=== PATIENT | female | born 1950 | race Hispanic/Latino ===

== ENCOUNTER 2018-09-13 01:54 | Inpatient (IN) | payer OTHER ==
--- NOTE | 2018-09-13 01:42 | ED PDOC ---
Arrival/HPI - General Chief Complaint: Abdominal Pain Time Seen by Provider: 09/13/18 01:59 EDT Historian: Patient, Solar Energy Advisor - History of Present Illness Narrative History of Present Illness (Text): 09/13/18 01:35 EST 68 year old [place] speaking female, whose past medical history includes hypertension, right-sided breast cancer on Tomoxifen, surgery for intestinal obstruction, and history of polyps, presents to the emergency department complaining of abdominal pain associated with nausea and multiple episodes of vomiting that began last night. Patient is coming from a [place]. Patient denies any fevers, chills, chest pain, shortness of breath, diarrhea, back pain, neck pain, urinary symptoms, headache, dizziness, or any other complaint. Time/Duration: 24 hours Symptom Course: Unchanged Activities at Onset: Light Context: Other (Cruise Ship) Past Medical History - Provider Review Nursing Documentation Reviewed: Yes - Infectious Disease Hx of Infectious Diseases: None - Reproductive Menopause: Yes Family/Social History - Physician Review Nursing Documentation Reviewed: Yes Family/Social History: No Known Family HX Allergies/Home Meds Allergies/Adverse Reactions: Allergies No Known Allergies Allergy (Verified 09/13/18 01:12 EST) Home Medications: Home Meds Medication Instructions Recorded Confirmed Unobtainable 09/13/18 09/13/18 Review of Systems - Physician Review All systems were reviewed & negative as marked: Yes - Review of Systems Constitutional: absent: Fevers, Other (Chills) Respiratory: absent: SOB Cardiovascular: absent: Chest Pain Gastrointestinal: Abdominal Pain, Nausea, Vomiting. absent: Diarrhea Genitourinary Female: absent: Dysuria, Frequency, Hematuria Musculoskeletal: absent: Back Pain, Neck Pain Neurological: absent: Headache, Dizziness Physical Exam Vital Signs Reviewed: Yes Vital Signs Temp Pulse Resp BP Pulse Ox 09/13/18 01:14 EST 98.3 F 92 H 18 169/69 H 95 Temperature: Afebrile Blood Pressure: Hypertensive Pulse: Regular Respiratory Rate: Normal Appearance: Positive for: Well-Appearing, Non-Toxic, Comfortable Pain Distress: None Mental Status: Positive for: Alert and Oriented X 3 - Systems Exam Head: Present: Atraumatic, Normocephalic Pupils: Present: PERRL Extroacular Muscles: Present: EOMI Conjunctiva: Present: Normal Mouth: Present: Moist Mucous Membranes Neck: Present: Normal Range of Motion Respiratory/Chest: Present: Clear to Auscultation, Good Air Exchange. No: Respiratory Distress, Accessory Muscle Use Cardiovascular: Present: Regular Rate and Rhythm, Normal S1, S2. No: Murmurs Abdomen: Present: Tenderness (Abdominal diiffuse tenderness ), Distention. No: Peritoneal Signs Back: Present: Normal Inspection Upper Extremity: Present: Normal Inspection. No: Cyanosis, Edema Lower Extremity: Present: Normal Inspection. No: Edema Neurological: Present: GCS=15, CN II-XII Intact, Speech Normal Skin: Present: Warm, Dry, Normal Color. No: Rashes Psychiatric: Present: Alert, Oriented x 3, Normal Insight, Normal Concentration Medical Decision Making ED Course and Treatment: 09/13/18 01:35 EST Impression: 68 year old female presents complaining of abdominal pain associated with nausea and multiple episodes of vomiting that began last night. Plan: -- CT Abd & Pelvis IV Contrast -- EKG -- Labs -- Chest X-ray -- Morphine, Pepcid, IV Fluids, Zofran Inj -- Urinalysis -- Reassess and disposition Progress Notes: 09/13/18 03:30 EKG shows NSR at 91 BPM with prolong QT, no acute changes. Interpreted by me. 09/13/18 05:18 CXR Impression: As read by me, no acute process. EXAM: CT SCAN OF THE ABDOMEN AND PELVIS WITH CONTRAST. Electronically signed on Sep 13, 2018 5:37:44 AM EST by: Yin Mendoza M.D IMPRESSION: Acute sigmoid diverticulitis. Surrounding 7.3x3.8 cm pelvic phlegmon formation. Moderate pneumoperitoneum secondary to diverticular perforation. Diffuse peritoneal inflammatory thickening suggestive of peritonitis. Reactive thickening and enhancement of the adjacent small bowel. Diffuse diverticular disease of the colon. Emergent surgical consultation is recommended. 09/13/18 05:40 Case discussed with surgical first assistant who will come down and evaluate patient. 09/13/18 06:[address] Vides who is aware and agrees with the plan. Accepts patient into his service and request Dr. Pimentel for consult. 09/13/18 06:02 Stat call put in for Dr. Pimentel. Buffet Waiter/Waitress evaluating patient at bed side. 09/13/18 06:15 Patient was admitted but will remain in ER until evaluated by surgery for final disposition and further orders due to possible surgical intervention. - Lab Interpretations I have reviewed the lab results: Yes - EKG Interpretation Interpreted by ED Physician: Yes Type: 12 lead EKG - Scribe Statement The provider has reviewed the documentation as recorded by the Mj Garcias Provider Scribe Attestation: All medical record entries made by the Mj were at my direction and personally dictated by me. I have reviewed the chart and agree that the record accurately reflects my personal performance of the history, physical exam, medical decision making, and the department course for this patient. I have also personally directed, reviewed, and agree with the discharge instructions and disposition. Disposition/Present on Arrival - Present on Arrival Any Indicators Present on Arrival: No History of DVT/PE: No History of Uncontrolled Diabetes: No Urinary Catheter: No History of Decub. Ulcer: No History Surgical Site Infection Following: None - Disposition Have Diagnosis and Disposition been Completed?: Yes Diagnosis: Diverticulitis, Perforation bowel Disposition: HOSPITALIZED Disposition Time: 06:08 Patient Plan: Admission Patient Problems: Current Active Problems Problem Status Onset Diverticulitis Acute Perforation bowel Acute Condition: GUARDED
[~2018-09-13 01:54] MED LIST: Morphine 2 mg/ml ISec IVP STA; Sodium Chloride 0.9% 1,000 ML IV STA
[2018-09-13 02:24] LABS: HEMOGLOBIN 12.3 g/dL (12.0-16.0); MEAN CELL VOLUME 97.9 fl (80.0-105.0); MEAN CORPUSCULAR HEMOGLOBIN 32.8 pg (25.0-35.0); MEAN CORPUSCULAR HGB CONC 33.5 g/dl (31.0-37.0); RBC 3.75 10^6/uL (3.5-6.1); WHITE BLOOD COUNT 16.1 10^3/uL (4.5-11.0)
[2018-09-13 02:30] LABS: ALB/GLOB RATIO 1.1 (1.1-1.8); ALBUMIN 3.1 g/dL (3.0-4.8); ALT/SGPT 37 U/L (7-56); AST/SGOT 23 U/L (14-36); BLOOD UREA NITROGEN 10 mg/dL (7-21); CALCIUM 7.9 mg/dL (8.4-10.5); GFR NON-AFRICAN AMERICAN > 60; LIPASE 11 U/L (23-300)
[2018-09-13] MEDS ORDERED: cefTRIAXone 1 gm 1 GM/100 ML BAG IV STA (02:35)
[2018-09-13] MEDS ORDERED: metroNIDAZOLE IV 500 mg/100 ml 500 MG/100 ML BAG IVPB STA (02:35)
[2018-09-13 02:45] LABS: INR 1.21; PARTIAL THROMBOPLASTIN TIME 26.3 Seconds (25.1-36.5); PROTHROMBIN TIME 13.8 SECONDS (9.4-12.5)
[2018-09-13] MEDS ORDERED: Iohexol 350 MG/100 ML VIAL ONE (03:30)
[2018-09-13] MEDS ORDERED: Piperacillin/Tazobact 3.375 gm 100 ML IV STA (05:42)
[2018-09-13 05:55] LABS: URINE BILIRUBIN NEGATIVE (NEGATIVE); URINE BLOOD NEGATIVE (NEGATIVE); URINE GLUCOSE (UA) NEGATIVE (NEGATIVE); URINE LEUKOCYTE ESTERASE NEGATIVE Leu/uL (NEGATIVE); URINE PROTEIN NEGATIVE mg/dL (<30 mg/dL); URINE UROBILINOGEN 0.2 E.U./dL (<1 E.U./dL)
[2018-09-13 06:03] LABS: URINE APPEARANCE CLEAR (CLEAR); URINE COLOR YELLOW (YELLOW)
[2018-09-13] MEDS ORDERED: HYDROmorphone 1 mg/ml ISec IVP PRN (06:58)
[2018-09-13] MEDS ORDERED: cefTRIAXone 500 MG in Sodium Chloride 0.9% 50 ML IVPB SCH (07:00)
[2018-09-13] MEDS: metroNIDAZOLE IV 500 mg/100 ml 500 MG/100 ML BAG IVPB SCH ×3 (08:10→23:00)
[2018-09-13 08:17] LABS: VENOUS BLOOD GAS BASE EXCESS -0.5 mmol/L (0.0-2.0); VENOUS BLOOD GAS PO2 226 mm/Hg (30-55); VENOUS BLOOD PH 7.44 (7.32-7.43)
--- NOTE | 2018-09-13 09:11 | RAD ---
Date of service: 09/13/2018 HISTORY: abdominal pain COMPARISON: No prior. FINDINGS: LUNGS: No active pulmonary disease. PLEURA: No significant pleural effusion identified, no pneumothorax apparent. CARDIOVASCULAR: Aortic calcification Normal cardiac size. No pulmonary vascular congestion. OSSEOUS STRUCTURES: No significant abnormalities. VISUALIZED UPPER ABDOMEN: Normal. OTHER FINDINGS: None. IMPRESSION: No active disease.
--- NOTE | 2018-09-13 10:01 | CARD ---
APPROVED REPORT Date of service: 09/13/2018 EKG Measurement Heart [id number] <Conclusion> Normal sinus rhythm Prolonged QT Abnormal ECG
[2018-09-13] MEDS ORDERED: Morphine 2 mg/ml ISec IVP PRN (10:02)
--- NOTE | 2018-09-13 10:39 | CP.PCM.CON ---
History of Present Illness - History of Present Illness History of Present Illness: General Surgery Consult Note for Dr. 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 Patient came from a [place] cruise [place] and does not speak gu[place], cook mess used for interpretation. States last night at 7pm she began having excruciating sharp diffuse abdominal pain. She had a similar pain episode 22 years ago when she had a volvulus. Movement aggravates while the pain medication helped alleviate the pain. Admits to subjective fever prior to arrival, multiple episodes of vomiting, nausea. 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 absent: Chills - Cardiovascular Cardiovascular: absent: Chest Pain, Dyspnea - Respiratory Respiratory: absent: Cough, Dyspnea - Gastrointestinal Gastrointestinal: Abdominal Pain, Nausea, Vomiting Past Patient History - Infectious Disease Hx of Infectious Diseases: None - Past Social History Smoking Status: Never Smoked - CARDIAC Hx Hypertension: Yes - HEMATOLOGICAL/ONCOLOGICAL Hx Cancer: Yes (right breast cancer 22 years ago) - PSYCHIATRIC Hx Substance Use: No - SURGICAL HISTORY Other/Comment: hx of obstruction - ANESTHESIA Hx Anesthesia: Yes Hx Anesthesia Reactions: No Hx Malignant Hyperthermia: No Meds Allergies/Adverse Reactions: Allergies Allergy/AdvReac Type Severity Reaction Status Date / Time No Known Allergies Allergy Verified 09/13/18 01:12 EST - Medications Medications: Current Medications Ceftriaxone Sodium 500 mg/ (Sodium Chloride) 50 mls @ 100 mls/hr IVPB Q24H LISA; Protocol Metronidazole (Flagyl) 500 mg in 100 mls @ 100 mls/hr IVPB Q8 LISA; Protocol Last Admin: 09/13/18 08:10 Dose: 100 mls/hr Lactated Ringer's (Lactated Ringer's) 1,000 mls @ 110 mls/hr IV .Q9H6M LISA Morphine Sulfate (Morphine) 2 mg IVP Q4H PRN PRN Reason: Pain, moderate (4-7) Ondansetron HCl (Zofran Inj) 4 mg IVP Q4H PRN PRN Reason: Nausea/Vomiting Physical Exam - Constitutional Appears: Toxic, In Acute Distress - Head Exam Head Exam: ATRAUMATIC, NORMAL INSPECTION, NORMOCEPHALIC - Eye Exam Eye Exam: EOMI - ENT Exam ENT Exam: Mucous Membranes Dry - Cardiovascular Exam Cardiovascular Exam: REGULAR RHYTHM - GI/Abdominal Exam GI & Abdominal Exam: Distended, Firm, Rebound, Tenderness - Neurological Exam Neurological exam: Alert - Psychiatric Exam Psychiatric exam: Normal Affect, Normal Mood Results - Vital Signs Recent Vital Signs: Last Vital Signs Temp 98 F 09/13/18 08:12 Pulse 70 09/13/18 08:12 Resp 18 09/13/18 08:12 BP 160/71 H 09/13/18 08:12 Pulse Ox 99 09/13/18 08:12 - Labs Result Diagrams: 09/13/18 02:15 09/13/18 02:15 Labs: Laboratory Results - last 24 hr 09/13/18 09/13/18 09/13/18 02:15 02:15 02:26 WBC 16.1 H RBC 3.75 Hgb 12.3 Hct 36.7 MCV 97.9 MCH 32.8 MCHC 33.5 RDW 13.0 Plt Count 169 MPV 11.0 PT 13.8 H INR 1.21 APTT 26.3 pO2 VBG pH VBG pCO2 VBG HCO3 VBG Total CO2 VBG O2 Sat (Calc) VBG Base Excess VBG Potassium Glucose Lactate FiO2 Sodium 139 Potassium 3.6 Chloride 108 H Carbon Dioxide 23 Anion Gap 11 BUN 10 Creatinine 0.4 L Est GFR ( Amer) > 60 Est GFR (Non-Af Amer) > 60 Random Glucose 117 H Calcium 7.9 L Total Bilirubin 1.8 H AST 23 ALT 37 Alkaline Phosphatase 50 Total Protein 5.9 Albumin 3.1 Globulin 2.8 Albumin/Globulin Ratio 1.1 Lipase 11 L Venous Blood Potassium Urine Color Urine Appearance Urine pH Ur Specific [place] Urine Protein Urine Glucose (UA) Urine Ketones Urine Blood Urine Nitrate Urine Bilirubin Urine Urobilinogen Ur Leukocyte Esterase 09/13/18 09/13/18 05:00 08:00 WBC RBC Hgb Hct MCV MCH MCHC RDW Plt Count MPV PT INR APTT pO2 226 H VBG pH 7.44 H VBG pCO2 34.0 L VBG HCO3 23.1 VBG Total CO2 24.1 VBG O2 Sat (Calc) 99.4 H VBG Base Excess -0.5 L VBG Potassium 3.7 Glucose 123 H Lactate 1.8 FiO2 21.0 Sodium 141.0 Potassium Chloride 111.0 H Carbon Dioxide Anion Gap BUN Creatinine Est GFR ( Amer) Est GFR (Non-Af Amer) Random Glucose Calcium Total Bilirubin AST ALT Alkaline Phosphatase Total Protein Albumin Globulin Albumin/Globulin Ratio Lipase Venous Blood Potassium 3.7 Urine Color Yellow Urine Appearance Clear Urine pH 7.0 Ur Specific [place] 1.010 Urine Protein Negative Urine Glucose (UA) Negative Urine Ketones 15 H Urine Blood Negative Urine Nitrate Negative Urine Bilirubin Negative Urine Urobilinogen 0.2 Ur Leukocyte Esterase Negative Assessment & Plan - Assessment and Plan (Free Text) Assessment: 68F w/ acute abdomen 2/2 diverticulitis with abscess formation Plan: NPO IVF Pain control and antiemetics IV Abx Serial abdominal exams Recommend IR drainage If patient begins to clinically deteriorate/become hemodynamically unstable, prepare for OR Further recommendations per Dr. Margarito Trinidad PGY1
--- NOTE | 2018-09-13 13:15 | CT ---
Date of service: 09/13/2018 PROCEDURE: CT Abdomen and Pelvis with contrast HISTORY: abdominal pain COMPARISON: None. TECHNIQUE: Contrast dose: 100 cc of Omni 350 Radiation dose: Total exam DLP = 281.25 mGy-cm. This CT exam was performed using one or more of the following dose reduction techniques: Automated exposure control, adjustment of the mA and/or kV according to patient size, and/or use of iterative reconstruction technique. FINDINGS: LOWER THORAX: There is a moderate amount of free air seen beneath the diaphragms LIVER: Mild fatty infiltration of the liver. GALLBLADDER AND BILE DUCTS: Unremarkable. PANCREAS: Unremarkable. No gross lesion or ductal dilatation. SPLEEN: Unremarkable. ADRENALS: Unremarkable. No mass. KIDNEYS AND URETERS: Unremarkable. No hydronephrosis. No solid mass. VASCULATURE: Unremarkable. No aortic aneurysm. Aortic calcifications BOWEL: The source of the free air appears to be due to diverticulitis in the sigmoid colon. There is a fluid collection on the right side of the rectosigmoid consistent with an abscess. This measures 3.5 x 5 cm. APPENDIX: Normal appendix. PERITONEUM: Moderate free air LYMPH NODES: Unremarkable. No enlarged lymph nodes. BLADDER: Unremarkable. REPRODUCTIVE: Unremarkable. BONES: No acute fracture. OTHER FINDINGS: The report concurs with the preliminary [facility] report IMPRESSION: Severe sigmoid diverticulitis with diverticular abscess and moderate pneumoperitoneum.
[2018-09-13] MEDS ORDERED: HYDROmorphone 0.5 mg/0.5 ml ISec IVP STA (15:34)
--- NOTE | 2018-09-13 15:47 | HP ---
HISTORY OF PRESENT ILLNESS: She is a 68-year-old Citizen Of [place]-speaking female who presents with abdominal pain associated with nausea, multiple episodes of vomiting over the past 24 to 36 hours. She was [place] the cruise ship. PAST MEDICAL HISTORY: She has a past medical history of hypertension, right-sided breast cancer on tamoxifen. She had intestinal obstruction in the past and had surgery. She had history of polyps. She is not feeling well. She has had the abdominal pain, nausea and vomiting. She is alert. I had to have the waiter/waitress cocktail lounge Citizen Of [place]brew waiter/waitress cocktail lounge machine at bedside. We had a nice long discussion with the waiter/waitress cocktail lounge. FAMILY HISTORY: No known family history. ALLERGIES: NO KNOWN ALLERGIES. MEDICATIONS: Unobtainable. REVIEW OF SYSTEMS: No acute vision or hearing issues. She has chills. No shortness of breath. No chest pain. She has abdominal pain, nausea, vomiting. No problems urinating. No back pain or neck pain. No headache or dizziness. PHYSICAL EXAMINATION: VITAL SIGNS: She has a 98.3 temperature, 92 pulse, 18 respiratory rate, 169/69 blood pressure, 95% O2 sat. GENERAL: Uncomfortable abdominal pain, looking at me, talking. Alert and oriented x3. HEENT: Head is atraumatic, normocephalic. Extraocular muscles are intact. Pupils are equal and reactive to light. Throat is dry. NECK: Supple. HEART: Regular rate. Normal S1, S2. LUNGS: Decreased breath sounds but clear to auscultation bilaterally. ABDOMEN: Diffusely tender everywhere. Positive guarding, no rebound, almost no bowel sounds at all. EXTREMITIES: No edema. NEUROLOGIC: GCS is 50. Cranial nerves II-XII grossly intact. Normal speech. SKIN: Warm and dry. No apparent rashes or ulcers appreciated. LYMPHS: Thyroid midline. No palpable appreciable lymphadenopathy. Alert and oriented x3, in distress, nausea, vomiting and abdominal pain. She has consults with Surgery and Infectious Disease. MEDICATIONS: She is currently on Rocephin, morphine, lactated Ringer's, Zofran. LABORATORY DATA: She has a urine which was clean. Sodium 139, potassium 3.6, BUN 10, creatinine 0.4, GFR is greater than 60, sugar is 117. Calcium 7.9, total bili is 1.8, AST is 23, ALT is 37, alk phos is 50, total protein is 5.9, albumin is 3.7, lipase is 11. She had 1.8 lactate. INR is 1.21. White count is high at 16.1, hemoglobin 12.3, hematocrit 36.7, platelets of 169. DIAGNOSTICS: CAT scan is pending. Chest x-ray was clear. EKG was clear. ASSESSMENT: She is looking at a diagnosis of diverticulitis versus perforation of bowel. Surgery is on the case, Infectious Disease is on the case. IV antibiotics, IV fluids, n.p.o. Wait for Surgery and Infectious Disease to see her. Check her labs tomorrow with a CAT scan of the abdomen and pelvis to report back, hopefully she will improve. Bethel Vides DO
[2018-09-13] MEDS: Piperacill/Tazo 4.5gm in NS 4.5 GM/100 ML BAG IVPB SCH (16:08)
[2018-09-14] MEDS: Piperacill/Tazo 4.5gm in NS 4.5 GM/100 ML BAG IVPB SCH ×4 (00:15→22:06)
--- NOTE | 2018-09-14 00:51 | CON ---
DATE: 09/13/2018 CHIEF COMPLAINT: Abdominal pain times several days. HISTORY OF PRESENT ILLNESS: This is a 68-year-old female [place] woman [place] with hypertension; history of right-sided breast cancer, on tamoxifen, and has had surgery for intestinal obstruction in the past; history of polyps; presents to the emergency room with abdominal pain associated with nausea, multiple episodes of vomiting. She denies any chest pain or shortness of breath. No diarrhea. No headaches or blurred vision. No dysuria or frequency. REVIEW OF SYSTEMS: The patient's review of systems reveals 14-point review of systems is performed. No fevers or chills reported. No chest pain or shortness of breath. There is abdominal pain with nausea and vomiting. No diarrhea reported. No dysuria, frequency, or hematuria. PAST MEDICAL HISTORY: Breast cancer with tamoxifen and polyps based from a cruise ship. The patient also with hypertension. PAST SURGICAL HISTORY: Significant for abdominal surgery in the past. ALLERGIES: THE PATIENT HAS NO KNOWN ALLERGIES. MEDICATIONS: At home are noted to be tamoxifen. PHYSICAL EXAMINATION GENERAL: The patient is in bed, appears to be uncomfortable. VITAL SIGNS: Temperature of 98, heart rate of 93 to 95, respiratory rate of 18, blood pressure is 160/80. HEENT: Unremarkable. NECK: Supple. LUNGS: Have decreased breath sounds. HEART: Normal S1, S2. ABDOMEN: Tenderness. No rebound, no guarding, no masses. LABORATORY DATA: Laboratory examination reveals a white count of 16,100, hemoglobin of 12, platelets of 169. Chemistries revealed a BUN of 10, creatinine 0.4. The patient's urinalysis is noted. Microbiology is pending. DIAGNOSTIC DATA: The patient had a CT scan of the abdomen and pelvis which reveals the patient to have severe sigmoid diverticulitis with diverticular abscess and moderate pneumoperitoneum. The patient also had a chest x-ray, no active disease. Dr. Delacruz' consultation is reviewed. General surgical consultation for Dr. Pimentel is being called, possible OR as per Dr. Pimentel. ASSESSMENT AND PLAN: This is a 68-year-old [place] female who has breast cancer, on tamoxifen, and polyps from a cruise ship, now admitted with severe sigmoid diverticulitis with diverticular abscess with pneumoperitoneum. We will start the patient on Zosyn and GI consultation. We will discuss with Dr. Pimentel regarding need for surgery pending pancultures and blood culture results with pneumoperitoneum on CAT scan findings. We will make further recommendations. Nehemiah Parham MD
[2018-09-14] MEDS: metroNIDAZOLE IV 500 mg/100 ml 500 MG/100 ML BAG IVPB SCH ×3 (05:21→22:08)
[2018-09-14] MEDS: HYDROmorphone 0.5 mg/0.5 ml ISec IVP PRN ×2 (06:13→22:08)
[2018-09-14] MEDS: Lactated Ringer's 1,000 ML IV SCH ×2 (06:14→18:46)
[2018-09-14 07:11] LABS: HEMOGLOBIN 10.6 g/dL (12.0-16.0); MEAN CELL VOLUME 98.5 fl (80.0-105.0); MEAN CORPUSCULAR HEMOGLOBIN 32.3 pg (25.0-35.0); MEAN CORPUSCULAR HGB CONC 32.8 g/dl (31.0-37.0); RBC 3.28 10^6/uL (3.5-6.1); RED CELL DISTRIBUTION WIDTH 13.1 % (11.5-14.5); WHITE BLOOD COUNT 13.6 10^3/uL (4.5-11.0)
[2018-09-14 08:08] LABS: ALBUMIN 2.7 g/dL (3.0-4.8); ALT/SGPT 31 U/L (7-56); AST/SGOT 21 U/L (14-36); BLOOD UREA NITROGEN 9 mg/dL (7-21); GFR NON-AFRICAN AMERICAN > 60
--- NOTE | 2018-09-14 08:58 | PN ---
DATE: 09/14/2018 SUBJECTIVE: She is from the cruise ship. She is from [place]. She is having abdominal pain. Apparently, she has an abscess and microperforation of the intestine with diverticulitis and she is on Dilaudid, Flagyl IV, lactated Ringer's, morphine, Pepcid, potassium replacement, Rocephin IV, Tylenol, Zofran as needed, Zosyn IV. PHYSICAL EXAMINATION: VITAL SIGNS: She has 99.3 temperature, 98 pulse, 160/79 blood pressure, 18 respiratory rate, 98% O2 sat on room air. HEAD: Atraumatic, normocephalic. HEART: Regular rate. LUNGS: Decreased breath sounds. ABDOMEN: Mildly distended. Decreased bowel sounds. Very tender all over diffusely from guarding, no rebound. EXTREMITIES: No edema. LABORATORY DATA: She has a 13.6 white count, little bit better, 10.6 hemoglobin, 32.3 hematocrit with 149 platelets. She has a 140 sodium, potassium is 2.9, replaced the potassium. BUN is 9, creatinine 0.6, GFR greater than 60, sugar is 90, calcium is 8, total bili is 1.1, AST is 21, ALT is 31, alk phos 65, total protein is 5.3. Urine was clean. Today, we are going to try and do an interventional radiology drainage of the abscess. Surgery is on backup just in case. Also, I called in Cardiology to prepare for possible clearance for a surgery if this does not work out. I am happy that the white count is getting better. Continue with aggressive treatment and care on this nice young lady who has got diverticulitis the microperforation and abscess of the belly. Bethel Vides DO
--- NOTE | 2018-09-14 10:10 | CP.PCM.CON ---
<Maria Elena Knox - Last Filed: 09/14/18 10:02> History of Present Illness - History of Present Illness History of Present Illness: Gastroenterology Fellow/PGY6 Consult Note 68 year old female with PMH of HTN, HLD, and Right Breast Cancer s/p chemoradiation and lumpectomy (1995) and intestinal resection in 1995 presenting with abdominal pain. Patient notes sudden onset of bilateral lower quadrant pain L>R on day 12 of cruise with associated multiple food vomitus episodes. Endorses eating salad-based foods the entire trip. Denies consumption of raw fish, fried rice, sandwich meats, or potato/macaroni salads. Associated fever, chills, sweats. Denies hematemesis, acid reflux, bloating, diarrhea, melena, hematochezia, unintentional weight loss, or prior similar episodes. Admits to EGD/colonoscopy every five years in [facility] since colonic resection 1995. Last endoscopic evaluation two years ago endorsed to be normal with prior history of polyps. Family History- denies Breast cancer, colon cancer Social History- social ETOH use, denies tobacco/illict drug use Surgical History -, appendectomy, colonic resection, right breast lumpectomy Review of Systems - Review of Systems Review of Systems: 12-point review of systems negative except for as above Past Patient History - Infectious Disease Hx of Infectious Diseases: None - Past Social History Smoking Status: Never Smoked - CARDIAC Hx Hypertension: Yes - HEMATOLOGICAL/ONCOLOGICAL Hx Cancer: Yes (right breast cancer 22 years ago) - MUSCULOSKELETAL/RHEUMATOLOGICAL Hx Falls: No - PSYCHIATRIC Hx Substance Use: No - SURGICAL HISTORY Other/Comment: hx of obstruction - ANESTHESIA Hx Anesthesia: Yes Hx Anesthesia Reactions: No Hx Malignant Hyperthermia: No Meds Allergies/Adverse Reactions: Allergies Allergy/AdvReac Type Severity Reaction Status Date / Time No Known Allergies Allergy Verified 09/13/18 01:12 EST - Medications Medications: Current Medications Acetaminophen (Tylenol 325mg Tab) 650 mg PO Q6H PRN PRN Reason: Fever >100.4 F Last Admin: 09/13/18 16:07 Dose: 650 mg Hydromorphone HCl (Dilaudid) 0.5 mg IVP Q4H PRN PRN Reason: Pain, severe (8-10) Last Admin: 09/14/18 06:13 Dose: 0.5 mg Metronidazole (Flagyl) 500 mg in 100 mls @ 100 mls/hr IVPB Q8 [facility]; Protocol Last Admin: 09/14/18 05:21 Dose: 100 mls/hr Lactated Ringer's (Lactated Ringer's) 1,000 mls @ 110 mls/hr IV .Q9H6M [facility] Last Admin: 09/14/18 06:14 Dose: 110 mls/hr Piperacillin Sod/Tazobactam Sod (Zosyn 4.5 Gm In Ns 100ml) 4.5 gm in 100 mls @ 25 mls/hr IVPB Q8 [facility]; Protocol Stop: 09/22/18 15:15 Last Admin: 09/14/18 06:13 Dose: 25 mls/hr Potassium Chloride (Potassium Chloride 10 Meq/100 Ml) 10 meq in 100 mls @ 50 mls/hr IVPB Q2H [facility] Stop: 09/14/18 12:14 Last Admin: 09/14/18 08:45 Dose: 50 mls/hr Potassium Chloride (Potassium Chloride 20 Meq/100 Ml) 20 meq in 100 mls @ 50 mls/hr IVPB Q2H [facility] Stop: 09/14/18 13:29 Morphine Sulfate (Morphine) 2 mg IVP Q4H PRN PRN Reason: Pain, moderate (4-7) Ondansetron HCl (Zofran Inj) 4 mg IVP Q4H PRN PRN Reason: Nausea/Vomiting Physical Exam - Constitutional Appears: Non-toxic, No Acute Distress - Head Exam Head Exam: ATRAUMATIC, NORMOCEPHALIC - Eye Exam Eye Exam: EOMI, PERRL. absent: Scleral icterus Pupil Exam: PERRL. absent: Miosis, Mydriatic - ENT Exam ENT Exam: Mucous Membranes Dry, Normal Oropharynx - Neck Exam Neck exam: Positive for: Full Rom, Normal Inspection - Respiratory Exam Respiratory Exam: Clear to Auscultation Bilateral. absent: Rales, Rhonchi, Wheezes - Cardiovascular Exam Cardiovascular Exam: Tachycardia, +S1, +S2. absent: Gallop, Rubs - GI/Abdominal Exam GI & Abdominal Exam: Hypoactive Bowel Sounds, Soft, Tenderness. absent: Distended, Firm, Guarding, Mass, Rebound, Rigid Additional comments: diffuse tenderness to palpation - Extremities Exam Extremities exam: Positive for: pedal edema - Neurological Exam Neurological exam: Alert, Oriented x3 - Psychiatric Exam Psychiatric exam: Normal Affect, Normal Mood - Skin Skin Exam: Diaphoretic, Warm Results - Vital Signs Recent Vital Signs: Last Vital Signs Temp 99.8 F H 09/14/18 06:00 Pulse 112 H 09/14/18 06:00 Resp 20 09/14/18 06:00 BP 141/69 09/14/18 06:00 Pulse Ox 96 09/14/18 06:00 - Labs Result Diagrams: 09/14/18 06:30 09/14/18 06:30 Labs: Laboratory Results - last 24 hr 09/13/18 09/13/18 09/14/18 17:15 18:00 06:30 WBC 13.6 H RBC 3.28 L Hgb 10.6 L Hct 32.3 L MCV 98.5 MCH 32.3 MCHC 32.8 RDW 13.1 Plt Count 149 MPV 10.0 Sodium Potassium Chloride Carbon Dioxide Anion Gap BUN Creatinine Est GFR ( Amer) Est GFR (Non-Af Amer) Random Glucose Calcium Total Bilirubin AST ALT Alkaline Phosphatase Total Protein Albumin Globulin Albumin/Globulin Ratio Blood Type A NEGATIVE Blood Type Confirm A NEGATIVE Antibody Screen Negative BBK History Checked No verified bt 09/14/18 06:30 WBC RBC Hgb Hct MCV MCH MCHC RDW Plt Count MPV Sodium 140 Potassium 2.9 L* Chloride 110 H Carbon Dioxide 20 L Anion Gap 14 BUN 9 Creatinine 0.6 L Est GFR ( Amer) > 60 Est GFR (Non-Af Amer) > 60 Random Glucose 90 Calcium 8.0 L Total Bilirubin 1.1 AST 21 ALT 31 Alkaline Phosphatase 65 Total Protein 5.3 L Albumin 2.7 L Globulin 2.6 Albumin/Globulin Ratio 1.0 L Blood Type Blood Type Confirm Antibody Screen BBK History Checked Assessment & Plan - Assessment and Plan (Free Text) Assessment: 68 year old female with PMH of HTN, HLD, and Right Breast Cancer s/p chemoradiation and lumpectomy (1995) and intestinal resection in 1995 presenting with abdominal pain. Active treatment of sepsis 2/2 to severe complicated rectosigmoid diverticulitis with sigmoid 3.5x5cm abscess and moderate pneumoperitoneum noted on CT A/P IV contrast. Admits to EGD/colonoscopy every five years in [place] since colonic resection 1995. Last endoscopic evaluation two years ago endorsed to be normal with prior history of polyps. Plan: -NPO -surgery managing- planned for IR abscess drainage today -09/13 on Zosyn and Flagyl -continue IVFs -supportive care- anti-emetics, pain control -close monitoring of clinical status, surgical intervention planned if signs of clinical decompensation <Ilia Fallon - Last Filed: 09/14/18 11:12> Meds - Medications Medications: Current Medications Acetaminophen (Tylenol 325mg Tab) 650 mg PO Q6H PRN PRN Reason: Fever >100.4 F Last Admin: 09/13/18 16:07 Dose: 650 mg Hydromorphone HCl (Dilaudid) 0.5 mg IVP Q4H PRN PRN Reason: Pain, severe (8-10) Last Admin: 09/14/18 06:13 Dose: 0.5 mg Metronidazole (Flagyl) 500 mg in 100 mls @ 100 mls/hr IVPB Q8 [facility]; Protocol Last Admin: 09/14/18 05:21 Dose: 100 mls/hr Lactated Ringer's (Lactated Ringer's) 1,000 mls @ 110 mls/hr IV .Q9H6M [facility] Last Admin: 09/14/18 06:14 Dose: 110 mls/hr Piperacillin Sod/Tazobactam Sod (Zosyn 4.5 Gm In Ns 100ml) 4.5 gm in 100 mls @ 25 mls/hr IVPB Q8 [facility]; Protocol Stop: 09/22/18 15:15 Last Admin: 09/14/18 06:13 Dose: 25 mls/hr Potassium Chloride (Potassium Chloride 10 Meq/100 Ml) 10 meq in 100 mls @ 50 mls/hr IVPB Q2H [facility] Stop: 09/14/18 12:14 Last Admin: 09/14/18 10:45 Dose: 50 mls/hr Potassium Chloride (Potassium Chloride 20 Meq/100 Ml) 20 meq in 100 mls @ 50 mls/hr IVPB Q2H [facility] Stop: 09/14/18 13:29 Morphine Sulfate (Morphine) 2 mg IVP Q4H PRN PRN Reason: Pain, moderate (4-7) Ondansetron HCl (Zofran Inj) 4 mg IVP Q4H PRN PRN Reason: Nausea/Vomiting Results - Vital Signs Recent Vital Signs: Last Vital Signs Temp 99.8 F H 09/14/18 06:00 Pulse 112 H 09/14/18 06:00 Resp 20 09/14/18 06:00 BP 141/69 09/14/18 06:00 Pulse Ox 96 09/14/18 06:00 - Labs Result Diagrams: 09/14/18 06:30 09/14/18 06:30 Labs: Laboratory Results - last 24 hr 09/13/18 09/13/18 09/14/18 17:15 18:00 06:30 WBC 13.6 H RBC 3.28 L Hgb 10.6 L Hct 32.3 L MCV 98.5 MCH 32.3 MCHC 32.8 RDW 13.1 Plt Count 149 MPV 10.0 Sodium Potassium Chloride Carbon Dioxide Anion Gap BUN Creatinine Est GFR ( Amer) Est GFR (Non-Af Amer) Random Glucose Calcium Total Bilirubin AST ALT Alkaline Phosphatase Total Protein Albumin Globulin Albumin/Globulin Ratio Blood Type A NEGATIVE Blood Type Confirm A NEGATIVE Antibody Screen Negative BBK History Checked No verified bt 09/14/18 06:30 WBC RBC Hgb Hct MCV MCH MCHC RDW Plt Count MPV Sodium 140 Potassium 2.9 L* Chloride 110 H Carbon Dioxide 20 L Anion Gap 14 BUN 9 Creatinine 0.6 L Est GFR ( Amer) > 60 Est GFR (Non-Af Amer) > 60 Random Glucose 90 Calcium 8.0 L Total Bilirubin 1.1 AST 21 ALT 31 Alkaline Phosphatase 65 Total Protein 5.3 L Albumin 2.7 L Globulin 2.6 Albumin/Globulin Ratio 1.0 L Blood Type Blood Type Confirm Antibody Screen BBK History Checked Attending/Attestation - Attestation I have personally seen and examined this patient.: Yes I have fully participated in the care of the patient.: Yes I have reviewed all pertinent clinical information: Yes Notes (Text): 09/14/18 11:06 I have seen and examined patient with GI fellow with assistance of Ghanaian translation via telephone services. Agree with above documentation with the following additions. In brief, this is a 68 year old female with history of breast cancer, HTN, hyperlipidemia who presents with complaint of abdominal pain while on cruise ship. She developed sudden onset left sided discomfort, 10/10 intensity associated with multiple episodes of nausea and non-bloody emesis and chills. Prior to this at the beginning of her trip she was in usual state of health. She denies recent weight loss, rectal bleeding, or similar prior epi sodes. She did apparently have a partial colon resection over 20 years ago for unclear reasons. She had a colonoscopy 2 years ago in [place] which was normal as per patient. Additional physical examination: Abdomen: no palpable hepato/splenomegaly History of breast cancer HTN Hyperlipidemia Abdominal pain - acute sigmoid diverticulitis complicated by modesta-colonic abscess and free air as visualized on CT imaging - NPO - Continue with antibiotic therapy - IR has been consulted for potential abcess drainage, follow up results - Follow up surgical recommendations - Serial abdominal examination, will continue to monitor patient clinical course
[2018-09-14] MEDS ORDERED: Midazolam 2 MG/2 ML VIAL ONE (12:28)
[2018-09-14] MEDS ORDERED: Lidocaine 1% Inj (20ml) ONE (12:28)
--- NOTE | 2018-09-14 12:35 | CP.PCM.PN ---
Subjective - Date & Time of Evaluation Date of Evaluation: 09/14/18 Time of Evaluation: 07:30 - Subjective Subjective: General Surgery Progress Note for Dr. Pimentel 68F, seen and evaluated at bedside this morning. No acute events overnight. States pain is now more midline however controled with pain medication. Remains NPO. Minimal ambulation. Admits to some difficulties with urination because of pain/pressure but is urinating. Denies f/c, n/v/d, SOB, CP. Objective - Vital Signs/Intake and Output Vital Signs (last 24 hours): Temp Pulse Resp BP Pulse Ox 99.8 F H 112 H 20 141/69 96 09/14/18 06:00 09/14/18 06:00 09/14/18 06:00 09/14/18 06:00 09/14/18 06:00 - Medications Medications: Current Medications Acetaminophen (Tylenol 325mg Tab) 650 mg PO Q6H PRN PRN Reason: Fever >100.4 F Last Admin: 09/13/18 16:07 Dose: 650 mg Hydromorphone HCl (Dilaudid) 0.5 mg IVP Q4H PRN PRN Reason: Pain, severe (8-10) Last Admin: 09/14/18 06:13 Dose: 0.5 mg Metronidazole (Flagyl) 500 mg in 100 mls @ 100 mls/hr IVPB Q8 [facility]; Protocol Last Admin: 09/14/18 05:21 Dose: 100 mls/hr Lactated Ringer's (Lactated Ringer's) 1,000 mls @ 110 mls/hr IV .Q9H6M [facility] Last Admin: 09/14/18 06:14 Dose: 110 mls/hr Piperacillin Sod/Tazobactam Sod (Zosyn 4.5 Gm In Ns 100ml) 4.5 gm in 100 mls @ 25 mls/hr IVPB Q8 [facility]; Protocol Stop: 09/22/18 15:15 Last Admin: 09/14/18 06:13 Dose: 25 mls/hr Potassium Chloride (Potassium Chloride 20 Meq/100 Ml) 20 meq in 100 mls @ 50 mls/hr IVPB Q2H [facility] Stop: 09/14/18 13:29 Morphine Sulfate (Morphine) 2 mg IVP Q4H PRN PRN Reason: Pain, moderate (4-7) Ondansetron HCl (Zofran Inj) 4 mg IVP Q4H PRN PRN Reason: Nausea/Vomiting - Labs Labs: 09/14/18 06:30 09/14/18 06:30 PT 13.8 SECONDS (9.4-12.5) H 09/13/18 02:26 INR 1.21 09/13/18 02:26 APTT 26.3 Seconds (25.1-36.5) 09/13/18 02:26 - Constitutional Appears: Non-toxic, No Acute Distress - Head Exam Head Exam: ATRAUMATIC, NORMAL INSPECTION, NORMOCEPHALIC - Eye Exam Eye Exam: EOMI - ENT Exam ENT Exam: Mucous Membranes Dry - Cardiovascular Exam Cardiovascular Exam: REGULAR RHYTHM - GI/Abdominal Exam GI & Abdominal Exam: Distended, Soft, Tenderness, Rebound. absent: Guarding - Neurological Exam Neurological Exam: Alert, Awake - Psychiatric Exam Psychiatric exam: Normal Affect, Normal Mood Assessment and Plan - Assessment and Plan (Free Text) Assessment: 68F w/ diverticulitis, phlegmon, and free air Plan: F/u IR drainage Serial abdominal exams AM labs IVF IV Abx NPO Pain control and antiemetics If patient becomes hemodynamically unstable, prep for OR Further recommendations per Dr. Margarito Trinidad PGY1
[2018-09-14] MEDS ORDERED: Midazolam 2 MG/2 ML VIAL IVP ONE (14:00)
[2018-09-14] MEDS ORDERED: BISOPROLOL PO SCH ×2 (17:00→17:33)
[2018-09-14] MEDS ORDERED: [UNRECOGNIZED DRUG - OTHER] PO SCH ×2 (17:00→17:33)
[2018-09-14] MEDS: BISOPROLOL PO SCH (18:45)
[2018-09-14] MEDS: [UNRECOGNIZED DRUG - OTHER] PO SCH (18:45)
--- NOTE | 2018-09-14 19:08 | CP.PCM.PN ---
Subjective - Date & Time of Evaluation Date of Evaluation: 09/14/18 Time of Evaluation: 10:35 - Subjective Subjective: Patient has no increased abdominal pain, no fevers. Objective - Vital Signs/Intake and Output Vital Signs (last 24 hours): Temp Pulse Resp BP Pulse Ox 99.3 F 98 H 18 160/79 H 98 09/13/18 23:24 09/13/18 23:24 09/13/18 23:24 09/13/18 23:24 09/13/18 23:24 - Medications Medications: Current Medications Acetaminophen (Tylenol 325mg Tab) 650 mg PO Q6H PRN PRN Reason: Fever >100.4 F Last Admin: 09/13/18 16:07 Dose: 650 mg Hydromorphone HCl (Dilaudid) 0.5 mg IVP Q4H PRN PRN Reason: Pain, severe (8-10) Last Admin: 09/14/18 06:13 Dose: 0.5 mg Metronidazole (Flagyl) 500 mg in 100 mls @ 100 mls/hr IVPB Q8 [facility]; Protocol Last Admin: 09/14/18 05:21 Dose: 100 mls/hr Lactated Ringer's (Lactated Ringer's) 1,000 mls @ 110 mls/hr IV .Q9H6M [facility] Last Admin: 09/14/18 06:14 Dose: 110 mls/hr Piperacillin Sod/Tazobactam Sod (Zosyn 4.5 Gm In Ns 100ml) 4.5 gm in 100 mls @ 25 mls/hr IVPB Q8 [facility]; Protocol Stop: 09/22/18 15:15 Last Admin: 09/14/18 06:13 Dose: 25 mls/hr Morphine Sulfate (Morphine) 2 mg IVP Q4H PRN PRN Reason: Pain, moderate (4-7) Ondansetron HCl (Zofran Inj) 4 mg IVP Q4H PRN PRN Reason: Nausea/Vomiting - Labs Labs: 09/13/18 02:15 09/13/18 02:15 PT 13.8 SECONDS (9.4-12.5) H 09/13/18 02:26 INR 1.21 09/13/18 02:26 APTT 26.3 Seconds (25.1-36.5) 11/04/18 02:26 - Constitutional Appears: Chronically Ill - Head Exam Head Exam: NORMAL INSPECTION - Respiratory Exam Respiratory Exam: Decreased Breath Sounds - Cardiovascular Exam Cardiovascular Exam: +S1, +S2 - GI/Abdominal Exam GI & Abdominal Exam: Soft. absent: Tenderness Assessment and Plan - Assessment and Plan (Free Text) Plan: Assessment Sepsis from severe sigmoid diverticulitis with diverticular abscess history of breast cancer S/P right breast partial mastectomy HTN dyslipidemia history of cecal volvulus S/P bowel resection Plan continue Zosyn - patient is planned for IR-guided drainage of abscess will continue to monitor clinically
--- NOTE | 2018-09-14 19:44 | CT ---
Date of service: 09/14/2018 PROCEDURE: CT-guided pelvic abscess drainage HISTORY: Diverticulitis with pelvic abscess. Needs drainage COMPARISON: TECHNIQUE: Through an sign language interpreter, the risks and benefits were explained to the patient and consent obtained. The patient was placed supine on the CT scanner and images of the pelvis performed. A right trans gluteal approach was selected. There is a 6 cm abscess in the right pelvis adjacent to the rectosigmoid colon. Conscious sedation monitoring were provided throughout the procedure by a nurse. The skin and soft tissues were anesthetized 1 percent xylocaine. A 19 gauge thin-walled needle was advanced into the 6 cm pelvic abscess. 4 cc of purulent white fluid was aspirated. A microbiology specimen was sent. A 0.035 guidewire was coiled within the collection. Sequential dilatation was performed with subsequent placement of a 12 Bhutanese pigtail drain. 60 cc of purulent fluid was aspirated. The cavity was lavaged with normal saline. Post drainage images were performed which demonstrated no significant residual fluid. The tube was flushed and secured. The patient tolerated the procedure well FINDINGS: IMPRESSION: CT-guided trans gluteal pelvic abscess drainage as described above
--- NOTE | 2018-09-15 00:11 | CON ---
DATE: 09/14/2018 CARDIOLOGY CONSULTATION HISTORY OF PRESENT ILLNESS: The patient is a 68-year-old woman from [facility] who came off the cruise ship with abdominal pain with nausea. She was found to be have peritonitis with a possible abscess in her abdomen. Because of potential surgery, I was asked to see her for cardiac evaluation. 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 She has no previous cardiac history. She does suffer from hypertension and is on medications. She denies exertional shortness of breath. Denies exertional chest pain. No previous cardiac history in the past. SOCIAL HISTORY: The patient does not smoke. REVIEW OF SYSTEMS: A 14-point review of systems revealed no cardiac issues. PHYSICAL EXAMINATION: VITAL SIGNS: Stable. NECK: Negative JVD. LUNGS: Without rales. HEART: With S1 and S2. EXTREMITIES: Without edema. LABORATORY DATA: EKG shows no acute changes. Laboratories were reviewed. IMPRESSION: 1. Peritonitis 2. Abdominal abscess. 3. Sepsis. 4. Hypertension. PLAN: Given these findings, there are no active cardiac issues. If the patient is planned for surgery, we will obtain an echocardiogram to evaluate her LV function. Theo Maxwell MD
[2018-09-15] MEDS: Piperacill/Tazo 4.5gm in NS 4.5 GM/100 ML BAG IVPB SCH ×3 (06:25→22:22)
[2018-09-15] MEDS: metroNIDAZOLE IV 500 mg/100 ml 500 MG/100 ML BAG IVPB SCH ×3 (06:27→22:23)
[2018-09-15 07:05] LABS: ALBUMIN 2.8 g/dL (3.0-4.8); ALT/SGPT 27 U/L (7-56); AST/SGOT 24 U/L (14-36); BLOOD UREA NITROGEN 11 mg/dL (7-21); CALCIUM 8.3 mg/dL (8.4-10.5); GFR NON-AFRICAN AMERICAN > 60
[2018-09-15 07:13] LABS: MEAN CELL VOLUME 96.2 fl (80.0-105.0); MEAN CORPUSCULAR HEMOGLOBIN 31.9 pg (25.0-35.0); MEAN CORPUSCULAR HGB CONC 33.1 g/dl (31.0-37.0); MEAN PLATELET VOLUME 9.7 fl (7.0-11.0); RBC 3.45 10^6/uL (3.5-6.1)
--- NOTE | 2018-09-15 08:50 | CP.PCM.PN ---
<AbilioMaria Elena - Last Filed: 09/15/18 08:47> Subjective - Date & Time of Evaluation Date of Evaluation: 09/15/18 Time of Evaluation: 08:47 - Subjective Subjective: Gastroenterology Fellow/PGY6 Progress Note Patient notes improving abdominal pain and mild soreness at drainage catheter insertion site. Tolerated ice chips. No bowel movement yesterday. A 12-point review of systems negative except for as above. Objective - Vital Signs/Intake and Output Vital Signs (last 24 hours): Temp Pulse Resp BP Pulse Ox 99 F 91 H 18 143/75 96 09/15/18 06:00 09/15/18 06:00 09/15/18 06:00 09/15/18 06:00 09/15/18 06:00 - Medications Medications: Current Medications Acetaminophen (Tylenol 325mg Tab) 650 mg PO Q6H PRN PRN Reason: Fever >100.4 F Last Admin: 09/13/18 16:07 Dose: 650 mg Amlodipine Besylate (Norvasc) 5 mg PO DAILY [facility] Last Admin: 09/14/18 17:06 Dose: 5 mg Home Med (Home Med) 1 unit PO DAILY [facility] Last Admin: 09/14/18 18:45 Dose: 1 unit Hydromorphone HCl (Dilaudid) 0.5 mg IVP Q4H PRN PRN Reason: Pain, severe (8-10) Last Admin: 09/14/18 22:08 Dose: 0.5 mg Metronidazole (Flagyl) 500 mg in 100 mls @ 100 mls/hr IVPB Q8 [facility]; Protocol Last Admin: 09/15/18 06:27 Dose: 100 mls/hr Piperacillin Sod/Tazobactam Sod (Zosyn 4.5 Gm In Ns 100ml) 4.5 gm in 100 mls @ 25 mls/hr IVPB Q8 [facility]; Protocol Stop: 09/22/18 15:15 Last Admin: 09/15/18 06:25 Dose: 25 mls/hr Potassium Chloride (Potassium Chloride 10 Meq/100 Ml) 10 meq in 100 mls @ 50 mls/hr IVPB Q2H [facility] Stop: 09/15/18 12:29 Potassium Chloride/Dextrose/Sod Cl (Potassium Chl 20 Meq In D5-1/2ns) 1,000 mls @ 110 mls/hr IV .Q9H6M [facility] Morphine Sulfate (Morphine) 2 mg IVP Q4H PRN PRN Reason: Pain, moderate (4-7) Ondansetron HCl (Zofran Inj) 4 mg IVP Q4H PRN PRN Reason: Nausea/Vomiting Last Admin: 09/15/18 02:20 Dose: 4 mg Oxycodone/Acetaminophen (Percocet 5/325 Mg Tab) 1 tab PO Q4H PRN PRN Reason: Pain, moderate (4-7) Stop: 09/17/18 14:00 - Labs Labs: 09/15/18 06:30 09/15/18 06:30 PT 13.8 SECONDS (9.4-12.5) H 09/13/18 02:26 INR 1.21 09/13/18 02:26 APTT 26.3 Seconds (25.1-36.5) 09/13/18 02:26 - Constitutional Appears: Non-toxic, No Acute Distress - Head Exam Head Exam: ATRAUMATIC, NORMOCEPHALIC - Eye Exam Eye Exam: EOMI, PERRL. absent: Scleral icterus Pupil Exam: PERRL. absent: Miosis, Mydriatic - ENT Exam ENT Exam: Mucous Membranes Moist, Normal Oropharynx - Neck Exam Neck Exam: Full ROM, Normal Inspection - Respiratory Exam Respiratory Exam: Clear to Ausculation Bilateral. absent: Rales, Rhonchi, Wheezes - Cardiovascular Exam Cardiovascular Exam: RRR, +S1, +S2. absent: Gallop, Rubs - GI/Abdominal Exam GI & Abdominal Exam: Soft, Tenderness, Normal Bowel Sounds. absent: Distended, Firm, Guarding, Rigid, Organomegaly Additional comments: B/L LQ tenderness to palpation - Extremities Exam Extremities Exam: Normal Inspection. absent: Pedal Edema - Neurological Exam Neurological Exam: Alert, Awake - Psychiatric Exam Psychiatric exam: Normal Affect, Normal Mood - Skin Skin Exam: Dry, Intact, Normal Color, Warm Assessment and Plan - Assessment and Plan (Free Text) Assessment: 68 year old female with PMH of HTN, HLD, and Right Breast Cancer s/p chemoradiation and lumpectomy (1995) and intestinal resection in 1995 presenting with abdominal pain. Active treatment of sepsis 2/2 to severe complicated rectosigmoid diverticulitis with sigmoid 3.5x5cm abscess and moderate pneumoperitoneum noted on CT A/P IV contrast. Admits to EGD/colonoscopy every five years in [place] since colonic resection 1995. Last endoscopic evaluation two years ago endorsed to be normal with prior history of polyps. P Plan: -POD1 (09/14) abscess aspiration and drainage catheter placement -follow up microbiology and antibiotic sensitivities -surgery managing- follow up recommendations -09/13 on Zosyn and Flagyl -continue IVFs -supportive care- anti-emetics, pain control -close monitoring of clinical status -thank you for opportunity to participate in the caree of this patient. Please contact if any questions/concerns <Ilia Fallon - Last Filed: 09/15/18 09:00> Objective - Vital Signs/Intake and Output Vital Signs (last 24 hours): Temp Pulse Resp BP Pulse Ox 99 F 91 H 18 143/75 96 09/15/18 06:00 09/15/18 06:00 09/15/18 06:00 09/15/18 06:00 09/15/18 06:00 - Medications Medications: Current Medications Acetaminophen (Tylenol 325mg Tab) 650 mg PO Q6H PRN PRN Reason: Fever >100.4 F Last Admin: 09/13/18 16:07 Dose: 650 mg Amlodipine Besylate (Norvasc) 5 mg PO DAILY [facility] Last Admin: 09/14/18 17:06 Dose: 5 mg Home Med (Home Med) 1 unit PO DAILY [facility] Last Admin: 09/14/18 18:45 Dose: 1 unit Hydromorphone HCl (Dilaudid) 0.5 mg IVP Q4H PRN PRN Reason: Pain, severe (8-10) Last Admin: 09/14/18 22:08 Dose: 0.5 mg Metronidazole (Flagyl) 500 mg in 100 mls @ 100 mls/hr IVPB Q8 [facility]; Protocol Last Admin: 09/15/18 06:27 Dose: 100 mls/hr Piperacillin Sod/Tazobactam Sod (Zosyn 4.5 Gm In Ns 100ml) 4.5 gm in 100 mls @ 25 mls/hr IVPB Q8 [facility]; Protocol Stop: 09/22/18 15:15 Last Admin: 09/15/18 06:25 Dose: 25 mls/hr Potassium Chloride (Potassium Chloride 10 Meq/100 Ml) 10 meq in 100 mls @ 50 mls/hr IVPB Q2H [facility] Stop: 09/15/18 12:29 Potassium Chloride/Dextrose/Sod Cl (Potassium Chl 20 Meq In D5-1/2ns) 1,000 mls @ 110 mls/hr IV .Q9H6M [facility] Morphine Sulfate (Morphine) 2 mg IVP Q4H PRN PRN Reason: Pain, moderate (4-7) Ondansetron HCl (Zofran Inj) 4 mg IVP Q4H PRN PRN Reason: Nausea/Vomiting Last Admin: 09/15/18 02:20 Dose: 4 mg Oxycodone/Acetaminophen (Percocet 5/325 Mg Tab) 1 tab PO Q4H PRN PRN Reason: Pain, moderate (4-7) Stop: 09/17/18 14:00 - Labs Labs: 09/15/18 06:30 09/15/18 06:30 PT 13.8 SECONDS (9.4-12.5) H 09/13/18 02:26 INR 1.21 09/13/18 02:26 APTT 26.3 Seconds (25.1-36.5) 09/13/18 02:26 Attending/Attestation - Attestation I have fully participated in the care of the patient.: Yes I have reviewed all pertinent clinical information, including history, physical exam and plan: Yes Notes (Text): 09/15/18 08:58 Patient s/p IR guided abscess drainage yesterday. Reports ongoing abdominal discomfort, mainly at drainage site, otherwise denies nausea, vomiting. Review of vitals from today shows low grade temperature and tachycardia. HTN Hyperlipidemia History of breast cancer Abdominal pain - acute diverticulitis complicated by modesta-colonic abscess and abdominal free air - NPO - Continue with antibiotic therapy - Await sensitivities and culture results from abscess drainage - Follow up surgical recommendations - No further planned GI intervention, will sign off case. Please reconsult as necessary, thank you.
--- NOTE | 2018-09-15 10:46 | PN ---
DATE: 09/15/2018 SUBJECTIVE: I saw her resting comfortably in bed. She had an Interventional Radiology approach yesterday, and did the aspiration of the abscess versus a drain in her place, which was draining pus, and she is on Dilaudid for pain, and the pain is much better. Flagyl IV, morphine for pain also, Norvasc, Percocet, potassium replacement, Tylenol, Zofran and Zosyn IV. She is doing better than yesterday. Her face looks better. PHYSICAL EXAMINATION: VITAL SIGNS: The temperature was 100.9 last night, it is down to 99. She has a 91 pulse, 143/75 blood pressure, 18 respiratory rate, and 96% on O2 sat. HEENT: Head is atraumatic, normocephalic. GENERAL: She looks less toxic. She looks more comfortable. HEART: Regular rate. LUNGS: Decreased breath sounds. ABDOMEN: Abdomen is a little bit softer, not distended. There is a percutaneous drain draining pus into the abscess. There are a couple of bowel sounds. EXTREMITIES: Have no edema. LABORATORY DATA: She has a 14 white count better than 16, but it was 13.6 yesterday, still up. Hemoglobin is 11, hematocrit 33.2, platelets of 190. She has 139 sodium, potassium 3.2, it was 2.9 yesterday, still replacing the potassium. BUN 11, creatinine 0.5, GFR is greater than 60, sugar is 99, calcium is 8.3, total bili is 0.8. AST is 24, ALT is 27, alk phos 101, total protein is 5.6. She has consults with GI, Infectious Disease, Cardiology, Dr. Theo Herr for drainage. She is currently n.p.o. It is very possible GI might increase her diet to liquids, they mentioned that earlier. We will see how she progresses. We will check her labs tomorrow. I am happy that this abscess is draining right now, and we will check her labs tomorrow. [place] severe abdominal pain. She has an abscess and diverticulitis. Bethel Vides DO [facility] # [id number]
[2018-09-15] MEDS: Potassium Ch 20mEq in D5-1/2NS 1,000 ML IV SCH ×2 (11:51→16:51)
[2018-09-15] MEDS: [UNRECOGNIZED DRUG - OTHER] PO SCH (11:55)
[2018-09-15] MEDS: BISOPROLOL PO SCH (11:55)
--- NOTE | 2018-09-15 15:24 | CP.PCM.PN ---
Subjective - Date & Time of Evaluation Date of Evaluation: 09/15/18 Time of Evaluation: 07:00 - Subjective Subjective: Patient seen and examined. Tmax of 100.9. Patient denies n/v. States she feels better since admission. 60cc of purulent drainage from IR drainage. Objective - Vital Signs/Intake and Output Vital Signs (last 24 hours): Temp Pulse Resp BP Pulse Ox 99 F 91 H 18 143/75 96 09/15/18 06:00 09/15/18 11:54 09/15/18 06:00 09/15/18 11:54 09/15/18 06:00 - Medications Medications: Current Medications Acetaminophen (Tylenol 325mg Tab) 650 mg PO Q6H PRN PRN Reason: Fever >100.4 F Last Admin: 09/13/18 16:07 Dose: 650 mg Amlodipine Besylate (Norvasc) 5 mg PO DAILY [facility] Last Admin: 09/15/18 11:54 Dose: 5 mg Home Med (Home Med) 1 unit PO DAILY [facility] Last Admin: 09/15/18 11:55 Dose: 1 unit Hydromorphone HCl (Dilaudid) 0.5 mg IVP Q4H PRN PRN Reason: Pain, severe (8-10) Last Admin: 09/14/18 22:08 Dose: 0.5 mg Metronidazole (Flagyl) 500 mg in 100 mls @ 100 mls/hr IVPB Q8 [facility]; Protocol Last Admin: 09/15/18 14:19 Dose: 100 mls/hr Piperacillin Sod/Tazobactam Sod (Zosyn 4.5 Gm In Ns 100ml) 4.5 gm in 100 mls @ 25 mls/hr IVPB Q8 [facility]; Protocol Stop: 09/22/18 15:15 Last Admin: 09/15/18 06:25 Dose: 25 mls/hr Potassium Chloride/Dextrose/Sod Cl (Potassium Chl 20 Meq In D5-1/2ns) 1,000 mls @ 110 mls/hr IV .Q9H6M [facility] Last Admin: 09/15/18 11:51 Dose: 110 mls/hr Morphine Sulfate (Morphine) 2 mg IVP Q4H PRN PRN Reason: Pain, moderate (4-7) Ondansetron HCl (Zofran Inj) 4 mg IVP Q4H PRN PRN Reason: Nausea/Vomiting Last Admin: 09/15/18 02:20 Dose: 4 mg Oxycodone/Acetaminophen (Percocet 5/325 Mg Tab) 1 tab PO Q4H PRN PRN Reason: Pain, moderate (4-7) Stop: 09/17/18 14:00 - Labs Labs: 09/15/18 06:30 09/15/18 06:30 PT 13.8 SECONDS (9.4-12.5) H 09/13/18 02:26 INR 1.21 09/13/18 02:26 APTT 26.3 Seconds (25.1-36.5) 09/13/18 02:26 - Constitutional Appears: No Acute Distress - Head Exam Head Exam: NORMOCEPHALIC - Eye Exam Eye Exam: EOMI, Normal appearance - ENT Exam ENT Exam: Mucous Membranes Moist - Respiratory Exam Respiratory Exam: NORMAL BREATHING PATTERN - Cardiovascular Exam Cardiovascular Exam: +S1, +S2 - GI/Abdominal Exam GI & Abdominal Exam: Soft, Tenderness, Rebound. absent: Distended, Firm, Guarding, Rigid - Neurological Exam Neurological Exam: Alert, Awake, Oriented x3 - Psychiatric Exam Psychiatric exam: Normal Mood - Skin Skin Exam: Dry, Intact, Warm Assessment and Plan - Assessment and Plan (Free Text) Assessment: 68F with diverticulitis and pelvic abscess s/p IR drainage Plan: -NPO w/ sips and chips -IVF -ABx -Analgesics prn -Anti-emetics prn -Monitor drain output -DVT ppx -No acute surgical intervention at this present time -Will follow -D/w Dr. Margarito Carrillo PGY3
--- NOTE | 2018-09-15 15:56 | CP.PCM.PN ---
Subjective - Date & Time of Evaluation Date of Evaluation: 09/15/18 Time of Evaluation: 10:50 - Subjective Subjective: Had CT-guided drainage yesterday, no fevers, no increased abdominal pain. Objective - Vital Signs/Intake and Output Vital Signs (last 24 hours): Temp Pulse Resp BP Pulse Ox 98.9 F 112 H 14 180/91 H 97 09/14/18 14:50 09/14/18 17:06 09/14/18 14:50 09/14/18 17:06 09/14/18 14:50 Intake and Output: 09/14/18 09/15/18 18:59 06:59 Intake Total 100 Balance 100 - Medications Medications: Current Medications Acetaminophen (Tylenol 325mg Tab) 650 mg PO Q6H PRN PRN Reason: Fever >100.4 F Last Admin: 09/13/18 16:07 Dose: 650 mg Amlodipine Besylate (Norvasc) 5 mg PO DAILY [facility] Last Admin: 09/14/18 17:06 Dose: 5 mg Home Med (Home Med) 1 unit PO DAILY [facility] Last Admin: 09/14/18 18:45 Dose: 1 unit Hydromorphone HCl (Dilaudid) 0.5 mg IVP Q4H PRN PRN Reason: Pain, severe (8-10) Last Admin: 09/14/18 06:13 Dose: 0.5 mg Metronidazole (Flagyl) 500 mg in 100 mls @ 100 mls/hr IVPB Q8 [facility]; Protocol Last Admin: 09/14/18 17:08 Dose: 100 mls/hr Lactated Ringer's (Lactated Ringer's) 1,000 mls @ 110 mls/hr IV .Q9H6M [facility] Last Admin: 09/14/18 18:46 Dose: 110 mls/hr Piperacillin Sod/Tazobactam Sod (Zosyn 4.5 Gm In Ns 100ml) 4.5 gm in 100 mls @ 25 mls/hr IVPB Q8 [facility]; Protocol Stop: 09/22/18 15:15 Last Admin: 09/14/18 17:06 Dose: 25 mls/hr Potassium Chloride (Potassium Chloride 10 Meq/100 Ml) 10 meq in 100 mls @ 50 mls/hr IVPB ONCE ONE Stop: 09/14/18 19:39 Morphine Sulfate (Morphine) 2 mg IVP Q4H PRN PRN Reason: Pain, moderate (4-7) Ondansetron HCl (Zofran Inj) 4 mg IVP Q4H PRN PRN Reason: Nausea/Vomiting Oxycodone/Acetaminophen (Percocet 5/325 Mg Tab) 1 tab PO Q4H PRN PRN Reason: Pain, moderate (4-7) Stop: 09/17/18 14:00 - Labs Labs: 09/14/18 06:30 09/14/18 06:30 PT 13.8 SECONDS (9.4-12.5) H 09/13/18 02:26 INR 1.21 09/13/18 02:26 APTT 26.3 Seconds (25.1-36.5) 09/13/18 02:26 - Constitutional Appears: Chronically Ill - Head Exam Head Exam: NORMAL INSPECTION - Respiratory Exam Respiratory Exam: Decreased Breath Sounds - Cardiovascular Exam Cardiovascular Exam: +S1, +S2 - GI/Abdominal Exam GI & Abdominal Exam: Soft. absent: Tenderness Assessment and Plan - Assessment and Plan (Free Text) Plan: Assessment Sepsis from severe sigmoid diverticulitis with diverticular abscess S/P R-guided drainage POD #1 history of breast cancer S/P right breast partial mastectomy HTN dyslipidemia history of cecal volvulus S/P bowel resection Plan continue Zosyn - follow up cultures from the abscess will continue to monitor clinically
--- NOTE | 2018-09-15 16:11 | PN ---
DATE: 09/15/2018 CARDIOLOGY FOLLOWUP SUBJECTIVE: The patient seems to be comfortable in bed post percutaneous drainage. PHYSICAL EXAMINATION: VITAL SIGNS: Blood pressure is 158/81, heart rate is in the 80s. NECK: Negative JVD. LUNGS: Without rales. HEART: Reveals S1 and S2. EXTREMITIES: Without edema. LABORATORY DATA: Hemoglobin is 11. Chemistries: BUN and creatinine unremarkable. Potassium is 3.2. IMPRESSION: 1. Peritonitis. 2. Status post percutaneous drainage. 3. Hypertension. 4. Hypokalemia. PLAN: Given these findings, if the patient tolerates her p.o. medications, we will continue on her current medications. If she is unable to tolerate, we will switch to clonidine patch. We will order an echocardiogram to evaluate LV function. I communicated with the patient through a trades helper. She is agreeable for an echocardiogram. Theo Maxwell MD
[2018-09-15] MEDS: HYDROmorphone 0.5 mg/0.5 ml ISec IVP PRN (22:31)
[2018-09-16] MEDS: Potassium Ch 20mEq in D5-1/2NS 1,000 ML IV SCH ×2 (02:08→11:41)
[2018-09-16] MEDS: metroNIDAZOLE IV 500 mg/100 ml 500 MG/100 ML BAG IVPB SCH ×3 (05:22→21:18)
[2018-09-16] MEDS: Piperacill/Tazo 4.5gm in NS 4.5 GM/100 ML BAG IVPB SCH ×3 (05:24→22:35)
[2018-09-16 06:44] LABS: ALBUMIN 2.6 g/dL (3.0-4.8); ALT/SGPT 29 U/L (7-56); AST/SGOT 23 U/L (14-36); BLOOD UREA NITROGEN 9 mg/dL (7-21); CALCIUM 7.5 mg/dL (8.4-10.5); GFR NON-AFRICAN AMERICAN > 60
[2018-09-16 07:07] LABS: HEMOGLOBIN 11.6 g/dL (12.0-16.0); MEAN CELL VOLUME 95.6 fl (80.0-105.0); MEAN CORPUSCULAR HEMOGLOBIN 31.9 pg (25.0-35.0); MEAN CORPUSCULAR HGB CONC 33.3 g/dl (31.0-37.0); MEAN PLATELET VOLUME 9.1 fl (7.0-11.0); RBC 3.64 10^6/uL (3.5-6.1); RED CELL DISTRIBUTION WIDTH 12.9 % (11.5-14.5); WHITE BLOOD COUNT 9.9 10^3/uL (4.5-11.0)
[2018-09-16] MEDS: [UNRECOGNIZED DRUG - OTHER] PO SCH (09:17)
[2018-09-16] MEDS: BISOPROLOL PO SCH (09:17)
--- NOTE | 2018-09-16 12:06 | CP.PCM.PN ---
Subjective - Date & Time of Evaluation Date of Evaluation: 09/16/18 Time of Evaluation: 09:00 - Subjective Subjective: General Surgery Progress Note for Dr. Soliz covering for Dr. Pimentel 68F, seen and evaluated at bedside this morning. No acute events overnight. Patient states she feels "average" but better than upon admission. Drain output 30cc serous fluid overnight. Few episodes of vomiting yesterday otherwise no nausea. BMx3 and passing flatus. Admits to diarrhea. Denies f/c, SOB, CP, or urinary symptoms. Objective - Vital Signs/Intake and Output Vital Signs (last 24 hours): Temp Pulse Resp BP Pulse Ox 98 F 80 20 158/81 H 97 09/16/18 06:00 09/16/18 09:17 09/16/18 06:00 09/16/18 09:17 09/16/18 06:00 Intake and Output: 09/16/18 09/16/18 06:59 18:59 Intake Total 3240 Balance 3240 - Medications Medications: Current Medications Acetaminophen (Tylenol 325mg Tab) 650 mg PO Q6H PRN PRN Reason: Fever >100.4 F Last Admin: 09/13/18 16:07 Dose: 650 mg Amlodipine Besylate (Norvasc) 5 mg PO DAILY [facility] Last Admin: 09/16/18 09:17 Dose: 5 mg Heparin Sodium (Porcine) (Heparin) 5,000 units SC Q8 [facility]; Protocol Last Admin: 09/16/18 05:28 Dose: 5,000 units Home Med (Home Med) 1 unit PO DAILY [facility] Last Admin: 09/16/18 09:17 Dose: 1 unit Hydromorphone HCl (Dilaudid) 0.5 mg IVP Q4H PRN PRN Reason: Pain, severe (8-10) Last Admin: 09/15/18 22:31 Dose: 0.5 mg Metronidazole (Flagyl) 500 mg in 100 mls @ 100 mls/hr IVPB Q8 [facility]; Protocol Last Admin: 09/16/18 05:22 Dose: 100 mls/hr Piperacillin Sod/Tazobactam Sod (Zosyn 4.5 Gm In Ns 100ml) 4.5 gm in 100 mls @ 25 mls/hr IVPB Q8 [facility]; Protocol Stop: 09/22/18 15:15 Last Admin: 09/16/18 05:24 Dose: 25 mls/hr Potassium Chloride/Dextrose/Sod Cl (Potassium Chl 20 Meq In D5-1/2ns) 1,000 mls @ 110 mls/hr IV .Q9H6M [facility] Last Admin: 09/16/18 11:41 Dose: 110 mls/hr Potassium Chloride (Potassium Chloride 10 Meq/100 Ml) 10 meq in 100 mls @ 50 mls/hr IVPB Q2H [facility] Stop: 09/16/18 11:59 Last Admin: 09/16/18 11:42 Dose: 50 mls/hr Morphine Sulfate (Morphine) 2 mg IVP Q4H PRN PRN Reason: Pain, moderate (4-7) Ondansetron HCl (Zofran Inj) 4 mg IVP Q4H PRN PRN Reason: Nausea/Vomiting Last Admin: 09/16/18 11:58 Dose: 4 mg Oxycodone/Acetaminophen (Percocet 5/325 Mg Tab) 1 tab PO Q4H PRN PRN Reason: Pain, moderate (4-7) Stop: 09/17/18 14:00 - Labs Labs: 09/16/18 05:30 09/16/18 05:30 PT 13.8 SECONDS (9.4-12.5) H 09/13/18 02:26 INR 1.21 09/13/18 02:26 APTT 26.3 Seconds (25.1-36.5) 09/13/18 02:26 - Constitutional Appears: Well, Non-toxic, No Acute Distress - Head Exam Head Exam: ATRAUMATIC, NORMAL INSPECTION, NORMOCEPHALIC - Eye Exam Eye Exam: EOMI - ENT Exam ENT Exam: Mucous Membranes Dry - GI/Abdominal Exam GI & Abdominal Exam: Soft, Tenderness. absent: Distended Additional comments: drain site c/d/i - Neurological Exam Neurological Exam: Alert, Awake, Oriented x3 - Psychiatric Exam Psychiatric exam: Normal Affect, Normal Mood Assessment and Plan - Assessment and Plan (Free Text) Assessment: 68F w/ abscess diverticulitis s/p IR drainage POD2 Plan: Continue to monitor drain output Advanced diet to clears today Replete electrolytes as needed Analgesics and antiemetics PRN Continue IV antibiotics Continue IVF AM labs F/u cultures Will repeat CT Abd/Pel on 09/[address] Martínez Trinidad PGY1
[2018-09-16] MEDS ORDERED: Potassium Chloride 20 mEq ER Tab PO ONE (12:22)
--- NOTE | 2018-09-16 13:09 | PN ---
DATE: 09/16/2018 SUBJECTIVE: I saw her in bed this morning. I had a stove cleaner talk for us. She is still uncomfortable with abdominal pain. She is refusing to take the pain medication. She has a drain in place, which drained about 30 mL over the last shift of pus. Her belly is more distended today. She is not able to eat, no appetite, some nauseousness. She has Dilaudid, Flagyl IV, heparin, morphine, Norvasc, Percocet, potassium replacement, Tylenol, Zofran and Zosyn. PHYSICAL EXAMINATION: VITAL SIGNS: She has a 98 temperature, 83 pulse, 159/87 blood pressure, 20 respiratory rate, 97% O2 sat on room air. HEENT: Head is atraumatic, normocephalic. HEART: Regular rate. LUNGS: Decreased breath sounds, but clear. ABDOMEN: Mildly distended. No bowel sounds today. Little discomfort. No guarding, no rebound. It was better yesterday I thought. EXTREMITIES: No edema. LABORATORY DATA: She has a 9.9 white count, best it has been, it came down nicely; hemoglobin 11.6; hematocrit 34.8; platelets of 187. She has 135 sodium; potassium 3.1, I will replace potassium; BUN is 9; creatinine 0.4; GFR is greater than 60; sugar is 168; calcium 7.5. Total bili is 0.6, AST is 23, ALT is 29, alk phos 74, total protein is 5.2. ASSESSMENT/PLAN: She is having intestinal diverticulitis with an abscess with the drain and it is draining. She is uncomfortable with her abdomen. We will continue aggressive treatment and care, replace the potassium. I discussed at length, answered all her questions with the stove cleaner from [facility], and hopefully I eased her situation, got the white counts improve. We will continue with IV antibiotics and await for the belly to catch up to the white count. Bethel Vides DO
[2018-09-16] MEDS: Potassium Chl 40 mEq in D5-1/2 1,000 ML IV SCH ×2 (13:22→23:44)
--- NOTE | 2018-09-16 15:15 | CP.PCM.PN ---
Subjective - Date & Time of Evaluation Date of Evaluation: 09/16/18 Time of Evaluation: 10:40 - Subjective Subjective: Comfortable in bed but still having abdominal discomfort, no fevers, no nausea. Objective - Vital Signs/Intake and Output Vital Signs (last 24 hours): Temp Pulse Resp BP Pulse Ox 99.7 F H 84 20 158/81 H 93 L 09/15/18 14:00 09/15/18 14:00 09/15/18 14:00 09/15/18 14:00 09/15/18 14:00 - Medications Medications: Current Medications Acetaminophen (Tylenol 325mg Tab) 650 mg PO Q6H PRN PRN Reason: Fever >100.4 F Last Admin: 09/13/18 16:07 Dose: 650 mg Amlodipine Besylate (Norvasc) 5 mg PO DAILY [facility] Last Admin: 09/15/18 11:54 Dose: 5 mg Heparin Sodium (Porcine) (Heparin) 5,000 units SC Q8 [facility]; Protocol Home Med (Home Med) 1 unit PO DAILY [facility] Last Admin: 09/15/18 11:55 Dose: 1 unit Hydromorphone HCl (Dilaudid) 0.5 mg IVP Q4H PRN PRN Reason: Pain, severe (8-10) Last Admin: 09/14/18 22:08 Dose: 0.5 mg Metronidazole (Flagyl) 500 mg in 100 mls @ 100 mls/hr IVPB Q8 [facility]; Protocol Last Admin: 09/15/18 14:19 Dose: 100 mls/hr Piperacillin Sod/Tazobactam Sod (Zosyn 4.5 Gm In Ns 100ml) 4.5 gm in 100 mls @ 25 mls/hr IVPB Q8 [facility]; Protocol Stop: 09/22/18 15:15 Last Admin: 09/15/18 06:25 Dose: 25 mls/hr Potassium Chloride/Dextrose/Sod Cl (Potassium Chl 20 Meq In D5-1/2ns) 1,000 mls @ 110 mls/hr IV .Q9H6M [facility] Last Admin: 09/15/18 11:51 Dose: 110 mls/hr Morphine Sulfate (Morphine) 2 mg IVP Q4H PRN PRN Reason: Pain, moderate (4-7) Ondansetron HCl (Zofran Inj) 4 mg IVP Q4H PRN PRN Reason: Nausea/Vomiting Last Admin: 09/15/18 02:20 Dose: 4 mg Oxycodone/Acetaminophen (Percocet 5/325 Mg Tab) 1 tab PO Q4H PRN PRN Reason: Pain, moderate (4-7) Stop: 09/17/18 14:00 - Labs Labs: 09/15/18 06:30 09/15/18 06:30 PT 13.8 SECONDS (9.4-12.5) H 09/13/18 02:26 INR 1.21 09/13/18 02:26 APTT 26.3 Seconds (25.1-36.5) 09/13/18 02:26 - Constitutional Appears: Chronically Ill - Head Exam Head Exam: NORMAL INSPECTION - Respiratory Exam Respiratory Exam: Decreased Breath Sounds - Cardiovascular Exam Cardiovascular Exam: +S1, +S2 - GI/Abdominal Exam GI & Abdominal Exam: Soft. absent: Tenderness Additional comments: abdominal drain in place Assessment and Plan - Assessment and Plan (Free Text) Plan: Assessment Sepsis from severe sigmoid diverticulitis with diverticular abscess S/P R-guided drainage POD #2, showing gram positive cocci history of breast cancer S/P right breast partial mastectomy HTN dyslipidemia history of cecal volvulus S/P bowel resection Plan continue Zosyn - follow up final culture results from the abscess follow up further plans of surgery will continue to monitor clinically
--- NOTE | 2018-09-16 16:25 | PN ---
DATE: 09/16/2018 CARDIOLOGY FOLLOWUP HISTORY: The patient is in bed, no acute distress. PHYSICAL EXAMINATION: VITAL SIGNS: The patient is afebrile. Blood pressure is 156/80, heart rate is in the 80s. NECK: Negative JVD. LUNGS: Without rales. HEART: Reveals S1 and S2. EXTREMITIES: Without edema. LABORATORY DATA: White count is down to 9, hemoglobin is 11.6. Chemistries: BUN and creatinine are unremarkable. Potassium is 3.1 and replacement has been ordered. Preliminary echocardiogram reveals an ejection fraction between 45 and 50%. No aortic valve stenosis noted. IMPRESSION: 1. Abdominal abscess. 2. Hypertension. 3. Mild left ventricular hypertrophy. 4. Mild cardiomyopathy consistent with hypertensive cardiomyopathy. 5. Hypokalemia. PLAN: Given these findings, we will accept the patient's blood pressure at this time. She will need that adjusted once her septic situation is improved. Theo Maxwell MD
[2018-09-16] MEDS: Oxycodone/Acetaminophen 5/325 mg Tab PO PRN (22:01)
[2018-09-17] MEDS: metroNIDAZOLE IV 500 mg/100 ml 500 MG/100 ML BAG IVPB SCH (05:57)
[2018-09-17] MEDS: Piperacill/Tazo 4.5gm in NS 4.5 GM/100 ML BAG IVPB SCH ×3 (05:58→23:13)
[2018-09-17] MEDS: Oxycodone/Acetaminophen 5/325 mg Tab PO PRN ×2 (07:12→11:16)
[2018-09-17 07:40] LABS: MEAN CELL VOLUME 95.2 fl (80.0-105.0); MEAN CORPUSCULAR HEMOGLOBIN 32.2 pg (25.0-35.0); MEAN CORPUSCULAR HGB CONC 33.8 g/dl (31.0-37.0); MEAN PLATELET VOLUME 9.2 fl (7.0-11.0); RBC 3.73 10^6/uL (3.5-6.1); WHITE BLOOD COUNT 9.8 10^3/uL (4.5-11.0)
[2018-09-17 08:00] LABS: ALB/GLOB RATIO 0.9 (1.1-1.8); ALBUMIN 2.6 g/dL (3.0-4.8); ALT/SGPT 31 U/L (7-56); AST/SGOT 30 U/L (14-36); BLOOD UREA NITROGEN 7 mg/dL (7-21); CALCIUM 7.7 mg/dL (8.4-10.5); GFR NON-AFRICAN AMERICAN > 60
--- NOTE | 2018-09-17 08:00 | CP.PCM.PN ---
Subjective - Date & Time of Evaluation Date of Evaluation: 09/17/18 Time of Evaluation: 07:57 - Subjective Subjective: Mitra Juarez, PGY-1, Surgery Progress Note for Dr. Soliz covering for Dr. Pimentel Patient seen and examined at bedside. Patient denies any acute overnight events. Patient reports increased abdominal pain at 6/10 from 4/10 yesterday. Patient denies nausea, vomiting, but has been able to tolerate liquids. Patient has continued to have nonbloody diarrhea but no solid stools. Patient denies fever and chills. Objective - Vital Signs/Intake and Output Vital Signs (last 24 hours): Temp Pulse Resp BP Pulse Ox 98.0 F 80 19 152/80 H 93 L 09/16/18 22:00 09/16/18 22:00 09/16/18 22:00 09/16/18 22:00 09/16/18 22:00 - Medications Medications: Current Medications Acetaminophen (Tylenol 325mg Tab) 650 mg PO Q6H PRN PRN Reason: Fever >100.4 F Last Admin: 09/13/18 16:07 Dose: 650 mg Amlodipine Besylate (Norvasc) 5 mg PO DAILY [facility] Last Admin: 09/16/18 09:17 Dose: 5 mg Heparin Sodium (Porcine) (Heparin) 5,000 units SC Q8 [facility]; Protocol Last Admin: 09/17/18 05:58 Dose: 5,000 units Home Med (Home Med) 1 unit PO DAILY [facility] Last Admin: 09/16/18 09:17 Dose: 1 unit Hydromorphone HCl (Dilaudid) 0.5 mg IVP Q4H PRN PRN Reason: Pain, severe (8-10) Last Admin: 09/15/18 22:31 Dose: 0.5 mg Metronidazole (Flagyl) 500 mg in 100 mls @ 100 mls/hr IVPB Q8 [facility]; Protocol Last Admin: 09/17/18 05:57 Dose: 100 mls/hr Piperacillin Sod/Tazobactam Sod (Zosyn 4.5 Gm In Ns 100ml) 4.5 gm in 100 mls @ 25 mls/hr IVPB Q8 [facility]; Protocol Stop: 09/22/18 15:15 Last Admin: 09/17/18 05:58 Dose: 25 mls/hr Potassium Chloride/Dextrose/Sod Cl (Potassium Chl 40 Meq In D5-1/2ns) 1,000 mls @ 110 mls/hr IV .Q9H6M [facility] Last Admin: 09/16/18 23:44 Dose: Not Given Morphine Sulfate (Morphine) 2 mg IVP Q4H PRN PRN Reason: Pain, moderate (4-7) Ondansetron HCl (Zofran Inj) 4 mg IVP Q4H PRN PRN Reason: Nausea/Vomiting Last Admin: 09/16/18 11:58 Dose: 4 mg Oxycodone/Acetaminophen (Percocet 5/325 Mg Tab) 1 tab PO Q4H PRN PRN Reason: Pain, moderate (4-7) Stop: 09/17/18 14:00 Last Admin: 09/17/18 07:12 Dose: 1 tab - Labs Labs: 09/17/18 07:00 09/16/18 05:30 PT 13.8 SECONDS (9.4-12.5) H 09/13/18 02:26 INR 1.21 09/13/18 02:26 APTT 26.3 Seconds (25.1-36.5) 09/13/18 02:26 - Constitutional Appears: Well, Non-toxic, No Acute Distress - Head Exam Head Exam: ATRAUMATIC, NORMAL INSPECTION, NORMOCEPHALIC - Eye Exam Eye Exam: EOMI Pupil Exam: PERRL - Neck Exam Neck Exam: Full ROM - Respiratory Exam Respiratory Exam: Clear to Ausculation Bilateral, NORMAL BREATHING PATTERN - Cardiovascular Exam Cardiovascular Exam: REGULAR RHYTHM - GI/Abdominal Exam GI & Abdominal Exam: Soft, Tenderness, Normal Bowel Sounds Additional comments: Drain intact, skin nonerythematous and not warm around drain - Extremities Exam Extremities Exam: Full ROM - Neurological Exam Neurological Exam: Alert, Awake, CN II-XII Intact, Oriented x3 Assessment and Plan - Assessment and Plan (Free Text) Assessment: 68 year old female with past medical history of hypertension and breast cancer presents with abdominal pain. Patient was found to have diverticulitis with phlegmon and free air on abdominal CT. Plan: Continue with antibiotics as per ID. Repeat Abdominal CT with PO contrast on 09/18. Continue pain regimen and monitor pain control. OOB Replete electrolytes as necessary. DVT prophylaxis with heparin and GI prophylaxis with protonix. Will discuss plan with Dr. Soliz covering for Dr. Pimentel.
[2018-09-17] MEDS ORDERED: Potassium Chloride 20 mEq ER Tab PO ONE ×3 (08:36→11:00)
[2018-09-17] MEDS ORDERED: Potassium Phosphate 30 MMOLE in Dextrose 5% In Water 250 ML IVPB ONE (09:05)
[2018-09-17] MEDS: [UNRECOGNIZED DRUG - OTHER] PO SCH (11:17)
[2018-09-17] MEDS: BISOPROLOL PO SCH (11:17)
--- NOTE | 2018-09-17 12:49 | CP.PCM.PN ---
Subjective - Date & Time of Evaluation Date of Evaluation: 09/17/18 Time of Evaluation: 10:40 - Subjective Subjective: Patient is feeling a little better today, no fevers, not in distress. Less abdominal pain. Objective - Vital Signs/Intake and Output Vital Signs (last 24 hours): Temp Pulse Resp BP Pulse Ox 98 F 80 20 158/81 H 97 09/16/18 06:00 09/16/18 09:17 09/16/18 06:00 09/16/18 09:17 09/16/18 06:00 Intake and Output: 09/16/18 09/16/18 06:59 18:59 Intake Total 3240 Balance 3240 - Medications Medications: Current Medications Acetaminophen (Tylenol 325mg Tab) 650 mg PO Q6H PRN PRN Reason: Fever >100.4 F Last Admin: 09/13/18 16:07 Dose: 650 mg Amlodipine Besylate (Norvasc) 5 mg PO DAILY [facility] Last Admin: 09/16/18 09:17 Dose: 5 mg Heparin Sodium (Porcine) (Heparin) 5,000 units SC Q8 [facility]; Protocol Last Admin: 09/16/18 13:20 Dose: 5,000 units Home Med (Home Med) 1 unit PO DAILY [facility] Last Admin: 09/16/18 09:17 Dose: 1 unit Hydromorphone HCl (Dilaudid) 0.5 mg IVP Q4H PRN PRN Reason: Pain, severe (8-10) Last Admin: 09/15/18 22:31 Dose: 0.5 mg Metronidazole (Flagyl) 500 mg in 100 mls @ 100 mls/hr IVPB Q8 [facility]; Protocol Last Admin: 09/16/18 13:20 Dose: 100 mls/hr Piperacillin Sod/Tazobactam Sod (Zosyn 4.5 Gm In Ns 100ml) 4.5 gm in 100 mls @ 25 mls/hr IVPB Q8 [facility]; Protocol Stop: 09/22/18 15:15 Last Admin: 09/16/18 14:54 Dose: 25 mls/hr Potassium Chloride/Dextrose/Sod Cl (Potassium Chl 40 Meq In D5-1/2ns) 1,000 mls @ 110 mls/hr IV .Q9H6M [facility] Last Admin: 09/16/18 13:22 Dose: 110 mls/hr Morphine Sulfate (Morphine) 2 mg IVP Q4H PRN PRN Reason: Pain, moderate (4-7) Ondansetron HCl (Zofran Inj) 4 mg IVP Q4H PRN PRN Reason: Nausea/Vomiting Last Admin: 09/16/18 11:58 Dose: 4 mg Oxycodone/Acetaminophen (Percocet 5/325 Mg Tab) 1 tab PO Q4H PRN PRN Reason: Pain, moderate (4-7) Stop: 09/17/18 14:00 - Labs Labs: 09/16/18 05:30 09/16/18 05:30 PT 13.8 SECONDS (9.4-12.5) H 09/13/18 02:26 INR 1.21 09/13/18 02:26 APTT 26.3 Seconds (25.1-36.5) 09/13/18 02:26 - Constitutional Appears: Non-toxic, No Acute Distress - Head Exam Head Exam: NORMAL INSPECTION - Respiratory Exam Respiratory Exam: Decreased Breath Sounds. absent: Rales - Cardiovascular Exam Cardiovascular Exam: +S1, +S2 - GI/Abdominal Exam GI & Abdominal Exam: Soft. absent: Tenderness Additional comments: abdominal drain in place Assessment and Plan - Assessment and Plan (Free Text) Plan: Assessment Sepsis from severe sigmoid diverticulitis with diverticular abscess S/P R-guided drainage POD #3, showing E. faecium history of breast cancer S/P right breast partial mastectomy HTN dyslipidemia history of cecal volvulus S/P bowel resection Plan continue Zosyn and will add Vancomycin since the E. faecium is resistant to Ampicillin but sensitive to Vancomycin follow up further plans of surgery will continue to monitor clinically discussed with Dr. Vides
[2018-09-17] MEDS: Vancomycin 1gm in NS 250ml 1 GM/250 ML BAG IVPB SCH (13:44)
--- NOTE | 2018-09-17 15:57 | PN ---
DATE: 09/17/2018 SUBJECTIVE: The nice young lady from the cruise ship from [facility]. I spoke with her this morning. She looks better. She is smiling. She is drinking some fluids and keeping them down. Told me she is moving some gas. The belly is not as painful. She does have Dilaudid, but she never took it. MEDICATIONS: She is on Flagyl; heparin; potassium; she had morphine, which she never took that either; Norvasc, she has Percocet, she did not take that either; potassium; Protonix; Tylenol; Zofran and Zosyn; IV antibiotics. PHYSICAL EXAMINATION: VITAL SIGNS: She has a 98.2 temp, 72 pulse, 151/82 blood pressure, 18 respiratory rate, 96% O2 sat on room air. HEENT: Head is atraumatic, normocephalic. She is actually smiling this morning, which is wonderful. Throat is moist. NECK: Supple. HEART: Regular rate. LUNGS: Decreased breath sounds, but clear. ABDOMEN: Still a little bit bloated, but there are faint bowel sounds today. It is the first time I heard that. Nontender to palpation. She does have a drain still in the abscess that was draining. I do not know the amount. Yesterday, it was 30 mL. There was some yellow fluid in the bag. LABORATORY DATA: She has 9.8 white count, 12 hemoglobin, 35.5 hematocrit with 206 platelets. She has a 134 sodium, potassium 3.1. I will replace the potassium today. The BUN is 7, creatinine 0.5, GFR is greater than 60, sugar is 104, calcium 7.7, phosphorus 1.5, magnesium 1.8, total bili is 0.6, AST is 30, ALT is 31, alk phos 52, total protein is 5.3. Micro showed Enterococcus faecium in the Gram stain. ASSESSMENT AND PLAN: She is being seen by Cardiology, Infectious Disease, GI, Surgery. She had abdominal abscess, diverticulitis, hypertension, mild left ventricular hypertrophy. She has low potassium. We are going to replace the potassium. IV antibiotics. Diet as per GI. I do think she is improving. May be we will get her out of bed to chair. It will be nice if she can handle that. I think she is starting to turn the corner. who has an abscess in the intestines and diverticulitis. Bethel Vides DO MTDD
[2018-09-17] MEDS: Morphine 2 mg/ml ISec IVP PRN (18:00)
[2018-09-17] MEDS: Potassium Chl 40 mEq in D5-1/2 1,000 ML IV SCH (18:07)
[2018-09-17] MEDS ORDERED: HYDROmorphone 0.5 mg/0.5 ml ISec IVP STA (21:13)
--- NOTE | 2018-09-17 22:38 | CP.PCM.PCO ---
Physician Communication Note - Physician Communication Note Physician Communication Note: Clinically improving-Drain irrigation initiated
[2018-09-17] MEDS: Clotrimazole/Betamethasone Cream(15 gm) TOP SCH (23:13)
[2018-09-18] MEDS: Potassium Chl 40 mEq in D5-1/2 1,000 ML IV SCH ×3 (02:30→16:15)
[2018-09-18] MEDS: Morphine 2 mg/ml ISec IVP PRN (03:42)
[2018-09-18] MEDS: Piperacill/Tazo 4.5gm in NS 4.5 GM/100 ML BAG IVPB SCH ×3 (05:05→22:53)
[2018-09-18] MEDS: Vancomycin 1gm in NS 250ml 1 GM/250 ML BAG IVPB SCH ×2 (05:06→14:24)
[2018-09-18] MEDS ORDERED: Barium Sulfate Susp 2.1% w/v, 2.0% w/w 450 mL Bottle PO ONE (07:23)
[2018-09-18 07:30] LABS: BASO # 0.05 K/mm3 (0.0-2.0); BASO % 0.4 % (0.0-3.0); EOS # 0.3 (0.0-0.7); EOS % 2.7 % (1.5-5.0); GRAN # 8.62 (1.4-6.5); HEMOGLOBIN 11.6 g/dL (12.0-16.0); LYMPH # 1.7 (1.2-3.4); LYMPH % 14.7 % (22.0-35.0); MEAN CELL VOLUME 95.3 fl (80.0-105.0); MEAN CORPUSCULAR HEMOGLOBIN 31.8 pg (25.0-35.0); MEAN CORPUSCULAR HGB CONC 33.3 g/dl (31.0-37.0); MONO # 1.1 (0.1-0.6); MONO % 9.2 % (1.0-6.0); RBC 3.65 10^6/uL (3.5-6.1); RED CELL DISTRIBUTION WIDTH 13.1 % (11.5-14.5); WHITE BLOOD COUNT 11.8 10^3/uL (4.5-11.0)
[2018-09-18] MEDS ORDERED: HYDROmorphone 2 mg/ml ISec IVP PRN (07:37)
[2018-09-18 07:40] LABS: ALBUMIN 2.7 g/dL (3.0-4.8); ALT/SGPT 30 U/L (7-56); AST/SGOT 26 U/L (14-36); BLOOD UREA NITROGEN 4 mg/dL (7-21); CALCIUM 7.7 mg/dL (8.4-10.5); GFR NON-AFRICAN AMERICAN > 60
--- NOTE | 2018-09-18 09:49 | PN ---
DATE: 09/18/2018 SUBJECTIVE: She is very uncomfortable this morning in bed. I had talked to her through the translation machine at bedside. She is having lots of pain with the needle is put into the abscess. It is also draining, but not as much. I added Dilaudid 2 mg IV every 3 because the morphine was not working for her, so I bumped it up to a stronger medication. She is on Lotrisone cream for a rash, which I think is helping, Norvasc, Protonix, Tylenol, vancomycin IV and Zosyn IV by Infectious Disease. PHYSICAL EXAMINATION: VITAL SIGNS: She has a 97.9 temp, 83 pulse, 150/79 blood pressure, 18 respiratory rate, 96% O2 sat on room air. There was a temperature listed last night of 103 that is from the long chart that was not hers. I dug down deep and found it was a patient in the next room that will be corrected. LABORATORY DATA: She has a 11.8 white count, a little high; 11.6 hemoglobin; 34.8 hematocrit with 230 platelets. She has a 134 sodium, potassium 3.3, a little better. I am going to increase the potassium. BUN 4, creatinine 0.5, GFR is greater than 60, sugar is 123, calcium 7.7, total bili is 0.6, AST is 26, ALT is 30, alk phos 64. Troponin I is less than 0.01. Total protein is 5.4. She had Enterococcus faecium in Gram stain. ASSESSMENT AND PLAN: She is being seen by Surgery, Infectious Disease, Cardiology. At this time, Surgery did not want to do any surgery. She is also being seen by GI. She has had abdominal abscess, hypertension, left ventricular hypertrophy, mild cardiomyopathy consistent with hypertensive cardiomyopathy, hypokalemia. Cardiology is on the case. Surgery is on the case. Infectious Disease is keeping an eye on her. Severe sigmoid diverticulitis, diverticular abscess, status post right guided drainage. Postoperative day #3 showing Enterococcus faecium. Continue IV Zosyn and IV vancomycin. Watch closely. I increased the pain medications. We will check her labs tomorrow. Continued to be aggressive in her treatment. I discussed this with the patient and the with the hand miter operator. They understand what is going on. I do think clinically she is a little bit better, but she needs to improve further. Bethel Vides DO
[2018-09-18] MEDS ORDERED: HYDROmorphone 0.5 mg/0.5 ml ISec IVP PRN (09:59)
[2018-09-18] MEDS ORDERED: Potassium Phosphate 3 mmol/ml Inj IV ONE (10:09)
[2018-09-18] MEDS ORDERED: Potassium Phosphate 15 MMOLE in Sodium Chloride 0.9% 250 ML IVPB ONE (10:15)
--- NOTE | 2018-09-18 10:54 | CP.PCM.PN ---
Subjective - Date & Time of Evaluation Date of Evaluation: 09/18/18 Time of Evaluation: 10:48 - Subjective Subjective: Mitra Juarez, PGY-1, Surgery Progress Note for Dr. Soliz covering for Dr. Pimentel Patient seen and examined at bedside. Patient had 2 episodes of green vomitus last night and severe abdominal pain at the site of the catheter. Patient was given 2 mg of morphine and dilaudid 2 mg Q2 to help control the pain overnight. Patient did not have a bowel movement yesterday. Today, patient reports improved pain from last night, no nausea or vomiting, and no bowel movement. Objective - Vital Signs/Intake and Output Vital Signs (last 24 hours): Temp Pulse Resp BP Pulse Ox 97.9 F 83 18 150/79 96 09/18/18 06:00 09/18/18 06:00 09/18/18 06:00 09/18/18 06:00 09/18/18 06:00 - Medications Medications: Current Medications Acetaminophen (Tylenol 325mg Tab) 650 mg PO Q6H PRN PRN Reason: Fever >100.4 F Last Admin: 09/13/18 16:07 Dose: 650 mg Amlodipine Besylate (Norvasc) 5 mg PO DAILY [facility] Last Admin: 09/17/18 11:16 Dose: 5 mg Betamethasone/Clotrimazole (Lotrisone) 0 gm TOP 2200 [facility] Last Admin: 09/17/18 23:13 Dose: 1 units Heparin Sodium (Porcine) (Heparin) 5,000 units SC Q8 [facility]; Protocol Last Admin: 09/18/18 05:05 Dose: 5,000 units Home Med (Home Med) 1 unit PO DAILY [facility] Last Admin: 09/17/18 11:17 Dose: 1 unit Hydromorphone HCl (Dilaudid) 0.5 mg IVP Q3 PRN PRN Reason: Pain, moderate (4-7) Piperacillin Sod/Tazobactam Sod (Zosyn 4.5 Gm In Ns 100ml) 4.5 gm in 100 mls @ 25 mls/hr IVPB Q8 [facility]; Protocol Stop: 09/22/18 15:15 Last Admin: 09/18/18 05:05 Dose: 25 mls/hr Potassium Chloride/Dextrose/Sod Cl (Potassium Chl 40 Meq In D5-1/2ns) 1,000 mls @ 110 mls/hr IV .Q9H6M [facility] Last Admin: 09/18/18 02:30 Dose: 110 mls/hr Vancomycin HCl (Vancomycin 1gm) 1 gm in 250 mls @ 167 mls/hr IVPB Q12H [facility]; Protocol Last Admin: 09/18/18 05:06 Dose: 167 mls/hr Potassium Chloride (Potassium Chloride 10 Meq/100 Ml) 10 meq in 100 mls @ 50 mls/hr IVPB Q2H [facility] Stop: 09/18/18 13:29 Potassium Phosphate 15 mmole/ (Sodium Chloride) 255 mls @ 42.5 mls/hr IVPB ONCE ONE Stop: 09/18/18 16:14 Ondansetron HCl (Zofran Inj) 4 mg IVP Q4H PRN PRN Reason: Nausea/Vomiting Last Admin: 09/17/18 18:08 Dose: 4 mg Pantoprazole Sodium (Protonix Inj) 40 mg IVP DAILY [facility] Last Admin: 09/17/18 11:16 Dose: 40 mg - Labs Labs: 09/18/18 07:00 09/18/18 07:00 PT 13.8 SECONDS (9.4-12.5) H 09/13/18 02:26 INR 1.21 09/13/18 02:26 APTT 26.3 Seconds (25.1-36.5) 09/13/18 02:26 - Constitutional Appears: Well, Non-toxic, No Acute Distress - Head Exam Head Exam: ATRAUMATIC, NORMAL INSPECTION, NORMOCEPHALIC - Eye Exam Eye Exam: EOMI Pupil Exam: PERRL - Respiratory Exam Respiratory Exam: Clear to Ausculation Bilateral, NORMAL BREATHING PATTERN - Cardiovascular Exam Cardiovascular Exam: REGULAR RHYTHM - GI/Abdominal Exam GI & Abdominal Exam: Soft, Tenderness, Normal Bowel Sounds - Extremities Exam Extremities Exam: Full ROM - Back Exam Additional comments: Drain in place - Neurological Exam Neurological Exam: Alert, Awake, CN II-XII Intact, Oriented x3 - Psychiatric Exam Psychiatric exam: Normal Affect, Normal Mood Assessment and Plan - Assessment and Plan (Free Text) Assessment: 68 year old female with past medical history of hypertension and breast cancer presents with abdominal pain. Patient was found to have diverticulitis with phlegmon and free air on abdominal CT. Plan: Continue with antibiotics as per ID. Abdominal CT shows 2 pelvic abscesses. Follow up Dr. Pimentel's recommendations regarding possible OR in the AM tomorrow. Continue diet of minimal water and ice chips. Continue pain regimen and monitor pain control. Replete electrolytes as necessary. DVT prophylaxis with heparin and GI prophylaxis with protonix. Discussed plan with Dr. Soliz covering for Dr. Pimentel.
[2018-09-18] MEDS ORDERED: Iohexol 350 MG/100 ML VIAL ONE (11:12)
--- NOTE | 2018-09-18 12:28 | CT ---
Date of service: 09/18/2018 PROCEDURE: CT Abdomen and Pelvis with contrast HISTORY: diverticulitis, intra-abdominal abscess f/u COMPARISON: None. TECHNIQUE: Contrast dose: Radiation dose: Total exam DLP = 325.06 mGy-cm. This CT exam was performed using one or more of the following dose reduction techniques: Automated exposure control, adjustment of the mA and/or kV according to patient size, and/or use of iterative reconstruction technique. FINDINGS: LOWER THORAX: Small bilateral pleural effusions LIVER: Unremarkable. No gross lesion or ductal dilatation. GALLBLADDER AND BILE DUCTS: Unremarkable. PANCREAS: Unremarkable. No gross lesion or ductal dilatation. SPLEEN: Unremarkable. ADRENALS: Unremarkable. No mass. KIDNEYS AND URETERS: Unremarkable. No hydronephrosis. No solid mass. VASCULATURE: Unremarkable. No aortic aneurysm. No aortic atherosclerotic calcification or mural plaque present. BOWEL: There is a pelvic abscess on the right side of the rectum. There is a drainage catheter centrally within this collection. The collection is unchanged in size despite the presence of the catheter. There is a new fluid collection on the right side of the pelvis measures measuring 23 x 45 mm. Small separate 25 mm collections are seen near the midline more superiorly. Dilated loops of small bowel and large bowel are seen consistent with ileus. APPENDIX: Normal appendix. PERITONEUM: Unremarkable. No free fluid. No free air. LYMPH NODES: Unremarkable. No enlarged lymph nodes. BLADDER: Unremarkable. REPRODUCTIVE: Unremarkable. BONES: No acute fracture. OTHER FINDINGS: None. IMPRESSION: Drainage catheter in the large pelvic abscess adjacent to the rectum. New abscess collections are seen on the right side of the pelvis and more superiorly within the pelvis
--- NOTE | 2018-09-18 12:31 | CP.PCM.PN ---
Subjective - Date & Time of Evaluation Date of Evaluation: 09/18/18 Time of Evaluation: 10:45 - Subjective Subjective: Patient is still having abdominal pain. She has a recorded temperature of 103 F last night but I spoke with Dr. Vides today and apparently that was an error in recording. Patient is having poor PO intake and nauseated. Objective - Vital Signs/Intake and Output Vital Signs (last 24 hours): Temp Pulse Resp BP Pulse Ox 98.2 F 72 18 151/82 H 96 09/17/18 06:00 09/17/18 11:16 09/17/18 06:00 09/17/18 11:16 09/17/18 06:00 - Medications Medications: Current Medications Acetaminophen (Tylenol 325mg Tab) 650 mg PO Q6H PRN PRN Reason: Fever >100.4 F Last Admin: 09/13/18 16:07 Dose: 650 mg Amlodipine Besylate (Norvasc) [address] [facility] Last Admin: 09/17/18 11:16 Dose: 5 mg Heparin Sodium (Porcine) (Heparin) 5,000 units SC Q8 [facility]; Protocol Last Admin: 09/17/18 05:58 Dose: 5,000 units Home Med (Home Med) 1 unit PO DAILY [facility] Last Admin: 09/17/18 11:17 Dose: 1 unit Piperacillin Sod/Tazobactam Sod (Zosyn 4.5 Gm In Ns 100ml) 4.5 gm in 100 mls @ 25 mls/hr IVPB Q8 [facility]; Protocol Stop: 09/22/18 15:15 Last Admin: 09/17/18 05:58 Dose: 25 mls/hr Potassium Chloride/Dextrose/Sod Cl (Potassium Chl 40 Meq In D5-1/2ns) 1,000 mls @ 110 mls/hr IV .Q9H6M [facility] Last Admin: 09/16/18 23:44 Dose: Not Given Potassium Phosphate 30 mmole/ (Dextrose) 260 mls @ 42.5 mls/hr IVPB ONCE ONE Stop: 09/17/18 15:12 Last Admin: 09/17/18 11:12 Dose: 42.5 mls/hr Vancomycin HCl (Vancomycin 1gm) 1 gm in 250 mls @ 167 mls/hr IVPB Q12H [facility]; Protocol Ondansetron HCl (Zofran Inj) 4 mg IVP Q4H PRN PRN Reason: Nausea/Vomiting Last Admin: 09/16/18 11:58 Dose: 4 mg Oxycodone/Acetaminophen (Percocet 5/325 Mg Tab) 1 tab PO Q4H PRN PRN Reason: Pain, moderate (4-7) Stop: 09/17/18 14:00 Last Admin: 09/17/18 11:16 Dose: 1 tab Pantoprazole Sodium (Protonix Inj) 40 mg IVP DAILY [facility] Last Admin: 09/17/18 11:16 Dose: 40 mg - Labs Labs: 09/17/18 07:00 09/17/18 07:00 PT 13.8 SECONDS (9.4-12.5) H 09/13/18 02:26 INR 1.21 09/13/18 02:26 APTT 26.3 Seconds (25.1-36.5) 09/13/18 02:26 - Constitutional Appears: Chronically Ill - Head Exam Head Exam: NORMAL INSPECTION - Respiratory Exam Respiratory Exam: Decreased Breath Sounds - Cardiovascular Exam Cardiovascular Exam: +S1, +S2 - GI/Abdominal Exam GI & Abdominal Exam: Soft, Tenderness (lower parts of the abdomen, abdominal drain in place) Assessment and Plan - Assessment and Plan (Free Text) Plan: Assessment Sepsis from severe sigmoid diverticulitis with diverticular abscess S/P R-guided drainage POD #4, showing E. faecium (resistant to Ampicillin but sensitive to Vancomycin) history of breast cancer S/P right breast partial mastectomy HTN dyslipidemia history of cecal volvulus S/P bowel resection Plan continue Zosyn and Vancomycin since the E. faecium is resistant to Ampicillin but sensitive to Vancomycin - will get a Vanco trough before the 4th dose (and will give an extra dose of IV Vancomycin) follow up further plans of surgery - I spoke with Dr. Soliz and they have been monitoring the patient - since there was pneumoperitoneum (moderate) on initial CT A/P, he may opt to do surgery but wants to see the repeat CT A/P first will continue to monitor clinically discussed with Dr. Vides
[2018-09-18] MEDS ORDERED: Vancomycin 1gm in NS 250ml 1 GM/250 ML BAG IVPB STA (12:36)
[2018-09-18] MEDS: HYDROmorphone 0.5 mg/0.5 ml ISec IVP PRN (12:53)
--- NOTE | 2018-09-18 14:42 | RAD ---
Date of service: 09/18/2018 HISTORY: r/o free air COMPARISON: None available. FINDINGS: BOWEL: Mildly dilated loops of small bowel. No evidence of free air BONES: Normal. OTHER FINDINGS: None. IMPRESSION: Mildly dilated loops of small bowel. No evidence of free air
[2018-09-18] MEDS: Lidocaine 5% Patch TD SCH (14:55)
[2018-09-18] MEDS: BISOPROLOL PO SCH (18:15)
[2018-09-18] MEDS: [UNRECOGNIZED DRUG - OTHER] PO SCH (18:15)
--- NOTE | 2018-09-18 18:24 | CP.PCM.PCO ---
Physician Communication Note - Physician Communication Note Physician Communication Note: AFEBRILE NOT 103(wrong pt):c/o drain nerve pain
[2018-09-18] MEDS: Clotrimazole/Betamethasone Cream(15 gm) TOP SCH (22:52)
[2018-09-19] MEDS: Potassium Chl 40 mEq in D5-1/2 1,000 ML IV SCH ×2 (01:27→13:11)
[2018-09-19] MEDS: Vancomycin 1gm in NS 250ml 1 GM/250 ML BAG IVPB SCH ×2 (01:28→13:13)
[2018-09-19] MEDS: Piperacill/Tazo 4.5gm in NS 4.5 GM/100 ML BAG IVPB SCH ×3 (06:41→21:56)
[2018-09-19 07:58] LABS: BASO # 0.04 K/mm3 (0.0-2.0); BASO % 0.4 % (0.0-3.0); EOS # 0.5 (0.0-0.7); EOS % 4.2 % (1.5-5.0); GRAN # 7.81 (1.4-6.5); GRAN % 71.3 % (50.0-68.0); HEMOGLOBIN 13.5 g/dL (12.0-16.0); LYMPH # 2.1 (1.2-3.4); LYMPH % 18.7 % (22.0-35.0); MEAN CORPUSCULAR HEMOGLOBIN 32.1 pg (25.0-35.0); MEAN CORPUSCULAR HGB CONC 33.4 g/dl (31.0-37.0); MEAN PLATELET VOLUME 9.1 fl (7.0-11.0); MONO # 0.6 (0.1-0.6); MONO % 5.4 % (1.0-6.0); RBC 4.21 10^6/uL (3.5-6.1); RED CELL DISTRIBUTION WIDTH 13.1 % (11.5-14.5)
[2018-09-19 08:20] LABS: ALBUMIN 3.3 g/dL (3.0-4.8); ALT/SGPT 28 U/L (7-56); AST/SGOT 42 U/L (14-36); BLOOD UREA NITROGEN 3 mg/dL (7-21); CALCIUM 8.5 mg/dL (8.4-10.5); GFR NON-AFRICAN AMERICAN > 60
[2018-09-19] MEDS: Lidocaine 5% Patch TD SCH ×2 (10:49→10:55)
--- NOTE | 2018-09-19 14:30 | PN ---
DATE: 09/19/2018 SUBJECTIVE: She is a young lady that was, from [place], on the cruise ship who has a perforated intestine with an abscess and infection. Now she has another abscess and the drain that has been there, is draining feces. She is lying in bed. She tells me she feels a little bit better but uncomfortable. MEDICATIONS: She is on Dilaudid, heparin, Lidoderm, Lopressor, Lotrisone, Norvasc, potassium replacement, Protonix, Tylenol, vancomycin IV as needed and Zosyn IV. She is alert. She does not want to have surgery here, we offered her surgery, she prefers to do it back in [place], I will be talking to the [place] physician insurance. PHYSICAL EXAMINATION: VITAL SIGNS: She has a 98.2 temperature, 82 pulse, 150/75 blood pressure, 20 respiratory rate, 96% O2 sat on room air which is good. HEENT: Head is atraumatic, normocephalic. GENERAL: She is alert, talking, comfortable at this time. No pain. No pain medication was given also this morning. She was in worst pain yesterday. HEART: Regular rate. LUNGS: Decreased breath sounds but clear. ABDOMEN: Soft with positive bowel sounds. It is stiff, not a lot but there is some and little softer belly with no guarding, no rebound. EXTREMITIES: Have no edema. LABORATORY DATA: She has 11 white count, better; 13.5 hemoglobin, better; 40.4 hematocrit with 302,000 platelets. INR is 1.21. She has a 135 sodium; potassium 4.2, better; BUN 3; creatinine 0.5; GFR is greater than 60, better; sugar is 138. Calcium is 8.5, phosphorus is 2.2, magnesium 1.9, total bili is 0.7, AST is 42, ALT is 28, alk phos 104. Troponin I was less than 0.01, total protein is 6.5. Urine was clean. At this time, I feel this is the best moment if we are going to transfer her to [place] to do the surgery there. She does not want to do the surgery here, it was offered to her. We are trying to tune her up to get a surgery done in [place]. I discussed this with the [place] insurance company doctor. I discussed moving her, she has to lie flat on a plane, a doctor should accompany her. She is to continue the IV antibiotics, IV pain medication and the heparin subcutaneously to prevent any clots. He understood what I had to say. So we have two abscesses on the belly, one is being drained, I think the point where that she needs to have surgery to stop the perforation and clean out the belly. The doctor from [facility] in the insurance company agrees. We are hoping to get this arranged in the next 24-36 hours. In the meantime, I will continue our aggressive treatment and care, IV antibiotics, continue to drain the abscesses that we have, check her labs tomorrow and address things as they come along aggressively. This was all done through a certified flight instructor with the nurse, the , the patient all in the room and she understands everything; they all like the plan. Bethel Vides DO [id number]
--- NOTE | 2018-09-19 14:51 | CP.PCM.PN ---
Subjective - Date & Time of Evaluation Date of Evaluation: 09/19/18 Time of Evaluation: 12:45 - Subjective Subjective: Still having abdominal pain but a little less, no fevers, nausea is a little less. Objective - Vital Signs/Intake and Output Vital Signs (last 24 hours): Temp Pulse Resp BP Pulse Ox 97.9 F 87 18 130/70 96 09/18/18 06:00 09/18/18 10:59 09/18/18 06:00 09/18/18 10:59 09/18/18 06:00 - Medications Medications: Current Medications Acetaminophen (Tylenol 325mg Tab) 650 mg PO Q6H PRN PRN Reason: Fever >100.4 F Last Admin: 09/13/18 16:07 Dose: 650 mg Amlodipine Besylate (Norvasc) 5 mg PO DAILY [facility] Last Admin: 09/18/18 10:59 Dose: 5 mg Betamethasone/Clotrimazole (Lotrisone) 0 gm TOP 2200 [facility] Last Admin: 09/17/18 23:13 Dose: 1 units Heparin Sodium (Porcine) (Heparin) 5,000 units SC Q8 [facility]; Protocol Last Admin: 09/18/18 05:05 Dose: 5,000 units Home Med (Home Med) 1 unit PO DAILY [facility] Last Admin: 09/17/18 11:17 Dose: 1 unit Hydromorphone HCl (Dilaudid) 0.5 mg IVP Q3 PRN PRN Reason: Pain, moderate (4-7) Piperacillin Sod/Tazobactam Sod (Zosyn 4.5 Gm In Ns 100ml) 4.5 gm in 100 mls @ 25 mls/hr IVPB Q8 [facility]; Protocol Stop: 09/22/18 15:15 Last Admin: 09/18/18 05:05 Dose: 25 mls/hr Potassium Chloride/Dextrose/Sod Cl (Potassium Chl 40 Meq In D5-1/2ns) 1,000 mls @ 110 mls/hr IV .Q9H6M [facility] Last Admin: 09/18/18 02:30 Dose: 110 mls/hr Vancomycin HCl (Vancomycin 1gm) 1 gm in 250 mls @ 167 mls/hr IVPB Q12H [facility]; Protocol Last Admin: 09/18/18 05:06 Dose: 167 mls/hr Potassium Chloride (Potassium Chloride 10 Meq/100 Ml) 10 meq in 100 mls @ 50 mls/hr IVPB Q2H [facility] Stop: 09/18/18 13:29 Last Admin: 09/18/18 11:00 Dose: 50 mls/hr Ondansetron HCl (Zofran Inj) 4 mg IVP Q4H PRN PRN Reason: Nausea/Vomiting Last Admin: 09/17/18 18:08 Dose: 4 mg Pantoprazole Sodium (Protonix Inj) 40 mg IVP DAILY [facility] Last Admin: 09/18/18 11:01 Dose: 40 mg - Labs Labs: 09/18/18 07:00 09/18/18 07:00 PT 13.8 SECONDS (9.4-12.5) H 09/13/18 02:26 INR 1.21 09/13/18 02:26 APTT 26.3 Seconds (25.1-36.5) 09/13/18 02:26 - Constitutional Appears: Chronically Ill - Head Exam Head Exam: NORMAL INSPECTION - Respiratory Exam Respiratory Exam: Decreased Breath Sounds - Cardiovascular Exam Cardiovascular Exam: +S1, +S2 - GI/Abdominal Exam GI & Abdominal Exam: Soft, Tenderness. absent: Distended, Guarding, Rigid, Rebound Additional comments: abdominal drain in place Assessment and Plan - Assessment and Plan (Free Text) Plan: Assessment Sepsis from severe sigmoid diverticulitis with diverticular abscess S/P R-guided drainage POD #5, showing E. faecium (resistant to Ampicillin but sensitive to Vancomycin) - repeat CT A/P yesterday is showing new right sided pelvic abscess history of breast cancer S/P right breast partial mastectomy HTN dyslipidemia history of cecal volvulus S/P bowel resection Plan continue Zosyn and Vancomycin since the E. faecium is resistant to Ampicillin but sensitive to Vancomycin - will get a Vanco trough before the 4th dose follow up further plans of surgery will continue to monitor clinically discussed with Dr. Vides - we both agree that the patient needs surgery and he will talk again to surgery to see what should be done next - Dr. Vides is trying to arrange for patient to be transferred for surgery
[2018-09-19] MEDS: Clotrimazole/Betamethasone Cream(15 gm) TOP SCH (22:12)
--- NOTE | 2018-09-19 23:08 | CP.PCM.PN ---
Subjective - Date & Time of Evaluation Date of Evaluation: 09/19/18 Time of Evaluation: 06:45 - Subjective Subjective: Patient seen and examined. Reports abdominal pain has improved. Rates it a 10. Denies fever/chills. Objective - Vital Signs/Intake and Output Vital Signs (last 24 hours): Temp Pulse Resp BP Pulse Ox 98.2 F 86 20 178/89 H 95 09/19/18 22:00 09/19/18 22:00 09/19/18 22:00 09/19/18 22:00 09/19/18 22:00 Intake and Output: 09/19/18 09/20/18 18:59 06:59 Intake Total 180 Balance 180 - Medications Medications: Current Medications Acetaminophen (Tylenol 325mg Tab) 650 mg PO Q6H PRN PRN Reason: Fever >100.4 F Last Admin: 09/13/18 16:07 Dose: 650 mg Amlodipine Besylate (Norvasc) 5 mg PO DAILY [facility] Last Admin: 09/19/18 10:58 Dose: Not Given Betamethasone/Clotrimazole (Lotrisone) 0 gm TOP 2200 [facility] Last Admin: 09/19/18 22:12 Dose: Not Given Heparin Sodium (Porcine) (Heparin) 5,000 units SC Q8 [facility]; Protocol Last Admin: 09/19/18 21:58 Dose: 5,000 units Hydromorphone HCl (Dilaudid) 0.5 mg IVP Q3 PRN PRN Reason: Pain, moderate (4-7) Last Admin: 09/18/18 12:53 Dose: 0.5 mg Piperacillin Sod/Tazobactam Sod (Zosyn 4.5 Gm In Ns 100ml) 4.5 gm in 100 mls @ 25 mls/hr IVPB Q8 [facility]; Protocol Stop: 09/22/18 15:15 Last Admin: 09/19/18 21:56 Dose: 25 mls/hr Potassium Chloride/Dextrose/Sod Cl (Potassium Chl 40 Meq In D5-1/2ns) 1,000 mls @ 110 mls/hr IV .Q9H6M [facility] Last Admin: 09/19/18 13:11 Dose: 110 mls/hr Vancomycin HCl (Vancomycin 1gm) 1 gm in 250 mls @ 167 mls/hr IVPB Q12H [facility]; Protocol Last Admin: 09/19/18 13:13 Dose: 167 mls/hr Lidocaine (Lidoderm) 1 ea TD DAILY [facility] Last Admin: 09/19/18 10:55 Dose: Not Given Metoprolol Tartrate (Lopressor) 25 mg PO BID [facility] Last Admin: 09/19/18 18:36 Dose: 25 mg Ondansetron HCl (Zofran Inj) 4 mg IVP Q4H PRN PRN Reason: Nausea/Vomiting Last Admin: 09/17/18 18:08 Dose: 4 mg Pantoprazole Sodium (Protonix Inj) 40 mg IVP DAILY [facility] Last Admin: 09/19/18 10:50 Dose: 40 mg - Labs Labs: 09/19/18 07:00 09/19/18 07:00 PT 13.8 SECONDS (9.4-12.5) H 09/13/18 02:26 INR 1.21 09/13/18 02:26 APTT 26.3 Seconds (25.1-36.5) 09/13/18 02:26 - Constitutional Appears: No Acute Distress - Head Exam Head Exam: NORMOCEPHALIC - Eye Exam Eye Exam: EOMI, Normal appearance - ENT Exam ENT Exam: Mucous Membranes Moist - Respiratory Exam Respiratory Exam: NORMAL BREATHING PATTERN - Cardiovascular Exam Cardiovascular Exam: +S1, +S2 - GI/Abdominal Exam GI & Abdominal Exam: Soft, Tenderness. absent: Distended, Firm, Guarding, Rigid Additional comments: slight LLQ tenderness - Neurological Exam Neurological Exam: Alert, Awake, Oriented x3 - Psychiatric Exam Psychiatric exam: Normal Mood - Skin Skin Exam: Dry, Intact, Warm Assessment and Plan - Assessment and Plan (Free Text) Assessment: 68F with perforated sigmoid diverticulitis s/p IR drainage Plan: -Repeat CT demonstrating new pelvic collection as well as unchanged size of pelvic abscess collection where drain is located -Spoke with patient extensively about surgical options -Expressed to patient since abscess has remained unchanged at this time surgical intervention will be required to remove pelvic collections -At this time patient is requesting to fly to [place] to have surgery done there -Since patient is clinically stable this may be considered, however, logistics of having an accepting surgeon in [place] will have to be worked out -In the meantime the patient will continue receiving antibiotics -Analgesics prn -DVT ppx -Encourage ambulation -Ok to resume CLD -D/w Dr. Margarito Carrillo PGY3
[2018-09-20] MEDS: Vancomycin 1gm in NS 250ml 1 GM/250 ML BAG IVPB SCH ×2 (00:19→13:44)
[2018-09-20] MEDS: Potassium Chl 40 mEq in D5-1/2 1,000 ML IV SCH ×3 (04:29→18:03)
[2018-09-20] MEDS: Piperacill/Tazo 4.5gm in NS 4.5 GM/100 ML BAG IVPB SCH ×3 (05:16→22:19)
[2018-09-20] MEDS ORDERED: Sodium Phosphate 15 MMOLE in Dextrose 5% In Water 250 ML IVPB ONE (07:46)
[2018-09-20 08:11] LABS: BASO # 0.02 K/mm3 (0.0-2.0); BASO % 0.2 % (0.0-3.0); EOS # 0.3 (0.0-0.7); EOS % 2.5 % (1.5-5.0); GRAN # 8.47 (1.4-6.5); GRAN % 75.6 % (50.0-68.0); HEMOGLOBIN 11.9 g/dL (12.0-16.0); LYMPH # 1.7 (1.2-3.4); LYMPH % 15.3 % (22.0-35.0); MEAN CELL VOLUME 96.8 fl (80.0-105.0); MEAN CORPUSCULAR HEMOGLOBIN 31.6 pg (25.0-35.0); MEAN CORPUSCULAR HGB CONC 32.7 g/dl (31.0-37.0); MEAN PLATELET VOLUME 8.8 fl (7.0-11.0); MONO # 0.7 (0.1-0.6); MONO % 6.4 % (1.0-6.0); RBC 3.76 10^6/uL (3.5-6.1); RED CELL DISTRIBUTION WIDTH 13.5 % (11.5-14.5); WHITE BLOOD COUNT 11.2 10^3/uL (4.5-11.0)
[2018-09-20 08:25] LABS: ALBUMIN 3.1 g/dL (3.0-4.8); ALT/SGPT 39 U/L (7-56); AST/SGOT 54 U/L (14-36); BLOOD UREA NITROGEN 7 mg/dL (7-21); CALCIUM 8.5 mg/dL (8.4-10.5); GFR NON-AFRICAN AMERICAN > 60
[2018-09-20] MEDS: Lidocaine 5% Patch TD SCH (11:06)
--- NOTE | 2018-09-20 13:24 | CP.PCM.PN ---
Subjective - Date & Time of Evaluation Date of Evaluation: 09/20/18 Time of Evaluation: 11:55 - Subjective Subjective: Has a little less abdominal pain, no fevers, not in distress but still with occasional nausea. Still feels weak. Objective - Vital Signs/Intake and Output Vital Signs (last 24 hours): Temp Pulse Resp BP Pulse Ox 98.2 F 82 20 150/75 96 09/19/18 06:00 09/19/18 06:00 09/19/18 06:00 09/19/18 06:00 09/19/18 06:00 Intake and Output: 09/19/18 09/19/18 06:59 18:59 Intake Total 180 Output Total 15 Balance -15 180 - Medications Medications: Current Medications Acetaminophen (Tylenol 325mg Tab) 650 mg PO Q6H PRN PRN Reason: Fever >100.4 F Last Admin: 09/13/18 16:07 Dose: 650 mg Amlodipine Besylate (Norvasc) 5 mg PO DAILY [facility] Last Admin: 09/19/18 10:58 Dose: Not Given Betamethasone/Clotrimazole (Lotrisone) 0 gm TOP 2200 [facility] Last Admin: 09/18/18 22:52 Dose: 1 units Heparin Sodium (Porcine) (Heparin) 5,000 units SC Q8 [facility]; Protocol Last Admin: 09/19/18 13:11 Dose: 5,000 units Hydromorphone HCl (Dilaudid) 0.5 mg IVP Q3 PRN PRN Reason: Pain, moderate (4-7) Last Admin: 09/18/18 12:53 Dose: 0.5 mg Piperacillin Sod/Tazobactam Sod (Zosyn 4.5 Gm In Ns 100ml) 4.5 gm in 100 mls @ 25 mls/hr IVPB Q8 [facility]; Protocol Stop: 09/22/18 15:15 Last Admin: 09/19/18 13:13 Dose: 25 mls/hr Potassium Chloride/Dextrose/Sod Cl (Potassium Chl 40 Meq In D5-1/2ns) 1,000 mls @ 110 mls/hr IV .Q9H6M [facility] Last Admin: 09/19/18 13:11 Dose: 110 mls/hr Vancomycin HCl (Vancomycin 1gm) 1 gm in 250 mls @ 167 mls/hr IVPB Q12H [facility]; Protocol Last Admin: 09/19/18 13:13 Dose: 167 mls/hr Lidocaine (Lidoderm) 1 ea TD DAILY [facility] Last Admin: 09/19/18 10:55 Dose: Not Given Metoprolol Tartrate (Lopressor) 25 mg PO BID [facility] Last Admin: 09/19/18 10:57 Dose: Not Given Ondansetron HCl (Zofran Inj) 4 mg IVP Q4H PRN PRN Reason: Nausea/Vomiting Last Admin: 09/17/18 18:08 Dose: 4 mg Pantoprazole Sodium (Protonix Inj) 40 mg IVP DAILY [facility] Last Admin: 09/19/18 10:50 Dose: 40 mg - Labs Labs: 09/19/18 07:00 09/19/18 07:00 PT 13.8 SECONDS (9.4-12.5) H 09/13/18 02:26 INR 1.21 09/13/18 02:26 APTT 26.3 Seconds (25.1-36.5) 09/13/18 02:26 - Constitutional Appears: Chronically Ill - Head Exam Head Exam: NORMAL INSPECTION - Respiratory Exam Respiratory Exam: Decreased Breath Sounds - Cardiovascular Exam Cardiovascular Exam: +S1, +S2 - GI/Abdominal Exam GI & Abdominal Exam: Soft, Tenderness (lower abdomen), Rebound. absent: Dis tended, Guarding, Rigid Additional comments: abdominal drain in place Assessment and Plan - Assessment and Plan (Free Text) Plan: Assessment Sepsis from severe sigmoid diverticulitis with diverticular abscess S/P R-guided drainage POD #6, showing E. faecium (resistant to Ampicillin but sensitive to Vancomycin) - repeat CT A/P yesterday is showing new right sided pelvic abscess history of breast cancer S/P right breast partial mastectomy HTN dyslipidemia history of cecal volvulus S/P bowel resection Plan continue Zosyn and Vancomycin since the E. faecium is resistant to Ampicillin but sensitive to Vancomycin - will get a Vanco trough will continue to monitor clinically discussed with Dr. Vides - we both agree that the patient needs surgery and he will talk again to surgery to arrange for it
--- NOTE | 2018-09-20 14:14 | CP.PCM.PN ---
Subjective - Date & Time of Evaluation Date of Evaluation: 09/20/18 Time of Evaluation: 14:12 - Subjective Subjective: General Surgery Dr. Pimentel Pt S&E @bedside. No acute events overnight. pain well controlled. denies F/C, N/V. tolerating diet. Objective - Vital Signs/Intake and Output Vital Signs (last 24 hours): Temp Pulse Resp BP Pulse Ox 98.0 F 78 20 168/79 H 97 09/20/18 06:00 09/20/18 11:05 09/20/18 06:00 09/20/18 11:05 09/20/18 06:00 Intake and Output: 09/20/18 09/20/18 06:59 18:59 Intake Total 180 Balance 180 - Medications Medications: Current Medications Acetaminophen (Tylenol 325mg Tab) 650 mg PO Q6H PRN PRN Reason: Fever >100.4 F Last Admin: 09/13/18 16:07 Dose: 650 mg Amlodipine Besylate (Norvasc) 5 mg PO DAILY [facility] Last Admin: 09/20/18 11:05 Dose: 5 mg Betamethasone/Clotrimazole (Lotrisone) 0 gm TOP 2200 [facility] Last Admin: 09/19/18 22:12 Dose: Not Given Heparin Sodium (Porcine) (Heparin) 5,000 units SC Q8 [facility]; Protocol Last Admin: 09/20/18 05:48 Dose: 5,000 units Hydromorphone HCl (Dilaudid) 0.5 mg IVP Q3 PRN PRN Reason: Pain, moderate (4-7) Last Admin: 09/18/18 12:53 Dose: 0.5 mg Piperacillin Sod/Tazobactam Sod (Zosyn 4.5 Gm In Ns 100ml) 4.5 gm in 100 mls @ 25 mls/hr IVPB Q8 [facility]; Protocol Stop: 09/22/18 15:15 Last Admin: 09/20/18 13:44 Dose: 25 mls/hr Potassium Chloride/Dextrose/Sod Cl (Potassium Chl 40 Meq In D5-1/2ns) 1,000 mls @ 110 mls/hr IV .Q9H6M [facility] Last Admin: 09/20/18 13:45 Dose: Not Given Vancomycin HCl (Vancomycin 1gm) 1 gm in 250 mls @ 167 mls/hr IVPB Q12H [facility]; Protocol Last Admin: 09/20/18 13:44 Dose: 167 mls/hr Ketorolac Tromethamine (Toradol) 30 mg IVP Q6H [facility] Stop: 09/20/18 17:16 Last Admin: 09/20/18 13:45 Dose: Not Given Lidocaine (Lidoderm) 1 ea TD DAILY [facility] Last Admin: 09/20/18 11:06 Dose: 1 ea Metoprolol Tartrate (Lopressor) 25 mg PO BID [facility] Last Admin: 09/20/18 11:05 Dose: 25 mg Ondansetron HCl (Zofran Inj) 4 mg IVP Q4H PRN PRN Reason: Nausea/Vomiting Last Admin: 09/17/18 18:08 Dose: 4 mg Pantoprazole Sodium (Protonix Inj) 40 mg IVP DAILY [facility] Last Admin: 09/20/18 11:06 Dose: 40 mg - Labs Labs: 09/20/18 07:00 09/20/18 07:00 PT 13.8 SECONDS (9.4-12.5) H 09/13/18 02:26 INR 1.21 09/13/18 02:26 APTT 26.3 Seconds (25.1-36.5) 09/13/18 02:26 - Constitutional Appears: Non-toxic, No Acute Distress - Head Exam Head Exam: NORMAL INSPECTION - Eye Exam Eye Exam: Normal appearance - ENT Exam ENT Exam: Mucous Membranes Moist - Respiratory Exam Respiratory Exam: NORMAL BREATHING PATTERN. absent: Accessory Muscle Use, Respiratory Distress - Cardiovascular Exam Cardiovascular Exam: REGULAR RHYTHM. absent: Bradycardia, Tachycardia - GI/Abdominal Exam GI & Abdominal Exam: Soft, Tenderness (mild, LLQ). absent: Distended, Firm, Guarding, Rigid, Rebound Additional comments: IR drain w/ feculent drainage - Extremities Exam Extremities Exam: Normal Inspection - Neurological Exam Neurological Exam: Alert, Awake, Oriented x3 - Psychiatric Exam Psychiatric exam: Normal Affect, Normal Mood - Skin Skin Exam: Dry, Intact, Normal Color, Warm Assessment and Plan - Assessment and Plan (Free Text) Assessment: 68F with perforated sigmoid diverticulitis s/p IR drainage Plan: - plan for OR tomorrow for Butts's procedure - consent obtained and placed in chart - NPO @MN - IVF once NPO - cont IV Abx per ID - cont pain management - hold anticoagulation - encourage OOB to chair/Amb/IS use Pt discussed w/ Dr. Margarito Bauman DO PGY3
--- NOTE | 2018-09-20 14:28 | PN ---
DATE: 09/20/2018 SUBJECTIVE: She is a nice lady from the cruise [place] from [place], who has got a perforated intestine with 2 abscesses in her belly, IV antibiotics and a drain placed in which is now draining stool, brown. She is going to need to have surgery. She refused it when I first offered it to her. She is wanting to go back to [place] for the surgery. I have been dealing with the [place] insurance company and doctors there and they recommend to do it here since it will take them to at least Friday, possibly doing surgery [place]. Now she finally agrees to have the surgery here in [facility]. I am reaching out to the surgical team to possibly arrange it for tomorrow, Friday. She agrees with that finally and hopefully I could get that arranged. MEDICATIONS: She is on Dilaudid, heparin, Lidoderm, Lopressor, Lotrisone, Norvasc, potassium, Protonix, IV fluids, Toradol, Tylenol, vancomycin IV, Zofran and Zosyn IV. PHYSICAL EXAMINATION: VITAL SIGNS: She has a 98 temperature, 78 pulse, 168/79 blood pressure, 20 respiratory rate and 97% O2 sat on room air. HEENT: Head is atraumatic, normocephalic. HEART: Regular rate. LUNGS: Decreased breath sounds but clear. ABDOMEN: The abdomen is a little bit softer than yesterday. Decreased bowel sounds but nontender. No guarding, no rebound. This is a window of opportunity. EXTREMITIES: No edema. LABORATORY DATA: She has 11.2 white count, 11.9 hemoglobin, 36.4 hematocrit with 327,000 platelets. Sodium 138, potassium 3.7, BUN 7, creatinine 0.9, GFR is greater than 60, sugar is 136. Calcium is 8.5, phosphorus 3.2, magnesium 1.9, total bili is 1, AST is 54, ALT is 39, alk phos 120. Last troponin I was 0.01. Total protein is 6.3. Urine is clean. She has Enterococcus faecium in the Gram stain. She is being seen by Infectious Disease, Surgery, also Cardiology. I am hoping that I can arrange the surgery for tomorrow, Friday, waiting for Surgery to call me back. She has diverticulitis with 2 abscesses now and a drain draining fecal material. Bethel Vides DO
[2018-09-20] MEDS: Clotrimazole/Betamethasone Cream(15 gm) TOP SCH (23:09)
[2018-09-21] MEDS: Vancomycin 1gm in NS 250ml 1 GM/250 ML BAG IVPB SCH ×3 (00:43→13:05)
[2018-09-21] MEDS: Piperacill/Tazo 4.5gm in NS 4.5 GM/100 ML BAG IVPB SCH ×3 (05:29→23:32)
[2018-09-21 07:52] LABS: BASO # 0.02 K/mm3 (0.0-2.0); BASO % 0.2 % (0.0-3.0); EOS # 0.2 (0.0-0.7); EOS % 2.1 % (1.5-5.0); GRAN # 6.75 (1.4-6.5); GRAN % 76.9 % (50.0-68.0); HEMOGLOBIN 11.5 g/dL (12.0-16.0); LYMPH # 1.3 (1.2-3.4); LYMPH % 14.2 % (22.0-35.0); MEAN CELL VOLUME 97.5 fl (80.0-105.0); MEAN CORPUSCULAR HEMOGLOBIN 31.8 pg (25.0-35.0); MEAN CORPUSCULAR HGB CONC 32.6 g/dl (31.0-37.0); MONO # 0.6 (0.1-0.6); MONO % 6.6 % (1.0-6.0); RBC 3.62 10^6/uL (3.5-6.1); RED CELL DISTRIBUTION WIDTH 13.5 % (11.5-14.5); WHITE BLOOD COUNT 8.8 10^3/uL (4.5-11.0)
[2018-09-21 07:59] LABS: INR 1.07; PARTIAL THROMBOPLASTIN TIME 23.8 Seconds (25.1-36.5); PROTHROMBIN TIME 12.3 SECONDS (9.4-12.5)
[2018-09-21 08:03] LABS: ALBUMIN 3.1 g/dL (3.0-4.8); ALT/SGPT 36 U/L (7-56); AST/SGOT 45 U/L (14-36); BLOOD UREA NITROGEN 7 mg/dL (7-21); CALCIUM 8.5 mg/dL (8.4-10.5); GFR NON-AFRICAN AMERICAN > 60
[2018-09-21] MEDS: HYDROmorphone 0.5 mg/0.5 ml ISec IVP PRN (08:04)
[2018-09-21] MEDS: Lidocaine 5% Patch TD SCH (09:29)
--- NOTE | 2018-09-21 09:36 | RAD ---
Date of service: 09/21/2018 HISTORY: pre-op COMPARISON: 09/13/2018 FINDINGS: LUNGS: No active pulmonary disease. PLEURA: No significant pleural effusion identified, no pneumothorax apparent. CARDIOVASCULAR: Aortic calcification Normal cardiac size. No pulmonary vascular congestion. OSSEOUS STRUCTURES: No significant abnormalities. VISUALIZED UPPER ABDOMEN: Normal. OTHER FINDINGS: None. IMPRESSION: No active disease.
--- NOTE | 2018-09-21 10:00 | PN ---
DATE: 09/21/2018 SUBJECTIVE: She is not happy being in bed, knowing she is going to go for a surgery this afternoon and possible sigmoid colostomy and colectomy and possible colostomy. She is on Dilaudid, heparin, Lidoderm, Lopressor, Lotrisone, Norvasc, potassium, Protonix, Tylenol, vancomycin, Zofran and Zosyn. PHYSICAL EXAMINATION: VITAL SIGNS: She has a 98.6 temperature, 83 pulse, 177/91 blood pressure, 18 respiratory rate, 95% O2 sat on room air. HEAD: Atraumatic, normocephalic. HEART: Regular rate. LUNGS: Decreased breath sounds, but clear. ABDOMEN: Soft. Decreased bowel sounds. Nontender. No guarding or rebound. EXTREMITIES: No edema. LABORATORY DATA: She has 8.8 white count, best it has been, 11.5 hemoglobin, 35.3 hematocrit with 68 platelets. INR is 1.07. She has 139 sodium, potassium 3.6, BUN 7, creatinine 0.9, GFR greater than 60, sugar is 135, calcium is 8.5, phosphorus 3.3, magnesium 1.8, total bili is 0.8, AST is down to 45, ALT is 36, alk phos 116, total protein 6.3. The plan is to do surgery today due to the perforated intestine. The interventional radiologist with a drain into one of the abscesses which is draining fecal material. They are going to do Sandra's procedure, I believe, this afternoon. eBthel Vides DO
[2018-09-21] MEDS: Potassium Chl 40 mEq in D5-1/2 1,000 ML IV SCH (11:27)
--- NOTE | 2018-09-21 17:05 | CP.PCM.PN ---
Subjective - Date & Time of Evaluation Date of Evaluation: 09/21/18 Time of Evaluation: 10:55 - Subjective Subjective: Patient is scheduled for surgery today, no fevers, still with abdominal discomfort and occasional pain and bloating. Objective - Vital Signs/Intake and Output Vital Signs (last 24 hours): Temp Pulse Resp BP Pulse Ox 98.0 F 78 20 168/79 H 97 09/20/18 06:00 09/20/18 11:05 09/20/18 06:00 09/20/18 11:05 09/20/18 06:00 Intake and Output: 09/20/18 09/20/18 06:59 18:59 Intake Total 180 Balance 180 - Medications Medications: Current Medications Acetaminophen (Tylenol 325mg Tab) 650 mg PO Q6H PRN PRN Reason: Fever >100.4 F Last Admin: 09/13/18 16:07 Dose: 650 mg Amlodipine Besylate (Norvasc) 5 mg PO DAILY [facility] Last Admin: 09/20/18 11:05 Dose: 5 mg Betamethasone/Clotrimazole (Lotrisone) 0 gm TOP 2200 [facility] Last Admin: 09/19/18 22:12 Dose: Not Given Heparin Sodium (Porcine) (Heparin) 5,000 units SC Q8 [facility]; Protocol Last Admin: 09/20/18 05:48 Dose: 5,000 units Hydromorphone HCl (Dilaudid) 0.5 mg IVP Q3 PRN PRN Reason: Pain, moderate (4-7) Last Admin: 09/18/18 12:53 Dose: 0.5 mg Piperacillin Sod/Tazobactam Sod (Zosyn 4.5 Gm In Ns 100ml) 4.5 gm in 100 mls @ 25 mls/hr IVPB Q8 [facility]; Protocol Stop: 09/22/18 15:15 Last Admin: 09/20/18 05:16 Dose: 25 mls/hr Potassium Chloride/Dextrose/Sod Cl (Potassium Chl 40 Meq In D5-1/2ns) 1,000 mls @ 110 mls/hr IV .Q9H6M [facility] Last Admin: 09/20/18 04:29 Dose: 110 mls/hr Vancomycin HCl (Vancomycin 1gm) 1 gm in 250 mls @ 167 mls/hr IVPB Q12H [facility]; Protocol Last Admin: 09/20/18 00:19 Dose: 167 mls/hr Sodium Phosphate 15 mmole/ (Dextrose) 255 mls @ 42.5 mls/hr IVPB ONCE ONE Stop: 09/20/18 13:45 Ketorolac Tromethamine (Toradol) 30 mg IVP Q6H [facility] Stop: 09/20/18 17:16 Last Admin: 09/20/18 06:02 Dose: Not Given Lidocaine (Lidoderm) 1 ea TD DAILY [facility] Last Admin: 09/20/18 11:06 Dose: 1 ea Metoprolol Tartrate (Lopressor) 25 mg PO BID [facility] Last Admin: 09/20/18 11:05 Dose: 25 mg Ondansetron HCl (Zofran Inj) 4 mg IVP Q4H PRN PRN Reason: Nausea/Vomiting Last Admin: 09/17/18 18:08 Dose: 4 mg Pantoprazole Sodium (Protonix Inj) 40 mg IVP DAILY [facility] Last Admin: 09/20/18 11:06 Dose: 40 mg - Labs Labs: 09/20/18 07:00 09/20/18 07:00 PT 13.8 SECONDS (9.4-12.5) H 09/13/18 02:26 INR 1.21 09/13/18 02:26 APTT 26.3 Seconds (25.1-36.5) 09/13/18 02:26 - Constitutional Appears: Chronically Ill - Head Exam Head Exam: NORMAL INSPECTION - GI/Abdominal Exam GI & Abdominal Exam: Soft, Tenderness (lower abdomen). absent: Distended, Guard ing, Rigid, Rebound Additional comments: abdominal drain in place Assessment and Plan - Assessment and Plan (Free Text) Plan: Assessment Sepsis from severe sigmoid diverticulitis with diverticular abscess S/P R-guided drainage POD #7, showing E. faecium (resistant to Ampicillin but sensitive to Vancomycin) - repeat CT A/P yesterday is showing new right sided pelvic abscess history of breast cancer S/P right breast partial mastectomy HTN dyslipidemia history of cecal volvulus S/P bowel resection Plan continue Zosyn and Vancomycin since the E. faecium is resistant to Ampicillin but sensitive to Vancomycin - will follow up Vanco trough (vanco level that we have is not a trough level) will continue to monitor clinically discussed with Dr. Vides - patient will get surgery today
[2018-09-21] MEDS ORDERED: Bupivacaine 0.5% 50 ML IJ ONE (17:18)
[2018-09-21] MEDS ORDERED: Midazolam 2 MG/2 ML VIAL ONE (17:26)
[2018-09-21] MEDS ORDERED: Propofol 10 mg/ml Inj (20 ML) ONE (17:26)
[2018-09-21] MEDS ORDERED: Succinylcholine 200 mg/10 ml Inj IV ONE (17:27)
[2018-09-21] MEDS ORDERED: Phenylephrine 10 mg/ml Inj ONE (17:43)
[2018-09-21] MEDS ORDERED: Rocuronium 10 mg/ml (5 ml) ONE (17:43)
[2018-09-21] MEDS ORDERED: Bupivacaine Liposomal Inj 20 ml ONE (19:12)
[2018-09-21] MEDS ORDERED: Glycopyrrolate 0.2 mg/ml (2ml vial) ONE (19:36)
[2018-09-21] MEDS ORDERED: Neostigmine Methylsulfate 3mg/3ml Syringe IV ONE (19:38)
[2018-09-21] MEDS ORDERED: Liquid Adhesive TOP ONE (19:40)
[2018-09-21] MEDS ORDERED: Absorbable Gelatin Sponge Size 100 ONE (19:40)
--- NOTE | 2018-09-21 20:15 | PCM.SURG1 ---
Surgeon's Initial Post Op Note - Surgeon's Notes Surgeon: Dr. Pimentel Scouts: Dr. Dalton PGY4, Dr. Jarvis PGY3, Dr. Trinidad PGY1, Samira OMS4 Type of Anesthesia: General Endo, Local Pre-Operative Diagnosis: perforated diverticulitis w/ pelvic abscess Operative Findings: pelvic abscesses multiple, inflammed sigmoid colon, diverticula large Post-Operative Diagnosis: same Operation Performed: exploratory laparotomy, Sandra's procedure Specimen/Specimens Removed: sigmoid colon, abscess culture Estimated Blood Loss: EBL {In ML}: 100 Blood Products Given: N/A Drains Used: Drake, Ostomy Device Post-Op Condition: Good Date of Surgery/Procedure: 09/21/18 Time of Surgery/Procedure: 20:16
[2018-09-21] MEDS ORDERED: HYDROmorphone 0.5 mg/0.5 ml ISec IVP PRN (20:16)
[2018-09-21] MEDS ORDERED: HYDROmorphone 0.2 mg/ml (30ml) 25 ML IV PRN (20:18)
[2018-09-21] MEDS ORDERED: DiphenhydrAMINE 50 mg/ml Inj IVP PRN (20:19)
[2018-09-21] MEDS ORDERED: HYDROmorphone 0.5 mg/0.5 ml ISec ONE ×2 (20:29→20:45)
[2018-09-21] MEDS ORDERED: Lactated Ringer's 1,000 ML IV SCH ×2 (20:30→20:45)
[2018-09-22] MEDS: Vancomycin 1gm in NS 250ml 1 GM/250 ML BAG IVPB SCH ×3 (00:39→18:43)
[2018-09-22] MEDS: Piperacill/Tazo 4.5gm in NS 4.5 GM/100 ML BAG IVPB SCH ×2 (05:33→13:35)
[2018-09-22 07:53] LABS: BASO # 0.02 K/mm3 (0.0-2.0); BASO % 0.1 % (0.0-3.0); EOS # 0.1 (0.0-0.7); EOS % 0.4 % (1.5-5.0); GRAN # 16.64 (1.4-6.5); HEMOGLOBIN 10.9 g/dL (12.0-16.0); LYMPH # 1.1 (1.2-3.4); LYMPH % 5.9 % (22.0-35.0); MEAN CELL VOLUME 98.3 fl (80.0-105.0); MEAN CORPUSCULAR HEMOGLOBIN 31.8 pg (25.0-35.0); MEAN CORPUSCULAR HGB CONC 32.3 g/dl (31.0-37.0); MEAN PLATELET VOLUME 8.7 fl (7.0-11.0); MONO # 0.7 (0.1-0.6); MONO % 3.6 % (1.0-6.0); RBC 3.43 10^6/uL (3.5-6.1); RED CELL DISTRIBUTION WIDTH 13.6 % (11.5-14.5); WHITE BLOOD COUNT 18.5 10^3/uL (4.5-11.0)
[2018-09-22 08:10] LABS: ALB/GLOB RATIO 0.9 (1.1-1.8); ALBUMIN 2.6 g/dL (3.0-4.8); CALCIUM 7.8 mg/dL (8.4-10.5)
[2018-09-22] MEDS ORDERED: Magnesium Sulfate 2 gm/50 ml 2 GM/50 ML BAG IVPB ONE (08:25)
--- NOTE | 2018-09-22 08:29 | CP.PCM.PN ---
Subjective - Date & Time of Evaluation Date of Evaluation: 09/22/18 Time of Evaluation: 06:35 - Subjective Subjective: Patient seen and examined. No acute events over night. Communication done via melter helper mysportgroupe mike. Patient has no complaints. Using BINDING FOLDER MACHINE. Stoma appears nice and pink. No flatus or BM noted. IR drain wound site is dry and clear with ster ile pressure dressing applied. Objective - Vital Signs/Intake and Output Vital Signs (last 24 hours): Temp Pulse Resp BP Pulse Ox 98.7 F 74 18 157/71 H 93 L 09/21/18 22:30 09/21/18 22:30 09/21/18 22:30 09/21/18 22:30 09/21/18 22:30 Intake and Output: 09/22/18 09/22/18 06:59 18:59 Intake Total 0 Output Total 1135 Balance -1135 - Medications Medications: Current Medications Acetaminophen (Tylenol 325mg Tab) 650 mg PO Q6H PRN PRN Reason: Fever >100.4 F Last Admin: 09/13/18 16:07 Dose: 650 mg Amlodipine Besylate (Norvasc) 5 mg PO DAILY [facility] Last Admin: 09/21/18 09:18 Dose: 5 mg Betamethasone/Clotrimazole (Lotrisone) 0 gm TOP 2200 [facility] Last Admin: 09/20/18 23:09 Dose: Not Given Diphenhydramine HCl (Benadryl) 25 mg IVP Q4H PRN PRN Reason: Itching / Pruritus Stop: 09/22/18 23:59 Heparin Sodium (Porcine) (Heparin) 5,000 units SC Q8 [facility]; Protocol Last Admin: 09/22/18 05:17 Dose: Not Given Hydromorphone HCl (Dilaudid) 0.5 mg IVP Q3 PRN PRN Reason: Pain, moderate (4-7) Last Admin: 09/21/18 08:04 Dose: 0.5 mg Piperacillin Sod/Tazobactam Sod (Zosyn 4.5 Gm In Ns 100ml) 4.5 gm in 100 mls @ 25 mls/hr IVPB Q8 [facility]; Protocol Stop: 09/22/18 15:15 Last Admin: 09/22/18 05:33 Dose: 25 mls/hr Vancomycin HCl (Vancomycin 1gm) 1 gm in 250 mls @ 167 mls/hr IVPB Q12H [facility]; Protocol Last Admin: 09/22/18 00:39 Dose: 167 mls/hr Hydromorphone HCl (Dilaudid 0.2 Mg/Ml Tailor Apprentice) 25 mls @ 0 mls/hr IV PRN PRN; Prot ocol PRN Reason: BINDING FOLDER MACHINE PER MD ORDER Stop: 09/22/18 23:59 Last Admin: 09/21/18 23:29 Dose: 1 mls/hr Potassium Chloride/Dextrose/Sod Cl (Potassium Chl 20 Meq In D5-1/2ns) 1,000 mls @ 100 mls/hr IV .Q10H [facility] Ketorolac Tromethamine (Toradol) 30 mg IVP ONCE PRN PRN Reason: Pain, moderate (4-7) Lidocaine (Lidoderm) 1 ea TD DAILY [facility] Last Admin: 09/21/18 09:29 Dose: 1 ea Metoprolol Tartrate (Lopressor) 25 mg PO BID [facility] Last Admin: 09/21/18 09:20 Dose: Not Given Ondansetron HCl (Zofran Inj) 4 mg IVP Q4H PRN PRN Reason: Nausea/Vomiting Last Admin: 09/17/18 18:08 Dose: 4 mg Pantoprazole Sodium (Protonix Inj) 40 mg IVP DAILY [facility] Last Admin: 09/21/18 09:18 Dose: 40 mg - Labs Labs: 09/22/18 07:45 09/22/18 07:45 PT 12.3 SECONDS (9.4-12.5) 09/21/18 07:20 INR 1.07 09/21/18 07:20 APTT 23.8 Seconds (25.1-36.5) L 09/21/18 07:20 - Constitutional Appears: No Acute Distress - Head Exam Head Exam: NORMOCEPHALIC - Eye Exam Eye Exam: EOMI, Normal appearance - Respiratory Exam Respiratory Exam: NORMAL BREATHING PATTERN - Cardiovascular Exam Cardiovascular Exam: +S1, +S2 - GI/Abdominal Exam GI & Abdominal Exam: Soft, Tenderness - Neurological Exam Neurological Exam: Alert, Awake, Oriented x3 - Psychiatric Exam Psychiatric exam: Normal Mood - Skin Skin Exam: Dry, Intact, Warm Assessment and Plan - Assessment and Plan (Free Text) Assessment: 68F w/ perforated diverticula s/p IR drain site with failure of conservative therapy, s/p Sandra's procedure POD 1 Plan: Monitor bowel function CLD IVF ABx per ID Analgesics prn Anti-emetic prn DVT ppx OOB to chair Encourage incentive spirometer use D/w Dr. Margarito Carrillo PGY3
--- NOTE | 2018-09-22 11:58 | PN ---
DATE: 09/22/2018 SUBJECTIVE: She had a surgery yesterday. They did a hemicolectomy and a colostomy. It went very well the surgery team says and the plan is to reverse the colostomy when she gets back to [place] in 2 to 3 months which is good thing. She is currently on Dilaudid for pain, heparin, Lidoderm, Lopressor, Lotrisone, Norvasc, potassium replacement, Protonix, Toradol for pain, Tylenol, she is on vancomycin IV, Zofran and Zosyn IV. She is resting comfortably in bed. She understands the procedure and about the plan. She is upset about the colostomy, but understands why. I did discuss this with her with a vehicle mechanic. I answered many questions from her and the . PHYSICAL EXAMINATION: VITAL SIGNS: She has a 98.7 temperature, 74 pulse, 167/71 blood pressure, 18 respiratory rate, 93% O2 sat on room air. HEAD: Atraumatic, normocephalic. Very alert. Decrease in pain, some surgical pain, but not as bad as it was before the surgery. HEART: Regular rate. LUNGS: Decreased breath sounds, poor inspiration. There is incentive spirometry at bedside. I asked her to please use that every hour 10 breaths to keep her away from pneumonias. She will do that. The will make sure that he said. ABDOMEN: Has a colostomy and a drain, but it is soft. Decreased bowel sounds, but present. EXTREMITIES: No edema. LABORATORY DATA: She has a white count of 18.5 status post surgery, that should come down. Hemoglobin 10.9, hematocrit 33.7, platelets of 352. She has 139 sodium, potassium 4, BUN is 12, creatinine 1.2, GFR is 45, sugar is 110, calcium is 7.8, phosphorus 3.9, magnesium 1.6, total bili is 1.9, AST is 31, ALT is 33, alk phos 76, total protein is 5.4. Overall, I am glad she had the surgery done now and here. They took out intestines and had stool in it still and it was draining through the drain and stool, so that is out of her system now and hopefully, she will continue to improve and the next plan will be when capable, we will transfer her back to [place] through her insurance when we get the okay from the Surgery and Infectious Disease. She is status post colectomy and hemicolectomy and colostomy for diverticulitis, perforated colon, abscesses. Bethel Vides DO
[2018-09-22] MEDS: Lidocaine 5% Patch TD SCH (12:30)
--- NOTE | 2018-09-22 15:36 | PN ---
DATE: 09/22/2018 CARDIOLOGY FOLLOWUP SUBJECTIVE: The patient status post abdominal surgery. She is awake, alert. No shortness of breath. No chest pain. PHYSICAL EXAMINATION: VITAL SIGNS: Blood pressure 157/70. NECK: Negative JVD. LUNGS: Without rales. HEART: Reveals S1, S2. EXTREMITIES: Without edema. LABORATORY DATA: Hemoglobin is 10.9, white count is up to 18,000. Chemistries, BUN and creatinine unremarkable. The bilirubin is 1.9. IMPRESSION: 1. Abdominal abscess. 2. Hypertension. 3. Hyperbilirubinemia. 4. Abdominal pain from her surgery. PLAN: Given these findings, the patient is currently on Norvasc for her blood pressure. She is able to tolerate the medications. Adequate pain medications being given. Theo Maxwell MD
--- NOTE | 2018-09-22 16:10 | CP.PCM.PN ---
Subjective - Date & Time of Evaluation Date of Evaluation: 09/22/18 Time of Evaluation: 08:40 - Subjective Subjective: Tolerated surgery yesterday, no fevers, not in distress, starting clear liquids right now, no nausea currently. Objective - Vital Signs/Intake and Output Vital Signs (last 24 hours): Temp Pulse Resp BP Pulse Ox 98.6 F 78 18 160/80 H 97 09/21/18 16:45 09/21/18 16:45 09/21/18 16:45 09/21/18 16:45 09/21/18 16:45 Intake and Output: 09/21/18 09/21/18 06:59 18:59 Intake Total 580 Output Total 55 25 Balance 525 -25 - Medications Medications: Current Medications Acetaminophen (Tylenol 325mg Tab) 650 mg PO Q6H PRN PRN Reason: Fever >100.4 F Last Admin: 09/13/18 16:07 Dose: 650 mg Amlodipine Besylate (Norvasc) 5 mg PO DAILY [facility] Last Admin: 09/21/18 09:18 Dose: 5 mg Betamethasone/Clotrimazole (Lotrisone) 0 gm TOP 2200 [facility] Last Admin: 09/20/18 23:09 Dose: Not Given Heparin Sodium (Porcine) (Heparin) 5,000 units SC Q8 [facility]; Protocol Last Admin: 09/20/18 22:23 Dose: Not Given Hydromorphone HCl (Dilaudid) 0.5 mg IVP Q3 PRN PRN Reason: Pain, moderate (4-7) Last Admin: 09/21/18 08:04 Dose: 0.5 mg Piperacillin Sod/Tazobactam Sod (Zosyn 4.5 Gm In Ns 100ml) 4.5 gm in 100 mls @ 25 mls/hr IVPB Q8 [facility]; Protocol Stop: 09/22/18 15:15 Last Admin: 09/21/18 13:06 Dose: 25 mls/hr Potassium Chloride/Dextrose/Sod Cl (Potassium Chl 40 Meq In D5-1/2ns) 1,000 mls @ 110 mls/hr IV .Q9H6M [facility] Last Admin: 09/21/18 11:27 Dose: 110 mls/hr Vancomycin HCl (Vancomycin 1gm) 1 gm in 250 mls @ 167 mls/hr IVPB Q12H [facility]; Protocol Last Admin: 09/21/18 13:05 Dose: Not Given Lidocaine (Lidoderm) 1 ea TD DAILY [facility] Last Admin: 09/21/18 09:29 Dose: 1 ea Metoprolol Tartrate (Lopressor) 25 mg PO BID [facility] Last Admin: 09/21/18 09:20 Dose: Not Given Ondansetron HCl (Zofran Inj) 4 mg IVP Q4H PRN PRN Reason: Nausea/Vomiting Last Admin: 09/17/18 18:08 Dose: 4 mg Pantoprazole Sodium (Protonix Inj) 40 mg IVP DAILY [facility] Last Admin: 09/21/18 09:18 Dose: 40 mg - Labs Labs: 09/21/18 07:20 09/21/18 07:20 PT 12.3 SECONDS (9.4-12.5) 09/21/18 07:20 INR 1.07 09/21/18 07:20 APTT 23.8 Seconds (25.1-36.5) L 09/21/18 07:20 - Constitutional Appears: Chronically Ill - Head Exam Head Exam: NORMAL INSPECTION - Respiratory Exam Respiratory Exam: Decreased Breath Sounds - Cardiovascular Exam Cardiovascular Exam: +S1, +S2 - GI/Abdominal Exam GI & Abdominal Exam: Soft. absent: Tenderness Additional comments: dressings in place Assessment and Plan - Assessment and Plan (Free Text) Plan: Assessment Sepsis from severe sigmoid diverticulitis with diverticular abscess S/P R-guided drainage POD #8, showing E. faecium (resistant to Ampicillin but sensitive to Vancomycin) - S/P ex-lap and Sandra procedure POD #1 history of breast cancer S/P right breast partial mastectomy HTN dyslipidemia history of cecal volvulus S/P bowel resection Plan continue Zosyn and will change Vancomycin to Daptomycin for the E. faecium since there is mild renal insufficiency today; it was resistant to Ampicillin but sensitive to Vancomycin will continue to monitor clinically follow up OR cultures
[2018-09-22] MEDS ORDERED: DAPTOmycin 500 mg Inj (Cubicin) IV SCH (16:15)
[2018-09-22] MEDS: Potassium Ch 20mEq in D5-1/2NS 1,000 ML IV SCH (18:48)
[2018-09-22] MEDS: Clotrimazole/Betamethasone Cream(15 gm) TOP SCH (23:14)
[2018-09-23] MEDS: Potassium Ch 20mEq in D5-1/2NS 1,000 ML IV SCH ×2 (05:18→17:51)
[2018-09-23 07:08] LABS: HEMOGLOBIN 10.7 g/dL (12.0-16.0); MEAN CELL VOLUME 97.6 fl (80.0-105.0); MEAN CORPUSCULAR HEMOGLOBIN 32.3 pg (25.0-35.0); MEAN CORPUSCULAR HGB CONC 33.1 g/dl (31.0-37.0); MEAN PLATELET VOLUME 8.9 fl (7.0-11.0); RBC 3.31 10^6/uL (3.5-6.1); RED CELL DISTRIBUTION WIDTH 13.5 % (11.5-14.5); WHITE BLOOD COUNT 13.4 10^3/uL (4.5-11.0)
[2018-09-23 07:22] LABS: ALB/GLOB RATIO 0.9 (1.1-1.8); ALBUMIN 2.8 g/dL (3.0-4.8); CALCIUM 8.1 mg/dL (8.4-10.5)
--- NOTE | 2018-09-23 08:49 | PN ---
DATE: 09/23/2018 SUBJECTIVE: [place]. She is from [place]. She had a very rough go here. She had very bad infected intestines with abscesses. She is status post right hemicolectomy and colostomy placement. She is 25 hours postop in bed, a little bit of pain, getting a ORDER CHECKER pump, but she looks stronger and I think she is improving. She is on hydralazine, daptomycin IV, hydromorphone for pain, heparin, Lidoderm patch, metoprolol, betamethasone, clotrimazole for fungal infection, Norvasc, potassium replacement, Protonix, Tylenol and Zofran. She is on a clear diet and she is starting to drink it and doing well. PHYSICAL EXAMINATION: VITAL SIGNS: She has a 98 temp, 88 pulse, 149/80 blood pressure, 20 respiratory rate, 96% O2 sat. T-max was 99.4 last night. HEENT: Head is atraumatic, normocephalic. She is very alert, smiling, talking, looks more pleasant, not as uncomfortable few days. Throat is moist. HEART: Regular rate. LUNGS: Decreased breath sounds, but clear. I encouraged her to use incentive spirometry every hour, 10 breaths. She understands that. The on top of her making sure she is doing that. ABDOMEN: Soft. Decreased bowel sounds. The colostomy is in place, looks clean. There is a drain in place. EXTREMITIES: No edema. LABORATORY DATA: She has a 13.4 white count, better, came down from 18.5, she is improving; 10.7 hemoglobin; 32.3 hematocrit with 372 platelets. She has a 136 sodium; potassium 3.5, I replaced the potassium; BUN 17; creatinine 2.3 that bumped up after surgery, it was 1.2. She is on IV fluids at 100 mL an hour. I am hoping that it will come down. Sugar is 146, calcium is 8.1. Total bili is 1.4, coming down also from 1.9. AST is 32, ALT is 36, alk phos 76, total protein 5.7. ASSESSMENT AND PLAN: Considering everything she has been through, I think she is doing fairly well. I do think this is the first day that she might be turning the corner. I am hoping to get her out of bed to chair, make sure she is eating well. Continue with aggressive treatment and care by Surgery, Infectious Disease. She had sepsis, severe sigmoid diverticulitis with 2 abscesses with a drain. IV antibiotics. She is status post exploratory laparotomy and Sandra procedure with colostomy. We will continue with aggressive treatment and care. Bethel Vides DO MTDD
[2018-09-23] MEDS: HYDROmorphone 0.5 mg/0.5 ml ISec IVP PRN ×2 (10:02→17:52)
[2018-09-23] MEDS: Lidocaine 5% Patch TD SCH (10:03)
[2018-09-23] MEDS ORDERED: Oxycodone/Acetaminophen 10/325 mg Tab PO PRN (12:00)
[2018-09-23] MEDS ORDERED: oxyCODONE 10 mg Immediate Release Tab PO PRN (12:02)
--- NOTE | 2018-09-23 12:06 | CP.PCM.PN ---
Subjective - Date & Time of Evaluation Date of Evaluation: 09/23/18 Time of Evaluation: 12:03 - Subjective Subjective: Mitra Juarez, PGY-1, Surgery Progress Note for Dr. Pimentel Patient seen and examined at bedside. Patient reports worsened stabbing ab dominal pain and decreased urination but has been tolerating liquids. Patient denies nausea and vomiting and has had adequate ostomy output. Objective - Vital Signs/Intake and Output Vital Signs (last 24 hours): Temp Pulse Resp BP Pulse Ox 98 F 88 20 145/82 96 09/23/18 06:00 09/23/18 06:00 09/23/18 06:00 09/23/18 10:03 09/23/18 06:00 Intake and Output: 09/23/18 09/23/18 06:59 18:59 Output Total 25 Balance -25 - Medications Medications: Current Medications Acetaminophen (Tylenol 325mg Tab) 650 mg PO Q6H PRN PRN Reason: Fever >100.4 F Last Admin: 09/22/18 22:57 Dose: 650 mg Amlodipine Besylate (Norvasc) 5 mg PO DAILY [facility] Last Admin: 09/23/18 10:03 Dose: 5 mg Betamethasone/Clotrimazole (Lotrisone) 0 gm TOP 2200 [facility] Last Admin: 09/22/18 23:14 Dose: 1 units Heparin Sodium (Porcine) (Heparin) 5,000 units SC Q8 [facility]; Protocol Last Admin: 09/23/18 05:19 Dose: 5,000 units Hydromorphone HCl (Dilaudid) 0.5 mg IVP Q3 PRN PRN Reason: Pain, severe (8-10) Potassium Chloride/Dextrose/Sod Cl (Potassium Chl 20 Meq In D5-1/2ns) 1,000 mls @ 100 mls/hr IV .Q10H [facility] Last Admin: 09/23/18 05:18 Dose: 100 mls/hr Daptomycin 490 mg/ Sodium (Chloride) 100 mls @ 200 mls/hr IV QOTHERDAY [facility]; Protocol Stop: 09/30/18 10:01 Last Admin: 09/23/18 10:58 Dose: 200 mls/hr Lidocaine (Lidoderm) 1 ea TD DAILY [facility] Last Admin: 09/23/18 10:03 Dose: 1 ea Metoprolol Tartrate (Lopressor) 25 mg PO BID [facility] Last Admin: 09/23/18 10:03 Dose: 25 mg Ondansetron HCl (Zofran Inj) 4 mg IVP Q4H PRN PRN Reason: Nausea/Vomiting Last Admin: 09/17/18 18:08 Dose: 4 mg Pantoprazole Sodium (Protonix Inj) 40 mg IVP DAILY [facility] Last Admin: 09/23/18 10:03 Dose: 40 mg - Labs Labs: 09/23/18 06:45 09/23/18 06:45 PT 12.3 SECONDS (9.4-12.5) 09/21/18 07:20 INR 1.07 09/21/18 07:20 APTT 23.8 Seconds (25.1-36.5) L 09/21/18 07:20 - Constitutional Appears: Well, Non-toxic, No Acute Distress - Head Exam Head Exam: ATRAUMATIC, NORMAL INSPECTION, NORMOCEPHALIC - Eye Exam Eye Exam: EOMI Pupil Exam: PERRL - ENT Exam ENT Exam: Mucous Membranes Moist - Respiratory Exam Respiratory Exam: Clear to Ausculation Bilateral, NORMAL BREATHING PATTERN - Cardiovascular Exam Cardiovascular Exam: REGULAR RHYTHM - GI/Abdominal Exam GI & Abdominal Exam: Soft, Tenderness, Normal Bowel Sounds Additional comments: ostomy and drain intact, nonerythematous, clean, incision clean and intact - Extremities Exam Extremities Exam: Full ROM - Neurological Exam Neurological Exam: Alert, Awake, CN II-XII Intact, Oriented x3 - Skin Skin Exam: Dry, Intact Assessment and Plan - Assessment and Plan (Free Text) Assessment: 68 year old female with past medical history of hypertension and breast cancer presents with abdominal pain. Patient was found to have diverticulitis with phlegmon and free air on abdominal CT s/p Sandra's resection day 2. Plan: STOCKROOM ATTENDANT pump stopped and oxycodone started for optimal pain control. Continue antibiotics as per ID. OOB Incentive spirometry 10 times an hour Progress diet to full liquid diet. DVT prophylaxis with heparin. GI prophylaxis with protonix. Will discuss plan with Dr. Pimentel.
--- NOTE | 2018-09-23 12:46 | CP.PCM.PN ---
Subjective - Date & Time of Evaluation Date of Evaluation: 09/23/18 Time of Evaluation: 08:20 - Subjective Subjective: No fevers, not in distress, abdominal pain is slowly improving, no nausea. Objective - Vital Signs/Intake and Output Vital Signs (last 24 hours): Temp Pulse Resp BP Pulse Ox 98.2 F 99 H 16 158/75 H 96 09/22/18 14:00 09/22/18 14:00 09/22/18 14:00 09/22/18 14:00 09/22/18 14:00 Intake and Output: 09/22/18 09/22/18 06:59 18:59 Intake Total 0 Output Total 1135 Balance -1135 - Medications Medications: Current Medications Acetaminophen (Tylenol 325mg Tab) 650 mg PO Q6H PRN PRN Reason: Fever >100.4 F Last Admin: 09/13/18 16:07 Dose: 650 mg Amlodipine Besylate (Norvasc) 5 mg PO DAILY [facility] Last Admin: 09/22/18 12:27 Dose: 5 mg Betamethasone/Clotrimazole (Lotrisone) 0 gm TOP 2200 [facility] Last Admin: 09/20/18 23:09 Dose: Not Given Daptomycin (Cubicin) 490 mg IV Q24H [facility]; Protocol Stop: 09/27/18 16:16 Diphenhydramine HCl (Benadryl) 25 mg IVP Q4H PRN PRN Reason: Itching / Pruritus Stop: 09/22/18 23:59 Heparin Sodium (Porcine) (Heparin) 5,000 units SC Q8 [facility]; Protocol Last Admin: 09/22/18 14:18 Dose: Not Given Hydromorphone HCl (Dilaudid) 0.5 mg IVP Q3 PRN PRN Reason: Pain, moderate (4-7) Last Admin: 09/21/18 08:04 Dose: 0.5 mg Hydromorphone HCl (Dilaudid 0.2 Mg/Ml Shank Cementer Hand) 25 mls @ 0 mls/hr IV PRN PRN; Protocol PRN Reason: TONE REGULATOR PER MD ORDER Stop: 09/22/18 23:59 Last Admin: 09/21/18 23:29 Dose: 1 mls/hr Potassium Chloride/Dextrose/Sod Cl (Potassium Chl 20 Meq In D5-1/2ns) 1,000 mls @ 100 mls/hr IV .Q10H [facility] Ketorolac Tromethamine (Toradol) 15 mg IM Q6 [facility] Stop: 09/23/18 06:01 Last Admin: 09/22/18 12:29 Dose: 15 mg Lidocaine (Lidoderm) 1 ea TD DAILY [facility] Last Admin: 09/22/18 12:30 Dose: 1 ea Metoprolol Tartrate (Lopressor) 25 mg PO BID [facility] Last Admin: 09/22/18 12:30 Dose: 25 mg Ondansetron HCl (Zofran Inj) 4 mg IVP Q4H PRN PRN Reason: Nausea/Vomiting Last Admin: 09/17/18 18:08 Dose: 4 mg Pantoprazole Sodium (Protonix Inj) 40 mg IVP DAILY [facility] Last Admin: 09/22/18 12:29 Dose: 40 mg - Labs Labs: 09/22/18 07:45 09/22/18 07:45 PT 12.3 SECONDS (9.4-12.5) 09/21/18 07:20 INR 1.07 09/21/18 07:20 APTT 23.8 Seconds (25.1-36.5) L 09/21/18 07:20 - Constitutional Appears: Chronically Ill - Head Exam Head Exam: NORMAL INSPECTION - Respiratory Exam Respiratory Exam: Decreased Breath Sounds - Cardiovascular Exam Cardiovascular Exam: +S1, +S2 - GI/Abdominal Exam GI & Abdominal Exam: Soft. absent: Tenderness Assessment and Plan - Assessment and Plan (Free Text) Plan: Assessment Sepsis from severe sigmoid diverticulitis with diverticular abscess S/P R-guided drainage POD #9, showing E. faecium (resistant to Ampicillin but sensitive to Vancomycin) - S/P ex-lap and Sandra procedure POD #2 acute renal failure, multifactorial history of breast cancer S/P right breast partial mastectomy HTN dyslipidemia history of cecal volvulus S/P bowel resection Plan continue Zosyn and renally-adjusted Daptomycin for the E. faecium; it was resistant to Ampicillin but sensitive to Vancomycin will continue to monitor clinically follow up OR cultures and will also monitor kidney function - will hold off on using Vancomycin because of the acute renal insufficiency
[2018-09-23] MEDS ORDERED: Potassium Chloride 20 mEq ER Tab PO ONE (14:02)
--- NOTE | 2018-09-23 15:21 | CARD ---
APPROVED REPORT Date of service: 09/16/2018 EXAM: Two-dimensional and M-mode echocardiogram with Doppler and color Doppler. INDICATION LVH 2D DIMENSIONS Left Atrium (2D)3.5 (1.6-4.0cm)IVSd0.9 (0.7-1.1cm) LVDd3.8 (3.9-5.9cm)PWd1.0 (0.7-1.1cm) LVDs2.9 (2.5-4.0cm)FS (%) 25.1 % LVEF (%)50.4 (>50%) M-Mode DIMENSIONS Aortic Root2.50 (2.2-3.7cm)Aortic Cusp Exc.1.50 (1.5-2.0cm) Aortic Valve AoV Peak Kdvioetq778.0cm/Ricci Peak GR.5mmHg Mitral Valve MV E Vpkfcjzo49.5cm/sMV A Tmnzoeka82.8cm/sE/A ratio0.7 TDI Lateral E' Peak V6.04cm/sMedial E' Peak V6.04cm/sE/Lateral E'10.5 E/Medial E'10.5 Pulmonary Valve PV Peak Rltfumme99.1cm/sPV Peak Grad.2mmHg Tricuspid Valve TR Peak Dnfsendm220ae/sRAP [id number] Peak Gr.15mmHg [id number] LEFT VENTRICLE Low normal LV systolic function RIGHT VENTRICLE The right ventricle is normal size. ATRIA The left atrium size is normal. The right atrium size is normal. AORTIC VALVE The aortic valve is thickened but opens well. MITRAL VALVE The mitral valve is thickened but opens well. Mitral regurgitation is trace to mild. TRICUSPID VALVE The tricuspid valve leaflets are thickened , but open well. There is trace to mild tricuspid regurgitation. There is no pulmonary hypertension. PULMONIC VALVE The pulmonic valve is not well visualized. PERICARDIAL EFFUSION There is no pericardial effusion. <Conclusion> Low normal LV function Mild MR and TR No pulmonary hypertension
[2018-09-23 17:37] LABS: CALCIUM 8.4 mg/dL (8.4-10.5)
[2018-09-23] MEDS: Clotrimazole/Betamethasone Cream(15 gm) TOP SCH (22:53)
[2018-09-24] MEDS: Sodium Chloride 0.9% 1,000 ML IV SCH ×2 (04:58→18:05)
[2018-09-24] MEDS: HYDROmorphone 0.5 mg/0.5 ml ISec IVP PRN (04:58)
[2018-09-24 07:20] LABS: HEMOGLOBIN 10.5 g/dL (12.0-16.0); MEAN CELL VOLUME 98.2 fl (80.0-105.0); MEAN CORPUSCULAR HEMOGLOBIN 32.2 pg (25.0-35.0); MEAN CORPUSCULAR HGB CONC 32.8 g/dl (31.0-37.0); MEAN PLATELET VOLUME 9.1 fl (7.0-11.0); RBC 3.26 10^6/uL (3.5-6.1); RED CELL DISTRIBUTION WIDTH 13.4 % (11.5-14.5)
[2018-09-24 08:42] LABS: ALB/GLOB RATIO 0.9 (1.1-1.8); CALCIUM 8.3 mg/dL (8.4-10.5)
--- NOTE | 2018-09-24 09:47 | PN ---
DATE: 09/24/2018 SUBJECTIVE: I saw her resting comfortably this morning in her bed. IV antibiotics and IV fluids are running. She is on daptomycin, Dilaudid, heparin, Lidoderm patch, Lopressor, Lotrisone, Norvasc, oxycodone, Protonix, IV fluids, Tylenol and Zofran. She recently had a right hemicolectomy with a colostomy. There is a drain in place which was not draining that much anymore which is good. She is alert. She is comfortable. She is talking. I spoke with her through a tractor sweeper driver. PHYSICAL EXAMINATION: VITAL SIGNS: She has a 98.7 temperature, 89 pulse 176/86 blood pressure, 20 respiratory rate, 98% O2 sat on room air. HEAD: Atraumatic, normocephalic. HEART: Regular rate. LUNGS: Decreased breath sounds, but clear. ABDOMEN: Soft. Decreased bowel sounds are present. She has a colostomy in a drain. EXTREMITIES: No edema. LABORATORY DATA: 12 white count, it is coming down, 10.5 hemoglobin, 32 hematocrit with 49 platelets. She has a 138 sodium, potassium 4, BUN 60, creatinine 2.4, still little bit high. I will call in Renal. GFR is 20, sugar is 130, calcium is 8.3, phosphorous 2.6, magnesium 2. Total bili is 0.9, AST is 31, ALT is 27, alk phos 97, total protein is 6.2. I am concerned that her kidney functions are still little bit elevated. We will continue with aggressive treatment and care. She has seen by Infectious Disease, Surgery, Cardiology and hopefully, the kidney functions will improve with the IV fluids, will see what they are tomorrow and she is here for diverticulitis, abscess in the intestines. Bethel Vides DO
[2018-09-24] MEDS: Lidocaine 5% Patch TD SCH (09:50)
--- NOTE | 2018-09-24 11:41 | CP.PCM.PN ---
Subjective - Date & Time of Evaluation Date of Evaluation: 09/24/18 Time of Evaluation: 06:45 - Subjective Subjective: Patient seen and examined. No acute events over night. Passing flatus. Stoma is pink and patent. No other complaints. Objective - Vital Signs/Intake and Output Vital Signs (last 24 hours): Temp Pulse Resp BP Pulse Ox 98.7 F 89 20 176/86 H 98 09/24/18 06:00 09/24/18 09:50 09/24/18 06:00 09/24/18 09:51 09/24/18 06:00 Intake and Output: 09/24/18 09/24/18 06:59 18:59 Output Total 21 Balance -21 - Medications Medications: Current Medications Acetaminophen (Tylenol 325mg Tab) 650 mg PO Q6H [facility] Last Admin: 09/24/18 11:34 Dose: 650 mg Amlodipine Besylate (Norvasc) 10 mg PO DAILY [facility] Last Admin: 09/24/18 09:51 Dose: 10 mg Betamethasone/Clotrimazole (Lotrisone) 0 gm TOP 2200 [facility] Last Admin: 09/23/18 22:53 Dose: 1 units Heparin Sodium (Porcine) (Heparin) 5,000 units SC Q8 [facility]; Protocol Last Admin: 09/24/18 05:13 Dose: 5,000 units Hydralazine HCl (Apresoline) 25 mg PO Q4 PRN PRN Reason: Other Hydromorphone HCl (Dilaudid) 0.5 mg IVP Q3 PRN PRN Reason: Pain, severe (8-10) Last Admin: 09/24/18 04:58 Dose: 0.5 mg Daptomycin 490 mg/ Sodium (Chloride) 100 mls @ 200 mls/hr IV QOTHERDAY [facility]; Protocol Stop: 09/30/18 10:01 Last Admin: 09/23/18 10:58 Dose: 200 mls/hr Sodium Chloride (Sodium Chloride 0.9%) 1,000 mls @ 100 mls/hr IV .Q10H [facility] Last Admin: 09/24/18 04:58 Dose: 100 mls/hr Lidocaine (Lidoderm) 1 ea TD DAILY [facility] Last Admin: 09/24/18 09:50 Dose: 1 ea Metoprolol Tartrate (Lopressor) 50 mg PO BID [facility] Last Admin: 09/24/18 11:32 Dose: Not Given Ondansetron HCl (Zofran Inj) 4 mg IVP Q4H PRN PRN Reason: Nausea/Vomiting Last Admin: 09/17/18 18:08 Dose: 4 mg Oxycodone HCl (Oxycodone Immediate Release Tab) 10 mg PO Q6H PRN PRN Reason: Pain, moderate (4-7) Pantoprazole Sodium (Protonix Ec Tab) 40 mg PO ACB [facility] - Labs Labs: 09/24/18 07:00 09/24/18 07:00 PT 12.3 SECONDS (9.4-12.5) 09/21/18 07:20 INR 1.07 09/21/18 07:20 APTT 23.8 Seconds (25.1-36.5) L 09/21/18 07:20 - Constitutional Appears: No Acute Distress - Head Exam Head Exam: NORMOCEPHALIC - Eye Exam Eye Exam: EOMI, Normal appearance - ENT Exam ENT Exam: Mucous Membranes Moist - Cardiovascular Exam Cardiovascular Exam: +S1, +S2 - GI/Abdominal Exam GI & Abdominal Exam: Soft, Tenderness - Neurological Exam Neurological Exam: Alert, Awake, Oriented x3 - Psychiatric Exam Psychiatric exam: Normal Mood - Skin Skin Exam: Dry, Intact, Warm Assessment and Plan - Assessment and Plan (Free Text) Assessment: 68F w/ perforated diverticula s/p IR drain site with failure of conservative therapy, s/p Sandra's procedure POD 3 Plan: HHD ABx per ID Analgesics prn Anti-emetic prn DVT ppx OOB to chair Encourage incentive spirometer use PT D/w Dr. Margarito Carrillo PGY3
--- NOTE | 2018-09-24 16:08 | CP.PCM.CON ---
History of Present Illness - History of Present Illness History of Present Illness: Nephrology Consultation Note: Assessment: Stable Acute Kidney Injury (N17.9) likely due to ATN and mulifactorial due to current illness/sepsis/hemodynamic injury/contrast expose Anemia hypertension (years) chronic leg swelling and breast lumpectomy diverticulitis with pelvic abscess s/p IR guided drainage and now s/p Ex lap and maria procedure Plan No acute need for renal replacement therapy at this time. anticipate spontaneous renal function improvement over next few days/week Hypertension control with meds as ordered. Maintain hemodynamics stable. Avoid hypotension. Patient not on ACEI/ARB due to recent DIETER Monitor Input/Output, daily weights and renal function with basic metabolic panel continue with IVF supplement lytes as needed asked RN to check bladder scan to r/o retention Dose meds/antibiotics for reduced GFR. Avoid fleets enema/magnesium based laxatives. Avoid nephrotoxins/NSAIDs/ iodinated contrast (unless needed emergently) Glycemic control Further work up/management as per primary team Thanks for allowing me to participate in care of your patient. Will follow patient with you. Please call if any Qs Dr Pablo Johnson Office: [phone] Chief Complaint; pain abdomen Reason for consult: Acute Kidney Injury HPI: Pt is a 68 F with hx of hypertension (years) chronic leg swelling and breast lumpectomy, on cruise from [facility] presented with complaints of pain abdomen, found to have diverticulitis with pelvic abscess s/p IR guided drainage and now s/p Ex lap and maria procedure. renal consult for DIETER eval Denies OTC/herbal meds or NSAIDs Noted recent iodinated contrast exposure done on 09/18/18 and surgery done on 09/21/18. No obvious episodes of low BP. intra-op SBP 120-140s and DBP 50-60s ROS: used spanish interpreter/translator services Cardiovascular: No chest pain. Pulmonary: No shortness of breath Gastrointestinal: improved abdominal pain No nausea. No vomiting. Genitourinary: No pain while urinating. Denies blood in urine. All other negative except as mentioned in HPI Physical Examination: General Appearance: Comfortable, in no acute respiratory distress, co-operative . Vitals reviewed and noted as below Head; Atraumatic, normocephalic ENT: no ulcers no thrush. Tongue is midline. Oropharynx: no rash or ulcers. EYES: Pupils are equal, round and reactive to light accommodation. Eye muscles and extraocular movement intact. Sclera is anicteric. Neck; supple no lymphadenopathy, no thyromegaly or bruit Lungs: Normal respiratory rate/effort. Breath sounds bilateral equal and clear Heart: Normal rate. s1s2 normal. No rub or gallop. Extremities: non pitting leg edema. No varicose veins Neurological: Patient is alert, awake and oriented to person, place and time. No focal deficit. Strength bilateral appropriate and equal Skin: Warm and dry. Normal turgor. No rash. Palpitation: Normal elasticity for age Abdomen: Abdomen is soft. Bowel sounds +. There is abdominal tenderness with some guarding no rigidity no organomegaly. crystal + Psych: normal insight and normal affect/mood MSK: no joint tenderness or swelling. Digits and nails normal, no deformity : kidney or bladder not palpable but limited exam Labs/imaging reviewed. Past medical history, past surgical history, family history, social history, allergy reviewed and noted as below Family hx: no hx of CKD. Rest non-contributory renal imaging: WNL Past Patient History - Infectious Disease Hx of Infectious Diseases: None - Past Social History Smoking Status: Never Smoked - CARDIAC Hx Cardiac Disorders: Yes Hx Hypertension: Yes - HEMATOLOGICAL/ONCOLOGICAL Hx Blood Transfusions: No Hx Blood Transfusion Reaction: No - MUSCULOSKELETAL/RHEUMATOLOGICAL Hx Musculoskeletal Disorders: No - PSYCHIATRIC Hx Emotional Abuse: No Hx Physical Abuse: No Hx Substance Use: No - SURGICAL HISTORY Hx Surgeries: Yes (RT BREAST {CA} 22 YRS AGO/COLECTOMY/SPINE FUSION) - ANESTHESIA Hx Anesthesia Reactions: No Hx Malignant Hyperthermia: No Meds Allergies/Adverse Reactions: Allergies Allergy/AdvReac Type Severity Reaction Status Date / Time No Known Allergies Allergy Verified 09/13/18 01:12 EST - Medications Medications: Current Medications Acetaminophen (Tylenol 325mg Tab) 650 mg PO Q6H [facility] Last Admin: 09/24/18 11:34 Dose: 650 mg Amlodipine Besylate (Norvasc) 10 mg PO DAILY [facility] Last Admin: 09/24/18 09:51 Dose: 10 mg Betamethasone/Clotrimazole (Lotrisone) 0 gm TOP 2200 [facility] Last Admin: 09/23/18 22:53 Dose: 1 units Heparin Sodium (Porcine) (Heparin) 5,000 units SC Q8 [facility]; Protocol Last Admin: 09/24/18 05:13 Dose: 5,000 units Hydralazine HCl (Apresoline) 25 mg PO Q4 PRN PRN Reason: Other Hydromorphone HCl (Dilaudid) 0.5 mg IVP Q3 PRN PRN Reason: Pain, severe (8-10) Last Admin: 09/24/18 04:58 Dose: 0.5 mg Daptomycin 490 mg/ Sodium (Chloride) 100 mls @ 200 mls/hr IV QOTHERDAY [facility]; Protocol Stop: 09/30/18 10:01 Last Admin: 09/23/18 10:58 Dose: 200 mls/hr Sodium Chloride (Sodium Chloride 0.9%) 1,000 mls @ 100 mls/hr IV .Q10H [facility] Last Admin: 09/24/18 04:58 Dose: 100 mls/hr Lidocaine (Lidoderm) 1 ea TD DAILY [facility] Last Admin: 09/24/18 09:50 Dose: 1 ea Metoprolol Tartrate (Lopressor) 50 mg PO BID [facility] Last Admin: 09/24/18 11:32 Dose: Not Given Ondansetron HCl (Zofran Inj) 4 mg IVP Q4H PRN PRN Reason: Nausea/Vomiting Last Admin: 09/17/18 18:08 Dose: 4 mg Oxycodone HCl (Oxycodone Immediate Release Tab) 10 mg PO Q6H PRN PRN Reason: Pain, moderate (4-7) Pantoprazole Sodium (Protonix Ec Tab) 40 mg PO ACB [facility] Results - Vital Signs Recent Vital Signs: Last Vital Signs Temp 98.9 F 09/24/18 14:00 Pulse 79 09/24/18 14:00 Resp 20 09/24/18 14:00 BP 135/68 09/24/18 14:00 Pulse Ox 97 09/24/18 14:00 - Labs Result Diagrams: 09/24/18 07:00 09/24/18 07:00 Labs: Laboratory Results - last 24 hr 09/21/18 09/23/18 09/24/18 08:15 17:05 07:00 WBC 12.0 H RBC 3.26 L Hgb 10.5 L Hct 32.0 L MCV 98.2 MCH 32.2 MCHC 32.8 RDW 13.4 Plt Count 449 MPV 9.1 Sodium 136 Potassium 3.9 Chloride 103 Carbon Dioxide 26 Anion Gap 11 BUN 17 Creatinine 2.4 H Est GFR ( Amer) 24 Est GFR (Non-Af Amer) 20 Random Glucose 143 H Calcium 8.4 Phosphorus Magnesium Total Bilirubin AST ALT Alkaline Phosphatase Total Protein Albumin Globulin Albumin/Globulin Ratio Crossmatch See Detail 09/24/18 07:00 WBC RBC Hgb Hct MCV MCH MCHC RDW Plt Count MPV Sodium 138 Potassium 4.0 Chloride 107 Carbon Dioxide 25 Anion Gap 10 BUN 16 Creatinine 2.4 H Est GFR ( Amer) 24 Est GFR (Non-Af Amer) 20 Random Glucose 130 H Calcium 8.3 L Phosphorus 2.6 Magnesium 2.0 Total Bilirubin 0.9 AST 31 ALT 27 Alkaline Phosphatase 97 Total Protein 6.2 Albumin 3.0 Globulin 3.2 Albumin/Globulin Ratio 0.9 L Crossmatch
--- NOTE | 2018-09-24 21:51 | PN ---
DATE: 09/24/2018 SUBJECTIVE: The patient is in bed, in no acute distress, nontoxic. PHYSICAL EXAMINATION: VITAL SIGNS: Temperature is 98, blood pressure is 130/60, respiratory 20, heart rate of 79. HEENT: Unremarkable. NECK: Supple. LUNGS: Decreased breath sounds. HEART: Normal S1 and S2. ABDOMEN: Soft. LABORATORY DATA: Laboratory examination reveals a white count of 12,000 and hemoglobin of 10. Creatinine is 2.4. Urinalysis is noted. Toxicology is reviewed. Vancomycin trough of 23. Microbiology reveals Enterococcus faecium. The blood cultures are reported to be no growth. The Enterococcus is sensitive to vancomycin, sensitive to Zyvox, and resistant to ampicillin and penicillin resistant. The review of orders reveals the patient to be on daptomycin. ASSESSMENT AND PLAN: This is a 68-year-old female with sepsis with severe sigmoid diverticulitis and diverticular abscess, status post right guided drainage postoperative day #10 showing Enterococcus faecium; status post exploratory laparotomy and Sandra's procedure postoperative day #3; acute renal failure, multifactorial; history of breast cancer, status post right breast partial mastectomy; hypertension; dyslipidemia; history of cecal volvulus; on Zosyn and renally adjusted daptomycin. This is a [place] with a history of hypertension and acute renal failure. Zosyn is currently Zosyn at 2.25 g intravenously every 8 hours. We will follow with you. Nehemiah Parham MD
[2018-09-24] MEDS: Clotrimazole/Betamethasone Cream(15 gm) TOP SCH (22:37)
[2018-09-24] MEDS: Piperacillin/Tazobact 2.25gm 2.25 GM/100 ML BAG IVPB SCH (22:37)
[2018-09-25] MEDS: Piperacillin/Tazobact 2.25gm 2.25 GM/100 ML BAG IVPB SCH ×3 (06:20→23:10)
[2018-09-25 06:47] LABS: HEMOGLOBIN 10.2 g/dL (12.0-16.0); MEAN CELL VOLUME 98.1 fl (80.0-105.0); MEAN CORPUSCULAR HEMOGLOBIN 31.6 pg (25.0-35.0); MEAN CORPUSCULAR HGB CONC 32.2 g/dl (31.0-37.0); RBC 3.23 10^6/uL (3.5-6.1); RED CELL DISTRIBUTION WIDTH 13.3 % (11.5-14.5); WHITE BLOOD COUNT 8.3 10^3/uL (4.5-11.0)
[2018-09-25 07:43] LABS: ALB/GLOB RATIO 0.9 (1.1-1.8); ALBUMIN 2.8 g/dL (3.0-4.8); CALCIUM 8.4 mg/dL (8.4-10.5)
[2018-09-25] MEDS: Pantoprazole 40 mg EC Tab PO SCH (08:22)
--- NOTE | 2018-09-25 08:56 | CP.PCM.PN ---
Subjective - Date & Time of Evaluation Date of Evaluation: 09/25/18 Time of Evaluation: 08:56 - Subjective Subjective: Mitra Juarez, PGY-1, Surgery Progress Note for Dr. Pimentel Patient seen and examined at bedside. Patient denied any overnight events. Patient reports intermittent abdominal pain, dry mouth. Patient denies nausea and vomiting and has had adequate ostomy output. Objective - Vital Signs/Intake and Output Vital Signs (last 24 hours): Temp Pulse Resp BP Pulse Ox 98.6 F 103 H 20 133/68 98 09/25/18 06:00 09/25/18 06:00 09/25/18 06:00 09/25/18 06:00 09/25/18 06:00 Intake and Output: 09/25/18 09/25/18 06:59 18:59 Intake Total 240 Output Total 20 Balance 220 - Medications Medications: Current Medications Acetaminophen (Tylenol 325mg Tab) 650 mg PO Q6H [facility] Last Admin: 09/25/18 06:20 Dose: 650 mg Amlodipine Besylate (Norvasc) 10 mg PO DAILY [facility] Last Admin: 09/24/18 09:51 Dose: 10 mg Betamethasone/Clotrimazole (Lotrisone) 0 gm TOP 2200 [facility] Last Admin: 09/24/18 22:37 Dose: 1 units Heparin Sodium (Porcine) (Heparin) 5,000 units SC Q8 [facility]; Protocol Last Admin: 09/25/18 06:20 Dose: 5,000 units Hydralazine HCl (Apresoline) 25 mg PO Q4 PRN PRN Reason: Other Hydromorphone HCl (Dilaudid) 0.5 mg IVP Q3 PRN PRN Reason: Pain, severe (8-10) Last Admin: 09/24/18 04:58 Dose: 0.5 mg Daptomycin 490 mg/ Sodium (Chloride) 100 mls @ 200 mls/hr IV QOTHERDAY [facility]; Protocol Stop: 09/30/18 10:01 Last Admin: 09/23/18 10:58 Dose: 200 mls/hr Sodium Chloride (Sodium Chloride 0.9%) 1,000 mls @ 100 mls/hr IV .Q10H [facility] Last Admin: 09/24/18 18:05 Dose: 100 mls/hr Piperacillin Sod/Tazobactam Sod (Zosyn 2.25 Gm In 0.9% 100 Ml) 2.25 gm in 100 mls @ 100 mls/hr IVPB Q8 [facility]; Protocol Stop: 10/03/18 22:01 Last Admin: 09/25/18 06:20 Dose: 100 mls/hr Lidocaine (Lidoderm) 1 ea TD DAILY [facility] Last Admin: 09/24/18 09:50 Dose: 1 ea Metoprolol Tartrate (Lopressor) 50 mg PO BID [facility] Last Admin: 09/24/18 18:03 Dose: 50 mg Ondansetron HCl (Zofran Inj) 4 mg IVP Q4H PRN PRN Reason: Nausea/Vomiting Last Admin: 09/17/18 18:08 Dose: 4 mg Oxycodone HCl (Oxycodone Immediate Release Tab) 10 mg PO Q6H PRN PRN Reason: Pain, moderate (4-7) Pantoprazole Sodium (Protonix Ec Tab) 40 mg PO ACB [facility] Last Admin: 09/25/18 08:22 Dose: 40 mg - Labs Labs: 09/25/18 06:00 09/25/18 06:00 PT 12.3 SECONDS (9.4-12.5) 09/21/18 07:20 INR 1.07 09/21/18 07:20 APTT 23.8 Seconds (25.1-36.5) L 09/21/18 07:20 - Constitutional Appears: Well, Non-toxic, No Acute Distress - Head Exam Head Exam: ATRAUMATIC, NORMAL INSPECTION, NORMOCEPHALIC - Eye Exam Eye Exam: EOMI Pupil Exam: PERRL - ENT Exam ENT Exam: Mucous Membranes Moist - Respiratory Exam Respiratory Exam: Clear to Ausculation Bilateral, NORMAL BREATHING PATTERN - Cardiovascular Exam Cardiovascular Exam: REGULAR RHYTHM - GI/Abdominal Exam GI & Abdominal Exam: Soft, Normal Bowel Sounds. absent: Tenderness Additional comments: Incision clean and intact. Ostomy intact and harley intact. - Extremities Exam Extremities Exam: Full ROM - Neurological Exam Neurological Exam: Alert, Awake, CN II-XII Intact, Oriented x3 Assessment and Plan - Assessment and Plan (Free Text) Assessment: 68 year old female with past medical history of hypertension and breast cancer presents with abdominal pain. Patient was found to have diverticulitis with phlegmon and free air on abdominal CT s/p Sandra's resection day 4. Plan: Continue to monitor ostomy function. Pain control with oxycodone, dilaudid, and lidoderm. Continue with heart healthy diet. Replete electrolytes as needed. DVT prophylaxis with heparin. GI prophylaxis with protonix. Will discuss case with Dr. Pimentel.
[2018-09-25] MEDS: Lidocaine 5% Patch TD SCH (09:44)
--- NOTE | 2018-09-25 09:58 | PN ---
DATE: 09/25/2018 SUBJECTIVE: She is a nice young lady from [facility] and she was on a cruise ship. I had the media traffic manager with me and she is doing much better overall. She feels better overall. I discussed with Infectious Disease the plan is that Friday morning be the last antibiotics. She still has the drain in which is draining very scant. She is also eating better. They put her on a heart healthy diet. She stood up and took a few steps which is better. The drain is still in. I am hoping that could come out soon. MEDICATIONS: She is currently on Apresoline, Cubicin, Dilaudid, heparin, Lidoderm, Lopressor, Lotrisone, Norvasc, oxycodone, Protonix, Tylenol, Zofran and Zosyn. PHYSICAL EXAMINATION: GENERAL: She is smiling. She is comfortable, much better affect. VITAL SIGNS: She has a 98.6 temp, 103 pulse, 133/68 blood pressure, 20 respiratory rate and 98% O2 sat on room air. HEENT: Head is atraumatic, normocephalic. HEART: Regular rate. LUNGS: Decreased breath sounds, but clear. ABDOMEN: Soft. Positive bowel sounds. Colostomy in place, clean. Ryan-Galvez drain in place with a little bit of scant blood. EXTREMITIES: No edema, definitely improving. LABORATORY DATA: She has 8.3 white count, 10.2 hemoglobin, 31.7 hematocrit with 479 platelets; that is the lowest the white count has been, it is actually normal. Sodium 141, potassium 3.8. BUN 80, creatinine 2.3, it is starting to come down at 2.3, I want it under 2 if possible. GFR is 21, sugar 104, calcium 8.4. Total bili is 0.8, AST is 835, ALT is 24, alk phos 118, total protein 6. ASSESSMENT AND PLAN: She is being seen by numerous doctors, Infectious Disease, Renal, Surgery and Cardiology. Overall, she is improving. I will be talking to the doctor from [facility] today. I left a note that we feel that Friday would be a good day for her to fly. She is to have ostomy teaching, continue with pain meds, diet and hopefully she will do well. We will check her labs tomorrow. Bethel Vides DO [facility] # [phone]
--- NOTE | 2018-09-25 11:08 | CP.PCM.PN ---
Subjective - Date & Time of Evaluation Date of Evaluation: 09/24/18 Time of Evaluation: 08:25 - Subjective Subjective: Patient is feeling better, no fevers, nausea is improved, abdominal pain is improved, still with JOSE LUIS drain, starting to eat better. Objective - Vital Signs/Intake and Output Vital Signs (last 24 hours): Temp Pulse Resp BP Pulse Ox 98 F 88 20 145/82 96 09/23/18 06:00 09/23/18 06:00 09/23/18 06:00 09/23/18 10:03 09/23/18 06:00 Intake and Output: 09/23/18 09/23/18 06:59 18:59 Output Total 25 Balance -25 - Medications Medications: Current Medications Acetaminophen (Tylenol 325mg Tab) 650 mg PO Q6H [facility] Amlodipine Besylate (Norvasc) 5 mg PO DAILY [facility] Last Admin: 09/23/18 10:03 Dose: 5 mg Betamethasone/Clotrimazole (Lotrisone) 0 gm TOP 2200 [facility] Last Admin: 09/22/18 23:14 Dose: 1 units Heparin Sodium (Porcine) (Heparin) 5,000 units SC Q8 [facility]; Protocol Last Admin: 09/23/18 05:19 Dose: 5,000 units Hydromorphone HCl (Dilaudid) 0.5 mg IVP Q3 PRN PRN Reason: Pain, severe (8-10) Potassium Chloride/Dextrose/Sod Cl (Potassium Chl 20 Meq In D5-1/2ns) 1,000 mls @ 100 mls/hr IV .Q10H [facility] Last Admin: 09/23/18 05:18 Dose: 100 mls/hr Daptomycin 490 mg/ Sodium (Chloride) 100 mls @ 200 mls/hr IV QOTHERDAY [facility]; Protocol Stop: 09/30/18 10:01 Last Admin: 09/23/18 10:58 Dose: 200 mls/hr Lidocaine (Lidoderm) 1 ea TD DAILY [facility] Last Admin: 09/23/18 10:03 Dose: 1 ea Metoprolol Tartrate (Lopressor) 25 mg PO BID [facility] Last Admin: 09/23/18 10:03 Dose: 25 mg Ondansetron HCl (Zofran Inj) 4 mg IVP Q4H PRN PRN Reason: Nausea/Vomiting Last Admin: 11/08/18 18:08 Dose: 4 mg Oxycodone HCl (Oxycodone Immediate Release Tab) 10 mg PO Q6H PRN PRN Reason: Pain, moderate (4-7) Pantoprazole Sodium (Protonix Inj) 40 mg IVP DAILY [facility] Last Admin: 09/23/18 10:03 Dose: 40 mg - Labs Labs: 09/23/18 06:45 09/23/18 06:45 PT 12.3 SECONDS (9.4-12.5) 09/21/18 07:20 INR 1.07 09/21/18 07:20 APTT 23.8 Seconds (25.1-36.5) L 09/21/18 07:20 - Constitutional Appears: No Acute Distress, Chronically Ill - Head Exam Head Exam: NORMAL INSPECTION - Respiratory Exam Respiratory Exam: Decreased Breath Sounds - Cardiovascular Exam Cardiovascular Exam: +S1, +S2 - GI/Abdominal Exam GI & Abdominal Exam: Soft. absent: Tenderness Additional comments: JOSE LUIS drain in place Assessment and Plan - Assessment and Plan (Free Text) Plan: Assessment Sepsis from severe sigmoid diverticulitis with diverticular abscess S/P IR- guided drainage POD #1, showing E. faecium (resistant to Ampicillin but sensitive to Vancomycin) - S/P ex-lap and Sandra procedure POD #4 acute renal failure, multifactorial history of breast cancer S/P right breast partial mastectomy HTN dyslipidemia history of cecal volvulus S/P bowel resection Plan continue Zosyn and renally-adjusted Daptomycin for the E. faecium; it was resistant to Ampicillin but sensitive to Vancomycin - would recommend another 3 days of antibiotics - discussed with Dr. Vides and with the patient and patient acknowledges and understands will continue to monitor clinically fOR cultures are negative; continue to monitor kidney function - will hold off on using Vancomycin because of the acute renal insufficiency - renal function is slowly improving and Nephrology is following the patient
--- NOTE | 2018-09-25 13:27 | CP.PCM.PN ---
Subjective - Date & Time of Evaluation Date of Evaluation: 09/25/18 Time of Evaluation: 13:27 - Subjective Subjective: Nephrology Consultation Note: Assessment: Stable Acute Kidney Injury (N17.9) likely due to ATN and mulifactorial due to current i llness/sepsis/hemodynamic injury/contrast expose Anemia hypertension (years) chronic leg swelling and breast lumpectomy diverticulitis with pelvic abscess s/p IR guided drainage and now s/p Ex lap and maria procedure Plan No acute need for renal replacement therapy at this time. anticipate spontaneous renal function improvement over next few days/week Hypertension control with meds as ordered. Maintain hemodynamics stable. Avoid hypotension. Patient not on ACEI/ARB due to recent DIETER Monitor Input/Output, daily weights and renal function with basic metabolic panel continue with IVF supplement lytes as needed asked RN to check bladder scan to r/o retention which was done and negative Dose meds/antibiotics for reduced GFR. Avoid fleets enema/magnesium based laxatives. Avoid nephrotoxins/NSAIDs/ iodinated contrast (unless needed emergently) Glycemic control Further work up/management as per primary team Thanks for allowing me to participate in care of your patient. Will follow patient with you. Please call if any Qs Dr Pablo Johnson Office: [phone] Chief Complaint; pain abdomen Reason for consult: Acute Kidney Injury HPI: Pt is a 68 F with hx of hypertension (years) chronic leg swelling and breast lumpectomy, on cruise from [place] presented with complaints of pain abdomen, found to have diverticulitis with pelvic abscess s/p IR guided drainage and now s/p Ex lap and maria procedure. renal consult for DIETER eval Denies OTC/herbal meds or NSAIDs Noted recent iodinated contrast exposure done on 09/18/18 and surgery done on 09/21/18. No obvious episodes of low BP. intra-op SBP 120-140s and DBP 50-60s ROS: used dry cans back tender services Cardiovascular: No chest pain. Pulmonary: No shortness of breath Gastrointestinal: improved abdominal pain No nausea. No vomiting. Genitourinary: No pain while urinating. Denies blood in urine. All other negative except as mentioned in HPI Physical Examination: General Appearance: Comfortable, in no acute respiratory distress, co-operative . Vitals reviewed and noted as below Head; Atraumatic, normocephalic ENT: no ulcers no thrush. Tongue is midline. Oropharynx: no rash or ulcers. EYES: Pupils are equal, round and reactive to light accommodation. Eye muscles and extraocular movement intact. Sclera is anicteric. Neck; supple no lymphadenopathy, no thyromegaly or bruit Lungs: Normal respiratory rate/effort. Breath sounds bilateral equal and clear Heart: Normal rate. s1s2 normal. No rub or gallop. Extremities: non pitting leg edema. No varicose veins Neurological: Patient is alert, awake and oriented to person, place and time. No focal deficit. Strength bilateral appropriate and equal Skin: Warm and dry. Normal turgor. No rash. Palpitation: Normal elasticity for age Abdomen: Abdomen is soft. Bowel sounds +. There is abdominal tenderness with some guarding no rigidity no organomegaly. crystal + Psych: normal insight and normal affect/mood MSK: no joint tenderness or swelling. Digits and nails normal, no deformity : kidney or bladder not palpable but limited exam Labs/imaging reviewed. Past medical history, past surgical history, family history, social history, allergy reviewed and noted as below Family hx: no hx of CKD. Rest non-contributory renal imaging: WNL Objective - Vital Signs/Intake and Output Vital Signs (last 24 hours): Temp Pulse Resp BP Pulse Ox 98.6 F 80 20 162/84 H 98 09/25/18 06:00 09/25/18 09:45 09/25/18 06:00 09/25/18 09:46 09/25/18 06:00 Intake and Output: 09/25/18 09/25/18 06:59 18:59 Intake Total 240 Output Total 20 Balance 220 - Medications Medications: Current Medications Acetaminophen (Tylenol 325mg Tab) 650 mg PO Q6H [facility] Last Admin: 09/25/18 06:20 Dose: 650 mg Amlodipine Besylate (Norvasc) 10 mg PO DAILY [facility] Last Admin: 09/25/18 09:46 Dose: 10 mg Betamethasone/Clotrimazole (Lotrisone) 0 gm TOP 2200 [facility] Last Admin: 09/24/18 22:37 Dose: 1 units Heparin Sodium (Porcine) (Heparin) 5,000 units SC Q8 [facility]; Protocol Last Admin: 09/25/18 06:20 Dose: 5,000 units Hydralazine HCl (Apresoline) 25 mg PO Q4 PRN PRN Reason: Other Hydromorphone HCl (Dilaudid) 0.5 mg IVP Q3 PRN PRN Reason: Pain, severe (8-10) Last Admin: 09/24/18 04:58 Dose: 0.5 mg Daptomycin 490 mg/ Sodium (Chloride) 100 mls @ 200 mls/hr IV QOTHERDAY [facility]; Protocol Stop: 09/30/18 10:01 Last Admin: 09/25/18 11:21 Dose: 200 mls/hr Sodium Chloride (Sodium Chloride 0.9%) 1,000 mls @ 100 mls/hr IV .Q10H [facility] Last Admin: 09/24/18 18:05 Dose: 100 mls/hr Piperacillin Sod/Tazobactam Sod (Zosyn 2.25 Gm In 0.9% 100 Ml) 2.25 gm in 100 mls @ 100 mls/hr IVPB Q8 [facility]; Protocol Stop: 10/03/18 22:01 Last Admin: 09/25/18 06:20 Dose: 100 mls/hr Lidocaine (Lidoderm) 1 ea TD DAILY [facility] Last Admin: 09/25/18 09:44 Dose: 1 ea Metoprolol Tartrate (Lopressor) 50 mg PO BID [facility] Last Admin: 09/25/18 09:45 Dose: 50 mg Ondansetron HCl (Zofran Inj) 4 mg IVP Q4H PRN PRN Reason: Nausea/Vomiting Last Admin: 09/17/18 18:08 Dose: 4 mg Oxycodone HCl (Oxycodone Immediate Release Tab) 10 mg PO Q6H PRN PRN Reason: Pain, moderate (4-7) Pantoprazole Sodium (Protonix Ec Tab) 40 mg PO ACB [facility] Last Admin: 09/25/18 08:22 Dose: 40 mg - Labs Labs: 09/25/18 06:00 09/25/18 06:00 PT 12.3 SECONDS (9.4-12.5) 09/21/18 07:20 INR 1.07 09/21/18 07:20 APTT 23.8 Seconds (25.1-36.5) L 09/21/18 07:20
[2018-09-25] MEDS: Clotrimazole/Betamethasone Cream(15 gm) TOP SCH (23:09)
[2018-09-26] MEDS: Piperacillin/Tazobact 2.25gm 2.25 GM/100 ML BAG IVPB SCH ×3 (06:44→21:49)
[2018-09-26 07:30] LABS: HEMOGLOBIN 9.6 g/dL (12.0-16.0); MEAN CELL VOLUME 97.7 fl (80.0-105.0); MEAN CORPUSCULAR HEMOGLOBIN 31.8 pg (25.0-35.0); MEAN CORPUSCULAR HGB CONC 32.5 g/dl (31.0-37.0); MEAN PLATELET VOLUME 9.1 fl (7.0-11.0); RBC 3.02 10^6/uL (3.5-6.1); RED CELL DISTRIBUTION WIDTH 13.3 % (11.5-14.5); WHITE BLOOD COUNT 8.9 10^3/uL (4.5-11.0)
[2018-09-26 07:45] LABS: ALB/GLOB RATIO 0.9 (1.1-1.8); ALBUMIN 2.8 g/dL (3.0-4.8); CALCIUM 8.3 mg/dL (8.4-10.5)
--- NOTE | 2018-09-26 08:37 | PN ---
DATE: 09/26/2018 SUBJECTIVE: I saw her resting comfortably in bed this morning. The Ryan-Galvez drain is out. The colostomy is working. She has to learn how to do that colostomy teaching is in progress. She is eating better. She needs any pain medication last night. She took a few more steps. Clinically, she looks better. OBJECTIVE: VITAL SIGNS: 99.2 temperature, 78 pulse, 153/79 blood pressure, 18 respiratory rate, 93% O2 sat on room air. HEENT: Head is atraumatic, normocephalic. HEART: Regular rate. LUNGS: Decreased breath sounds but clear. ABDOMEN: Soft, nontender. Positive bowel sounds. Positive colostomy. Drain is out. EXTREMITIES: No edema. LABORATORY DATA: She has a 140 sodium, potassium is 3.4. I gave her potassium today, BUN 18, creatinine is 2.3, same as yesterday. Still waiting for that to come down. GFR is up to 21, sugar is 113, calcium is 8.3, phosphorous 3.6, magnesium 1.6, total bili is 0.7, AST is 20, ALT is 31, alk phos 129, total protein is 5.9. White count is 8.9, hemoglobin 9.6, hematocrit 29.5, platelets of 514,000. We will check her labs tomorrow. I will do more in the room. I want her out of bed to chair. She is eating better, which is good. Waiting for the kidney functions to come down. I understand that she will stop the IV antibiotics on Friday. I have been talking to the [place] doctor every day, hoping to get a discharge plan on Friday. Continue aggressive treatment on Luciana Rao, she has to have colostomy teaching. She is on IV antibiotics, out of bed to chair, make sure she is eating and drinking. [place] with diverticular abscess and diverticulitis. Bethel Vides DO
[2018-09-26] MEDS: Lidocaine 5% Patch TD SCH (09:05)
[2018-09-26] MEDS: Pantoprazole 40 mg EC Tab PO SCH (09:05)
--- NOTE | 2018-09-26 09:57 | CP.PCM.PN ---
Subjective - Date & Time of Evaluation Date of Evaluation: 09/26/18 Time of Evaluation: 07:15 - Subjective Subjective: Surgery- Dr. Pimentel Patient seen and examined at bedside. Used heel seat fitter machine this AM to communicate with patient. No new complaints. Minimal abdominal pain. Stoma pink, patent with air and stool output. + OOB. -n/v/f/c. Currently off of all nephrotoxic medications Objective - Vital Signs/Intake and Output Vital Signs (last 24 hours): Temp Pulse Resp BP Pulse Ox 98.8 F 87 20 139/50 L 97 09/26/18 07:00 09/26/18 07:00 09/26/18 07:00 09/26/18 09:04 09/26/18 07:00 Intake and Output: 09/26/18 09/26/18 06:59 18:59 Intake Total 240 Balance 240 - Medications Medications: Current Medications Acetaminophen (Tylenol 325mg Tab) 650 mg PO Q6H [facility] Last Admin: 09/25/18 17:14 Dose: Not Given Amlodipine Besylate (Norvasc) 10 mg PO DAILY [facility] Last Admin: 09/26/18 06:43 Dose: 10 mg Betamethasone/Clotrimazole (Lotrisone) 0 gm TOP 2200 [facility] Last Admin: 09/25/18 23:09 Dose: 1 units Heparin Sodium (Porcine) (Heparin) 5,000 units SC Q8 [facility]; Protocol Last Admin: 09/26/18 06:42 Dose: 5,000 units Hydralazine HCl (Apresoline) 25 mg PO Q4 PRN PRN Reason: Other Hydromorphone HCl (Dilaudid) 0.5 mg IVP Q3 PRN PRN Reason: Pain, severe (8-10) Last Admin: 09/24/18 04:58 Dose: 0.5 mg Daptomycin 490 mg/ Sodium (Chloride) 100 mls @ 200 mls/hr IV QOTHERDAY [facility]; P rotocol Stop: 09/30/18 10:01 Last Admin: 09/25/18 11:21 Dose: 200 mls/hr Sodium Chloride (Sodium Chloride 0.9%) 1,000 mls @ 100 mls/hr IV .Q10H [facility] Last Admin: 09/24/18 18:05 Dose: 100 mls/hr Piperacillin Sod/Tazobactam Sod (Zosyn 2.25 Gm In 0.9% 100 Ml) 2.25 gm in 100 mls @ 100 mls/hr IVPB Q8 [facility]; Protocol Stop: 10/03/18 22:01 Last Admin: 09/26/18 06:44 Dose: 100 mls/hr Lidocaine (Lidoderm) 1 ea TD DAILY [facility] Last Admin: 09/26/18 09:05 Dose: 1 ea Metoprolol Tartrate (Lopressor) 50 mg PO BID [facility] Last Admin: 09/26/18 09:04 Dose: 50 mg Ondansetron HCl (Zofran Inj) 4 mg IVP Q4H PRN PRN Reason: Nausea/Vomiting Last Admin: 09/17/18 18:08 Dose: 4 mg Oxycodone HCl (Oxycodone Immediate Release Tab) 10 mg PO Q6H PRN PRN Reason: Pain, moderate (4-7) Pantoprazole Sodium (Protonix Ec Tab) 40 mg PO ACB [facility] Last Admin: 09/26/18 09:05 Dose: 40 mg - Labs Labs: 09/26/18 06:00 09/26/18 06:00 PT 12.3 SECONDS (9.4-12.5) 09/21/18 07:20 INR 1.07 09/21/18 07:20 APTT 23.8 Seconds (25.1-36.5) L 09/21/18 07:20 - Constitutional Appears: Non-toxic, No Acute Distress - Head Exam Head Exam: ATRAUMATIC - Eye Exam Eye Exam: EOMI. absent: Scleral icterus - ENT Exam ENT Exam: Mucous Membranes Moist - Respiratory Exam Respiratory Exam: NORMAL BREATHING PATTERN. absent: Accessory Muscle Use, Respiratory Distress - Cardiovascular Exam Cardiovascular Exam: +S1, +S2. absent: Bradycardia, Tachycardia - GI/Abdominal Exam GI & Abdominal Exam: Soft. absent: Distended, Firm, Guarding, Rigid, Tenderness Additional comments: midline incision healing well Stoma pink, patent w/ good output - Extremities Exam Extremities Exam: absent: Calf Tenderness - Neurological Exam Neurological Exam: Alert, Awake, Oriented x3 - Psychiatric Exam Psychiatric exam: Normal Affect - Skin Skin Exam: Intact, Warm Assessment and Plan - Assessment and Plan (Free Text) Assessment: 68F w/ acute diverticulitis s/p Sandra POD#5, hospital course complicated by DIETER Plan: - pain control PRN - IS use - anti-emetic PRN - monitor stoma function - c/s nephrology- all recs appreciated - stop all nephrotoxic drugs - continue hydration - dvt ppx - continue to monitor - will d/w Dr. Pimentel Surgical attending PGY2
--- NOTE | 2018-09-26 12:32 | CP.PCM.PN ---
Subjective - Date & Time of Evaluation Date of Evaluation: 09/26/18 Time of Evaluation: 08:10 - Subjective Subjective: No fevers, no nausea, abdominal pain is much improved, eating better, JOSE LUIS drain has been removed. Objective - Vital Signs/Intake and Output Vital Signs (last 24 hours): Temp Pulse Resp BP Pulse Ox 98.6 F 80 20 162/84 H 98 09/25/18 06:00 09/25/18 09:45 09/25/18 06:00 09/25/18 09:46 09/25/18 06:00 Intake and Output: 09/25/18 09/25/18 06:59 18:59 Intake Total 240 Output Total 20 Balance 220 - Medications Medications: Current Medications Acetaminophen (Tylenol 325mg Tab) 650 mg PO Q6H [facility] Last Admin: 09/25/18 06:20 Dose: 650 mg Amlodipine Besylate (Norvasc) 10 mg PO DAILY [facility] Last Admin: 09/25/18 09:46 Dose: 10 mg Betamethasone/Clotrimazole (Lotrisone) 0 gm TOP 2200 [facility] Last Admin: 09/24/18 22:37 Dose: 1 units Heparin Sodium (Porcine) (Heparin) 5,000 units SC Q8 [facility]; Protocol Last Admin: 09/25/18 06:20 Dose: 5,000 units Hydralazine HCl (Apresoline) 25 mg PO Q4 PRN PRN Reason: Other Hydromorphone HCl (Dilaudid) 0.5 mg IVP Q3 PRN PRN Reason: Pain, severe (8-10) Last Admin: 09/24/18 04:58 Dose: 0.5 mg Daptomycin 490 mg/ Sodium (Chloride) 100 mls @ 200 mls/hr IV QOTHERDAY [facility]; Protocol Stop: 09/30/18 10:01 Last Admin: 09/23/18 10:58 Dose: 200 mls/hr Sodium Chloride (Sodium Chloride 0.9%) 1,000 mls @ 100 mls/hr IV .Q10H [facility] Last Admin: 09/24/18 18:05 Dose: 100 mls/hr Piperacillin Sod/Tazobactam Sod (Zosyn 2.25 Gm In 0.9% 100 Ml) 2.25 gm in 100 mls @ 100 mls/hr IVPB Q8 [facility]; Protocol Stop: 10/03/18 22:01 Last Admin: 09/25/18 06:20 Dose: 100 mls/hr Lidocaine (Lidoderm) 1 ea TD DAILY [facility] Last Admin: 09/25/18 09:44 Dose: 1 ea Metoprolol Tartrate (Lopressor) 50 mg PO BID [facility] Last Admin: 09/25/18 09:45 Dose: 50 mg Ondansetron HCl (Zofran Inj) 4 mg IVP Q4H PRN PRN Reason: Nausea/Vomiting Last Admin: 09/17/18 18:08 Dose: 4 mg Oxycodone HCl (Oxycodone Immediate Release Tab) 10 mg PO Q6H PRN PRN Reason: Pain, moderate (4-7) Pantoprazole Sodium (Protonix Ec Tab) 40 mg PO ACB [facility] Last Admin: 09/25/18 08:22 Dose: 40 mg - Labs Labs: 09/25/18 06:00 09/25/18 06:00 PT 12.3 SECONDS (9.4-12.5) 09/21/18 07:20 INR 1.07 09/21/18 07:20 APTT 23.8 Seconds (25.1-36.5) L 09/21/18 07:20 - Constitutional Appears: No Acute Distress, Chronically Ill - Head Exam Head Exam: NORMAL INSPECTION - Neck Exam Neck Exam: absent: Meningismus - Respiratory Exam Respiratory Exam: Decreased Breath Sounds - Cardiovascular Exam Cardiovascular Exam: +S1, +S2 - GI/Abdominal Exam GI & Abdominal Exam: Soft. absent: Tenderness Additional comments: dressings in place, left sided colostomy in place Assessment and Plan - Assessment and Plan (Free Text) Plan: Assessment Sepsis from severe sigmoid diverticulitis with diverticular abscess S/P IR- guided drainage, showing E. faecium (resistant to Ampicillin but sensitive to Vancomycin) - S/P ex-lap and Sandra procedure POD #5 acute renal failure, multifactorial history of breast cancer S/P right breast partial mastectomy HTN dyslipidemia history of cecal volvulus S/P bowel resection Plan continue Zosyn and renally-adjusted Daptomycin for the E. faecium; it was resistant to Ampicillin but sensitive to Vancomycin - would recommend another 2 days of antibiotics - discussed with Dr. Vides and with the patient and patient acknowledges and understands will continue to monitor clinically OR cultures are negative; continue to monitor kidney function - will hold off on using Vancomycin because of the acute renal insufficiency - renal function is slowly improving and Nephrology is following the patient
[2018-09-26] MEDS: Sodium Chloride 0.9% 1,000 ML IV SCH (13:30)
--- NOTE | 2018-09-26 15:07 | CP.PCM.PN ---
Subjective - Date & Time of Evaluation Date of Evaluation: 09/26/18 Time of Evaluation: 15:06 - Subjective Subjective: Nephrology Consultation Note: Assessment: Stable Acute Kidney Injury (N17.9) likely due to ATN and mulifactorial due to current i llness/sepsis/hemodynamic injury/contrast expose Anemia hypertension (years) chronic leg swelling and breast lumpectomy diverticulitis with pelvic abscess s/p IR guided drainage and now s/p Ex lap and maria procedure Plan No acute need for renal replacement therapy at this time. Renal function remains stable can continue IVF HTN is stable supplement lytes as needed S: seen and examined eating well no pain Physical Examination: General Appearance: Comfortable, in no acute respiratory distress, co-operative . Vitals reviewed and noted as below Head; Atraumatic, normocephalic ENT: no ulcers no thrush. Tongue is midline. Oropharynx: no rash or ulcers. EYES: Pupils are equal, round and reactive to light accommodation. Eye muscles and extraocular movement intact. Sclera is anicteric. Neck; supple no lymphadenopathy, no thyromegaly or bruit Lungs: Normal respiratory rate/effort. Breath sounds bilateral equal and clear Heart: Normal rate. s1s2 normal. No rub or gallop. Extremities: non pitting leg edema. No varicose veins Neurological: Patient is alert, awake and oriented to person, place and time. No focal deficit. Strength bilateral appropriate and equal Skin: Warm and dry. Normal turgor. No rash. Palpitation: Normal elasticity for age Abdomen: Abdomen is soft. Bowel sounds +. There is abdominal tenderness with some guarding no rigidity no organomegaly. + pouch Psych: normal insight and normal affect/mood MSK: no joint tenderness or swelling. Digits and nails normal, no deformity : kidney or bladder not palpable but limited exam Labs/imaging reviewed. Past medical history, past surgical history, family history, social history, allergy reviewed and noted as below Family hx: no hx of CKD. Rest non-contributory Objective - Vital Signs/Intake and Output Vital Signs (last 24 hours): Temp Pulse Resp BP Pulse Ox 98.3 F 75 18 133/69 96 09/26/18 14:40 09/26/18 14:40 09/26/18 14:40 09/26/18 14:40 09/26/18 14:40 Intake and Output: 09/26/18 09/26/18 06:59 18:59 Intake Total 240 Balance 240 - Medications Medications: Current Medications Acetaminophen (Tylenol 325mg Tab) 650 mg PO Q6H [facility] Last Admin: 09/25/18 17:14 Dose: Not Given Amlodipine Besylate (Norvasc) 10 mg PO DAILY [facility] Last Admin: 09/26/18 13:29 Dose: Not Given Betamethasone/Clotrimazole (Lotrisone) 0 gm TOP 2200 [facility] Last Admin: 09/25/18 23:09 Dose: 1 units Heparin Sodium (Porcine) (Heparin) 5,000 units SC Q8 [facility]; Protocol Last Admin: 09/26/18 13:28 Dose: 5,000 units Hydralazine HCl (Apresoline) 25 mg PO Q4 PRN PRN Reason: Other Hydromorphone HCl (Dilaudid) 0.5 mg IVP Q3 PRN PRN Reason: Pain, severe (8-10) Last Admin: 09/24/18 04:58 Dose: 0.5 mg Daptomycin 490 mg/ Sodium (Chloride) 100 mls @ 200 mls/hr IV QOTHERDAY [facility]; Protocol Stop: 09/30/18 10:01 Last Admin: 09/25/18 11:21 Dose: 200 mls/hr Sodium Chloride (Sodium Chloride 0.9%) 1,000 mls @ 100 mls/hr IV .Q10H [facility] Last Admin: 09/26/18 13:30 Dose: 100 mls/hr Piperacillin Sod/Tazobactam Sod (Zosyn 2.25 Gm In 0.9% 100 Ml) 2.25 gm in 100 mls @ 100 mls/hr IVPB Q8 [facility]; Protocol Stop: 10/03/18 22:01 Last Admin: 09/26/18 13:27 Dose: 100 mls/hr Lidocaine (Lidoderm) 1 ea TD DAILY [facility] Last Admin: 09/26/18 09:05 Dose: 1 ea Metoprolol Tartrate (Lopressor) 50 mg PO BID [facility] Last Admin: 09/26/18 09:04 Dose: 50 mg Ondansetron HCl (Zofran Inj) 4 mg IVP Q4H PRN PRN Reason: Nausea/Vomiting Last Admin: 09/17/18 18:08 Dose: 4 mg Oxycodone HCl (Oxycodone Immediate Release Tab) 10 mg PO Q6H PRN PRN Reason: Pain, moderate (4-7) Pantoprazole Sodium (Protonix Ec Tab) 40 mg PO ACB [facility] Last Admin: 09/26/18 09:05 Dose: 40 mg - Labs Labs: 09/26/18 06:00 09/26/18 06:00 PT 12.3 SECONDS (9.4-12.5) 09/21/18 07:20 INR 1.07 09/21/18 07:20 APTT 23.8 Seconds (25.1-36.5) L 09/21/18 07:20
[2018-09-26] MEDS ORDERED: Potassium Chloride 20 mEq ER Tab PO ONE (17:51)
[2018-09-26] MEDS: Clotrimazole/Betamethasone Cream(15 gm) TOP SCH (22:09)
[2018-09-27] MEDS: Piperacillin/Tazobact 2.25gm 2.25 GM/100 ML BAG IVPB SCH ×3 (05:11→22:20)
[2018-09-27 07:59] LABS: ALB/GLOB RATIO 0.9 (1.1-1.8); CALCIUM 8.3 mg/dL (8.4-10.5)
[2018-09-27 08:02] LABS: HEMOGLOBIN 10.1 g/dL (12.0-16.0); MEAN CELL VOLUME 97.1 fl (80.0-105.0); MEAN CORPUSCULAR HEMOGLOBIN 32.2 pg (25.0-35.0); MEAN CORPUSCULAR HGB CONC 33.1 g/dl (31.0-37.0); RBC 3.14 10^6/uL (3.5-6.1); RED CELL DISTRIBUTION WIDTH 13.2 % (11.5-14.5); WHITE BLOOD COUNT 10.1 10^3/uL (4.5-11.0)
--- NOTE | 2018-09-27 08:17 | CP.PCM.PN ---
Subjective - Date & Time of Evaluation Date of Evaluation: 09/27/18 Time of Evaluation: 08:12 - Subjective Subjective: General Surgery Progress Note for Dr. Pimentel 68F seen and evaluated at bedside this morning. No acute events overnight. No complaints this morning. Patient has output from ostomy. Ambulating. Pain is controlled. Tolerating diet. Denies f/c, n/v/d, SOB, CP, or urinary symptoms. Objective - Vital Signs/Intake and Output Vital Signs (last 24 hours): Temp Pulse Resp BP Pulse Ox 98.8 F 82 20 171/94 H 98 09/27/18 06:00 09/27/18 06:00 09/27/18 06:00 09/27/18 06:00 09/27/18 06:00 Intake and Output: 09/27/18 09/27/18 06:59 18:59 Intake Total 120 Balance 120 - Medications Medications: Current Medications Acetaminophen (Tylenol 325mg Tab) 650 mg PO Q6H [facility] Last Admin: 09/26/18 17:29 Dose: 650 mg Amlodipine Besylate (Norvasc) 10 mg PO DAILY [facility] Last Admin: 09/26/18 13:29 Dose: Not Given Betamethasone/Clotrimazole (Lotrisone) 0 gm TOP 2200 [facility] Last Admin: 09/26/18 22:09 Dose: 1 units Heparin Sodium (Porcine) ([facility]) 5,000 units SC Q8 [facility]; Protocol Last Admin: 09/27/18 05:12 Dose: 5,000 units Hydralazine HCl (Apresoline) 25 mg PO Q4 PRN PRN Reason: Other Hydromorphone HCl (Dilaudid) 0.5 mg IVP Q3 PRN PRN Reason: Pain, severe (8-10) Last Admin: 09/24/18 04:58 Dose: 0.5 mg Daptomycin 490 mg/ Sodium (Chloride) 100 mls @ 200 mls/hr IV QOTHERDAY [facility]; Protocol Stop: 09/30/18 10:01 Last Admin: 09/25/18 11:21 Dose: 200 mls/hr Sodium Chloride (Sodium Chloride 0.9%) 1,000 mls @ 100 mls/hr IV .Q10H [facility] Last Admin: 09/26/18 13:30 Dose: 100 mls/hr Piperacillin Sod/Tazobactam Sod (Zosyn 2.25 Gm In 0.9% 100 Ml) 2.25 gm in 100 mls @ 100 mls/hr IVPB Q8 [facility]; Protocol Stop: 10/03/18 22:01 Last Admin: 09/27/18 05:11 Dose: 100 mls/hr Lidocaine (Lidoderm) 1 ea TD DAILY [facility] Last Admin: 09/26/18 09:05 Dose: 1 ea Metoprolol Tartrate (Lopressor) 50 mg PO BID [facility] Last Admin: 09/26/18 17:29 Dose: 50 mg Ondansetron HCl (Zofran Inj) 4 mg IVP Q4H PRN PRN Reason: Nausea/Vomiting Last Admin: 09/17/18 18:08 Dose: 4 mg Oxycodone HCl (Oxycodone Immediate Release Tab) 10 mg PO Q6H PRN PRN Reason: Pain, moderate (4-7) Pantoprazole Sodium (Protonix Ec Tab) 40 mg PO ACB [facility] Last Admin: 09/26/18 09:05 Dose: 40 mg - Labs Labs: 09/27/18 07:40 09/27/18 07:40 PT 12.3 SECONDS (9.4-12.5) 09/21/18 07:20 INR 1.07 09/21/18 07:20 APTT 23.8 Seconds (25.1-36.5) L 09/21/18 07:20 - Constitutional Appears: Well, Non-toxic, No Acute Distress - Head Exam Head Exam: ATRAUMATIC, NORMAL INSPECTION, NORMOCEPHALIC - Eye Exam Eye Exam: EOMI - ENT Exam ENT Exam: Mucous Membranes Moist - Respiratory Exam Respiratory Exam: NORMAL BREATHING PATTERN - GI/Abdominal Exam GI & Abdominal Exam: Soft, Normal Bowel Sounds. absent: Tenderness Additional comments: ostomy pink, patent, and productive - Neurological Exam Neurological Exam: Alert, Awake - Psychiatric Exam Psychiatric exam: Normal Affect, Normal Mood - Skin Skin Exam: Dry, Intact, Normal Color, Warm Assessment and Plan - Assessment and Plan (Free Text) Assessment: 68F w/ acute diverticulitis s/p Sandra's procedure POD6 Plan: Continue IV Abx per ID Encourage ambulation and IS use Continue analgesics and antiemetics Monitor ostomy output Cleared for discharge from a surgical standpoint D/w Dr. Margarito Trinidad PGY1
[2018-09-27] MEDS: Lidocaine 5% Patch TD SCH (09:23)
[2018-09-27] MEDS: Pantoprazole 40 mg EC Tab PO SCH (09:23)
[2018-09-27] MEDS: Sodium Chloride 0.9% 1,000 ML IV SCH ×2 (09:26→17:35)
--- NOTE | 2018-09-27 11:16 | PN ---
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 Presently, on daptomycin, Dilaudid, heparin, Lopressor, Lotrisone, Norvasc, oxycodone, Protonix, IV fluids, Tylenol, Zofran and Zosyn. Tomorrow, understands to be off daptomycin and Zosyn. She has not used the pain medication. She is walking better. She is learning the colostomy. The drain is out. She is eating, so tomorrow is a discharge day back to [place]. OBJECTIVE: VITAL SIGNS: She has a 98.8 temperature, 82 pulse, 133/88 blood pressure, 20 respiratory rate, 90% O2 sat on room air. HEENT: Head: Atraumatic, normocephalic. HEART: Regular rate. LUNGS: Decreased breath sounds, clear. ABDOMEN: Soft. Nontender. She has a colostomy, it is working. EXTREMITIES: No edema. LABORATORY DATA: She has a 10.1 white count, 10.1 hemoglobin, 30.5 hematocrit with 504,000 platelets. She has a 141 sodium, potassium 3.6, BUN is 15, creatinine is down to 2.2, GFR is up to 27. Her kidney functions are improving each day. Sugar was 120, calcium is 8.3. Total bili is 0.6, AST is 33, ALT is 28, alk phos 126, total protein 6.2. Each day better and better, today is the best day I have seen her, this is great. PLAN: The plan will be to discharge her tomorrow. Stop the antibiotics. We will get her to [place] with doctor coming from [facility] to take her on an airplane. Bethel Vides DO
--- NOTE | 2018-09-27 11:36 | CP.PCM.PN ---
Subjective - Date & Time of Evaluation Date of Evaluation: 09/27/18 Time of Evaluation: 08:55 - Subjective Subjective: Patient is able to ambulate around, no abdominal pain currently, no fevers, eating better. Objective - Vital Signs/Intake and Output Vital Signs (last 24 hours): Temp Pulse Resp BP Pulse Ox 98.8 F 87 20 139/50 L 97 09/26/18 07:00 09/26/18 07:00 09/26/18 07:00 09/26/18 09:04 09/26/18 07:00 Intake and Output: 09/26/18 09/26/18 06:59 18:59 Intake Total 240 Balance 240 - Medications Medications: Current Medications Acetaminophen (Tylenol 325mg Tab) 650 mg PO Q6H [facility] Last Admin: 09/25/18 17:14 Dose: Not Given Amlodipine Besylate (Norvasc) 10 mg PO DAILY [facility] Last Admin: 09/26/18 06:43 Dose: 10 mg Betamethasone/Clotrimazole (Lotrisone) 0 gm TOP 2200 [facility] Last Admin: 09/25/18 23:09 Dose: 1 units Heparin Sodium (Porcine) (Heparin) 5,000 units SC Q8 [facility]; Protocol Last Admin: 09/26/18 06:42 Dose: 5,000 units Hydralazine HCl (Apresoline) 25 mg PO Q4 PRN PRN Reason: Other Hydromorphone HCl (Dilaudid) 0.5 mg IVP Q3 PRN PRN Reason: Pain, severe (8-10) Last Admin: 09/24/18 04:58 Dose: 0.5 mg Daptomycin 490 mg/ Sodium (Chloride) 100 mls @ 200 mls/hr IV QOTHERDAY [facility]; Protocol Stop: 09/30/18 10:01 Last Admin: 09/25/18 11:21 Dose: 200 mls/hr Sodium Chloride (Sodium Chloride 0.9%) 1,000 mls @ 100 mls/hr IV .Q10H [facility] Last Admin: 09/24/18 18:05 Dose: 100 mls/hr Piperacillin Sod/Tazobactam Sod (Zosyn 2.25 Gm In 0.9% 100 Ml) 2.25 gm in 100 mls @ 100 mls/hr IVPB Q8 [facility]; Protocol Stop: 10/03/18 22:01 Last Admin: 09/26/18 06:44 Dose: 100 mls/hr Lidocaine (Lidoderm) 1 ea TD DAILY [facility] Last Admin: 09/26/18 09:05 Dose: 1 ea Metoprolol Tartrate (Lopressor) 50 mg PO BID [facility] Last Admin: 09/26/18 09:04 Dose: 50 mg Ondansetron HCl (Zofran Inj) 4 mg IVP Q4H PRN PRN Reason: Nausea/Vomiting Last Admin: 09/17/18 18:08 Dose: 4 mg Oxycodone HCl (Oxycodone Immediate Release Tab) 10 mg PO Q6H PRN PRN Reason: Pain, moderate (4-7) Pantoprazole Sodium (Protonix Ec Tab) 40 mg PO ACB [facility] Last Admin: 09/26/18 09:05 Dose: 40 mg - Labs Labs: 09/26/18 06:00 09/26/18 06:00 PT 12.3 SECONDS (9.4-12.5) 09/21/18 07:20 INR 1.07 09/21/18 07:20 APTT 23.8 Seconds (25.1-36.5) L 09/21/18 07:20 - Constitutional Appears: No Acute Distress, Chronically Ill - Head Exam Head Exam: NORMAL INSPECTION - Respiratory Exam Respiratory Exam: Decreased Breath Sounds - Cardiovascular Exam Cardiovascular Exam: +S1, +S2 - GI/Abdominal Exam GI & Abdominal Exam: Soft. absent: Tenderness Assessment and Plan - Assessment and Plan (Free Text) Plan: Assessment Sepsis from severe sigmoid diverticulitis with diverticular abscess S/P IR- guided drainage, showing E. faecium (resistant to Ampicillin but sensitive to Vancomycin) - S/P ex-lap and Sandra procedure POD #6 acute renal failure, multifactorial history of breast cancer S/P right breast partial mastectomy HTN dyslipidemia history of cecal volvulus S/P bowel resection Plan continue Zosyn and renally-adjusted Daptomycin for the E. faecium; it was resistant to Ampicillin but sensitive to Vancomycin - would recommend another day of antibiotics - discussed with Dr. Vides and with the patient and patient acknowledges and understands will continue to monitor clinically OR cultures are negative; continue to monitor kidney function - renal function is slowly improving and Nephrology is following the patient
[2018-09-27 22:52] VITALS: RESP 20
[2018-09-28] MEDS: Piperacillin/Tazobact 2.25gm 2.25 GM/100 ML BAG IVPB SCH (05:25)
[2018-09-28] MEDS ORDERED: Lidocaine 2% Inj (20ml) ONE (07:23)
[2018-09-28] MEDS ORDERED: Bupivacaine 0.5% 50 ML IJ ONE (07:24)
[2018-09-28 07:56] VITALS: PULSE 76; TEMP 98.3; O2SAT 96
[2018-09-28] MEDS ORDERED: Enoxaparin 40 mg Syringe SC SCH (08:00)
[2018-09-28] MEDS: Lidocaine 5% Patch TD SCH (09:15)
[2018-09-28] MEDS: Pantoprazole 40 mg EC Tab PO SCH (09:16)
[2018-09-28 09:18] VITALS: BP 160/80
--- NOTE | 2018-09-28 12:08 | CP.PCM.PN ---
Subjective - Date & Time of Evaluation Date of Evaluation: 09/28/18 Time of Evaluation: 08:15 - Subjective Subjective: Patient is feeling much better, no fevers, no abdominal pain, eating better, no nausea. Objective - Vital Signs/Intake and Output Vital Signs (last 24 hours): Temp Pulse Resp BP Pulse Ox 98.8 F 81 20 133/88 98 09/27/18 06:00 09/27/18 09:23 09/27/18 06:00 09/27/18 09:24 09/27/18 06:00 Intake and Output: 09/27/18 09/27/18 06:59 18:59 Intake Total 120 Balance 120 - Medications Medications: Current Medications Acetaminophen (Tylenol 325mg Tab) 650 mg PO Q6H [facility] Last Admin: 09/26/18 17:29 Dose: 650 mg Amlodipine Besylate (Norvasc) 10 mg PO DAILY [facility] Last Admin: 09/27/18 09:24 Dose: 10 mg Betamethasone/Clotrimazole (Lotrisone) 0 gm TOP 2200 [facility] Last Admin: 09/26/18 22:09 Dose: 1 units Heparin Sodium (Porcine) (Heparin) 5,000 units SC Q8 [facility]; Protocol Last Admin: 09/27/18 05:12 Dose: 5,000 units Hydralazine HCl (Apresoline) 25 mg PO Q4 PRN PRN Reason: Other Hydromorphone HCl (Dilaudid) 0.5 mg IVP Q3 PRN PRN Reason: Pain, severe (8-10) Last Admin: 09/24/18 04:58 Dose: 0.5 mg Daptomycin 490 mg/ Sodium (Chloride) 100 mls @ 200 mls/hr IV QOTHERDAY [facility]; Protocol Stop: 09/30/18 10:01 Last Admin: 09/27/18 11:06 Dose: 200 mls/hr Piperacillin Sod/Tazobactam Sod (Zosyn 2.25 Gm In 0.9% 100 Ml) 2.25 gm in 100 mls @ 100 mls/hr IVPB Q8 [facility]; Protocol Stop: 10/03/18 22:01 Last Admin: 09/27/18 05:11 Dose: 100 mls/hr Sodium Chloride (Sodium Chloride 0.9%) 1,000 mls @ 100 mls/hr IV .Q10H [facility] Last Admin: 09/27/18 09:26 Dose: 100 mls/hr Lidocaine (Lidoderm) 1 ea TD DAILY [facility] Last Admin: 09/27/18 09:23 Dose: 1 ea Metoprolol Tartrate (Lopressor) 50 mg PO BID [facility] Last Admin: 09/27/18 09:23 Dose: 50 mg Ondansetron HCl (Zofran Inj) 4 mg IVP Q4H PRN PRN Reason: Nausea/Vomiting Last Admin: 09/17/18 18:08 Dose: 4 mg Oxycodone HCl (Oxycodone Immediate Release Tab) 10 mg PO Q6H PRN PRN Reason: Pain, moderate (4-7) Pantoprazole Sodium (Protonix Ec Tab) 40 mg PO ACB [facility] Last Admin: 09/27/18 09:23 Dose: 40 mg - Labs Labs: 09/27/18 07:40 09/27/18 07:40 PT 12.3 SECONDS (9.4-12.5) 09/21/18 07:20 INR 1.07 09/21/18 07:20 APTT 23.8 Seconds (25.1-36.5) L 09/21/18 07:20 - Constitutional Appears: Chronically Ill - Head Exam Head Exam: NORMAL INSPECTION - Respiratory Exam Respiratory Exam: Decreased Breath Sounds - Cardiovascular Exam Cardiovascular Exam: +S1, +S2 - GI/Abdominal Exam GI & Abdominal Exam: Soft. absent: Tenderness Assessment and Plan - Assessment and Plan (Free Text) Plan: Assessment S/P Sepsis from severe sigmoid diverticulitis with diverticular abscess S/P IR- guided drainage, showing E. faecium (resistant to Ampicillin but sensitive to Vancomycin) - S/P ex-lap and Sandra procedure POD #7 acute renal failure, multifactorial history of breast cancer S/P right breast partial mastectomy HTN dyslipidemia history of cecal volvulus S/P bowel resection Plan on Zosyn and renally-adjusted Daptomycin for the E. faecium; it was resistant to Ampicillin but sensitive to Vancomycin - has had 7 days of antibiotics since surgery - discussed with Dr. Vides and we can d/c antibiotics OR cultures are negative; continue to monitor kidney function - renal function is slowly improving and Nephrology is following the patient
--- NOTE | 2018-09-28 12:32 | DS ---
HISTORY OF PRESENT ILLNESS: She is from [place]. She had a diverticulitis with two abscesses. She eventually went for right hemicolectomy and colostomy. She did not want it first, then agreed that we could not get her back to [place]. She is doing much better now. She will be off IV antibiotics. She will be on medications. She will be on Apresoline, Lopressor, Norvasc, Protonix, Zofran, Tylenol . PHYSICAL EXAMINATION: VITAL SIGNS: She has a 98.3 temp, 76 pulse, 161/79 blood pressure, 20 respiratory rate, 96% O2 sat on room air. HEENT: Head is atraumatic, normocephalic. HEART: Regular rate. LUNGS: Clear to auscultation. ABDOMEN: Soft. Positive bowel sounds. Positive colostomy, it is working. EXTREMITIES: No edema. She colostomy. LABORATORY DATA: She has a 141 sodium, potassium is 3.6, BUN is 55, creatinine 2.2 getting better, GFR is 22, sugar is 120, calcium is 8.3, total bili is 0.6, AST is 33, ALT is 20, alk phos 126, and total protein is 6.2. White count 10.1, hemoglobin 10.1, hematocrit 30.5, and platelets 504,000. ASSESSMENT AND PLAN: I discussed this with the patient, I discussed with Infectious Disease. She is now off antibiotics. I discussed this with the [place] doctor. I tried to give the medicines, but they would not give it; I tried a prescription that [facility] get [facility]. Diverticulitis, two abscesses status post right hemicolectomy with colostomy and can be reversed in three months. Bethel Vides DO MTDD
--- NOTE | 2018-09-28 15:59 | CP.PCM.PN ---
Subjective - Date & Time of Evaluation Date of Evaluation: 09/28/18 Time of Evaluation: 15:58 - Subjective Subjective: Nephrology Consultation Note: Assessment: Stable Acute Kidney Injury (N17.9) likely due to ATN and mulifactorial due to current i llness/sepsis/hemodynamic injury/contrast expose Anemia hypertension (years) chronic leg swelling and breast lumpectomy diverticulitis with pelvic abscess s/p IR guided drainage and now s/p Ex lap and maria procedure Plan No acute need for renal replacement therapy at this time. anticipate spontaneous renal function improvement over next few days/week Hypertension control with meds as ordered. Maintain hemodynamics stable. Avoid hypotension. Patient not on ACEI/ARB due to recent DIETER Monitor Input/Output, daily weights and renal function with basic metabolic panel d/c IVF supplement lytes as needed asked RN to check bladder scan to r/o retention which was done and negative Dose meds/antibiotics for reduced GFR. Avoid fleets enema/magnesium based laxatives. Avoid nephrotoxins/NSAIDs/ iodinated contrast (unless needed emergently) Glycemic control Further work up/management as per primary team pt stable from renal perspective Thanks for allowing me to participate in care of your patient. Will follow patient with you. Please call if any Qs Dr Pablo Johnson Office: [phone] Chief Complaint; none Reason for consult: Acute Kidney Injury HPI: Pt is a 68 F with hx of hypertension (years) chronic leg swelling and breast lumpectomy, on cruise from [place] presented with complaints of pain abdomen, found to have diverticulitis with pelvic abscess s/p IR guided drainage and now s/p Ex lap and maria procedure. renal consult for DIETER eval Denies OTC/herbal meds or NSAIDs Noted recent iodinated contrast exposure done on 09/18/18 and surgery done on 09/21/18. No obvious episodes of low BP. intra-op SBP 120-140s and DBP 50-60s ROS: no new complaints. feels better. being d/c today Physical Examination: General Appearance: Comfortable, in no acute respiratory distress, co-operative . Vitals reviewed and noted as below Head; Atraumatic, normocephalic ENT: no ulcers no thrush. Tongue is midline. Oropharynx: no rash or ulcers. EYES: Pupils are equal, round and reactive to light accommodation. Eye muscles and extraocular movement intact. Sclera is anicteric. Neck; supple no lymphadenopathy, no thyromegaly or bruit Lungs: Normal respiratory rate/effort. Breath sounds bilateral equal and clear Heart: Normal rate. s1s2 normal. No rub or gallop. Extremities: non pitting leg edema. No varicose veins Neurological: Patient is alert, awake and oriented to person, place and time. No focal deficit. Strength bilateral appropriate and equal Skin: Warm and dry. Normal turgor. No rash. Palpitation: Normal elasticity for age Abdomen: Abdomen is soft. Bowel sounds +. There is abdominal tenderness with some guarding no rigidity no organomegaly. crystal + Psych: normal insight and normal affect/mood MSK: no joint tenderness or swelling. Digits and nails normal, no deformity : kidney or bladder not palpable but limited exam Labs/imaging reviewed. Past medical history, past surgical history, family history, social history, allergy reviewed and noted as below Family hx: no hx of CKD. Rest non-contributory renal imaging: WNL Objective - Vital Signs/Intake and Output Vital Signs (last 24 hours): Temp Pulse Resp BP Pulse Ox 98.3 F 76 20 160/80 H 96 09/28/18 06:00 09/28/18 09:15 09/28/18 06:00 09/28/18 09:16 09/28/18 06:00 Intake and Output: 09/28/18 09/28/18 06:59 18:59 Intake Total 240 Balance 240 - Medications Medications: Current Medications Acetaminophen (Tylenol 325mg Tab) 650 mg PO Q6H [facility] Last Admin: 09/28/18 06:31 Dose: Not Given Amlodipine Besylate (Norvasc) 10 mg PO DAILY [facility] Last Admin: 09/28/18 09:16 Dose: 10 mg Betamethasone/Clotrimazole (Lotrisone) 0 gm TOP 2200 [facility] Last Admin: 09/26/18 22:09 Dose: 1 units Hydralazine HCl (Apresoline) 25 mg PO Q4 PRN PRN Reason: Other Piperacillin Sod/Tazobactam Sod (Zosyn 2.25 Gm In 0.9% 100 Ml) 2.25 gm in 100 mls @ 100 mls/hr IVPB Q8 [facility]; Protocol Stop: 10/03/18 22:01 Last Admin: 09/28/18 05:25 Dose: 100 mls/hr Lidocaine (Lidoderm) 1 ea TD DAILY [facility] Last Admin: 09/28/18 09:15 Dose: 1 ea Metoprolol Tartrate (Lopressor) 50 mg PO BID [facility] Last Admin: 09/28/18 09:15 Dose: 50 mg Ondansetron HCl (Zofran Inj) 4 mg IVP Q4H PRN PRN Reason: Nausea/Vomiting Last Admin: 09/17/18 18:08 Dose: 4 mg Pantoprazole Sodium (Protonix Ec Tab) 40 mg PO ACB [facility] Last Admin: 09/28/18 09:16 Dose: 40 mg - Labs Labs: 09/27/18 07:40 09/27/18 07:40 PT 12.3 SECONDS (9.4-12.5) 09/21/18 07:20 INR 1.07 09/21/18 07:20 APTT 23.8 Seconds (25.1-36.5) L 09/21/18 07:20
--- NOTE | 2018-10-05 18:11 | OP ---
PROCEDURE DATE: 09/21/2018 PREOPERATIVE DIAGNOSIS: Perforated diverticulitis. POSTOPERATIVE DIAGNOSIS: Perforated diverticulitis. OPERATION PERFORMED: Exploratory laparotomy, sigmoid colectomy, and sigmoid colostomy. SURGEON: Onur Pimentel MD. ASSISTANTS: Dr. Dalton and Dr. Armand Jarvis. TYPE OF ANESTHESIA: Endotracheal anesthesia. DESCRIPTION OF PROCEDURE: In the operating room, the patient was identified by name, name of procedure, laterality, my [place], and the consent. Richey was in place. Endotracheal anesthesia was used. After the successful time-out and discussion with the patient, the patient had a diverticulitis with a new abscess on the right ovary, status post drainage. The right drain was left intact, but prepped into the wound, the iodoform drape was used. Going to the abdomen, the abdomen was entered rather quickly. The anatomy was initially difficult. However, using Kochers on the peritoneum, we were able to sweep the peritoneum off the pelvis. The small bowel distally was densely adherent to the abscess cavity, especially in the midline and over the right ovary. This was peeled away mostly bluntly, but with the cautery and scissors as necessary. There was a small serosal tear that was sutured with silk. There was no mucosal injury. With the small bowel swept out of the way, the sigmoid colon was readily identified and laterally starting at the line of Toldt at the point of election. This was followed down into the pelvis. The anatomy became a little bit confusing. So, the uterus was pulled up with a chromic and this allowed us to separate the plane very nicely between the posterior part of the uterus and the anterior part of the rectosigmoid. On either side, it was followed down into the pelvis and free area was identified first on the left side. On the right side, going inferiorly, we entered into the abscess with the identified pelvic drain, which was removed. This was cultured aerobically and anaerobically and irrigated eventually with Clorpactin. The ureter on the left side was identified clearly and the sigmoid was cleaned up very nicely. Going to the right ovary, on the ovaries identified on the CAT scan, an abscess was identified and cleaned. The ovary on either side was itself probably normal. It was seen that the rectosigmoid perforation was probably distal and a plan was devised dividing the colon proximally at the point election that was followed down, entering the plane on the promontory a small amount of rectum was . This was brought up, clearly identifying the ureters being beside the were taken with the LigaSure under direct vision. Posteriorly, the inferior mesenteric was taken with the LigaSure x2 and it came up very nicely. It was taken with a reticulator. Distal end was cleaned. It was pegged with a Prolene stitch, left long for easy identification on the reoperation. The small bowel was run. The abdomen was cleaned with Clorpactin and dried. Discussed putting her back together, but she is going to be transferred to very quickly and I think the Sandra's would facilitate that. At the point of election left lower quadrant, a small sigmoid colostomy was fashioned. It was brought through the fascia very nicely without tension. The length was beautiful. The sutured distal colon was pegged with a [place]. The wounds were injected with Marcaine. The Drake was placed into the pelvic abscess cavity. The omentum doubly clipped, was put into the pelvis. The rest of the abdomen was unremarkable, There is nothing in the liver, stomach. NG tube was placed. Colon was otherwise unremarkable and hemostasis was assured. The incision was closed with a running #1 PDS above and below, tied in the middle with a buried knot. The incision was closed over a Chanelle and the skin was stapled. Binder was placed there with a dressing and the patient taken to recovery room in good condition after the sponge and needle count was declared correct. nOur Pimentel MD
== END 2018-09-28 16:22 | disposition home or self-care (01) | DRG 853 ==
LOC: ED 01:54 → EDBD 06:05 → ERH 06:05 → 5RNO 08:30
PROVIDERS: ADMIT Family Medicine; ATTEND Family Medicine
PROC: 0W9J30Z Drainage of Pelvic Cavity with Drainage Device, Percutaneous Approach (ICD-10-PCS; 2018-09-14)
PROC: 0DTN0ZZ Resection of Sigmoid Colon, Open Approach (ICD-10-PCS; principal; 2018-09-21 15:00)
PROC: 0D1N0Z4 Bypass Sigmoid Colon to Cutaneous, Open Approach (ICD-10-PCS; 2018-09-21 15:00)
DX: A41.9 Sepsis, unspecified organism (principal); N17.0 Acute kidney failure with tubular necrosis; K57.20 Diverticulitis of large intestine with perforation and abscess without bleeding; I43 Cardiomyopathy in diseases classified elsewhere; I11.9 Hypertensive heart disease without heart failure; E87.6 Hypokalemia; E78.5 Hyperlipidemia, unspecified; K66.8 Other specified disorders of peritoneum; Z16.11 Resistance to penicillins; Z85.3 Personal history of malignant neoplasm of breast; Z79.810 Long term (current) use of selective estrogen receptor modulators (SERMs); Z92.3 Personal history of irradiation; Z92.21 Personal history of antineoplastic chemotherapy